=== PATIENT | male | born 1940 | race Caucasian/White ===

== ENCOUNTER → 2016-09-24 10:38 | Outpatient (CLI) | payer MEDICARE, OTHER ==
[2015-12-10 08:00] VITALS: BMI 27.3
[~2016-09-24 10:38] MED LIST: ASPIRIN325 MG PO; BAYER CHEWABLE81 MG PO; BENICAR20 MG PO; DIOVAN160 MG PO; FLOMAX0.4 MG; FLOMAX0.4 MG PO; HYDROCHLOROTHIA25 MG PO; MEDROL DOSE PACK4 MG PO; NORVASC5 MG PO; PLAVIX75 MG PO; PREVACID30 MG PO
[2016-09-24 11:30] LABS: INR 1.14 (0.85-1.17); PROTIME 14.5 SECONDS (11.6-15.0)
[2016-09-24 12:01] LABS: ALBUMIN 3.3 g/dL (3.4-5.0); ANION GAP 15.3 mmol/L (8-16); BILIRUBIN - TOTAL 1.21 mg/dL (0.2-1.3); CARBON DIOXIDE 22.8 mmol/L (21.0-32.0); CREATININE - SERUM 1.6 mg/dL (0.6-1.3); POTASSIUM - SERUM 4.1 mmol/L (3.5-5.1); PROTEIN - SERUM 7.5 g/dL (6.4-8.2)
[2016-09-25 10:19] LABS: HEPATITIS C ANTIBODY <0.1 (0.0-0.9)
== END | disposition home or self-care (01) ==
LOC: D.LAB 10:38 → D.CT 11:30
PROVIDERS: Internal Medicine Gastroenterology
DX: R10.9 Unspecified abdominal pain (principal); R06.02 Shortness of breath; R63.5 Abnormal weight gain

== ENCOUNTER 2016-09-30 15:11 | Inpatient (IN) | payer MEDICARE, OTHER ==
[~2016-09-30] VITALS: Ht 170.2 cm; Wt 83.8 kg
[2016-09-30 15:44] LABS: BASOPHILS 0.4 % (0-2); EOSINOPHILS 1.7 % (0-7); HEMATOCRIT 33.1 % (42.0-54.0); HEMOGLOBIN 9.1 g/dL (13.5-17.5); IMMATURE GRANULOCYTES 0.4 % (0-5); LYMPHOCYTES 16.1 % (15-50); MCH 21.5 pg (26.0-34.0); MCHC 27.5 g/dL (31.0-37.0); MCV 78.1 fL (80.0-100.0); MEAN PLATELET VOLUME 8.9 fL (7.4-10.4); MONOCYTES 12.4 % (2-11); RBC 4.24 10x6/uL (4.20-6.10); RDW 19.8 % (11.5-14.5); WBC 4.6 10x3/uL (4.8-10.8)
[2016-09-30 16:05] LABS: ALBUMIN 3.5 g/dL (3.4-5.0); ANION GAP 16.9 mmol/L (8-16); BILIRUBIN - TOTAL 1.06 mg/dL (0.2-1.3); CARBON DIOXIDE 21.3 mmol/L (21.0-32.0); CREATININE - SERUM 1.6 mg/dL (0.6-1.3); POTASSIUM - SERUM 4.2 mmol/L (3.5-5.1); PROTEIN - SERUM 7.5 g/dL (6.4-8.2)
[2016-09-30 16:13] LABS: TROPONIN-I 0.051 ng/mL (0.000-0.060)
[2016-09-30 16:28] LABS: PLATELET COUNT 212 10x3/uL (130-400)
[2016-09-30 20:17] LABS: APPEARANCE CLEAR (CLEAR); BILIRUBIN NEGATIVE (NEGATIVE); COLOR YELLOW (YELLOW); GLUCOSE NEGATIVE (NEGATIVE); KETONE NEGATIVE (NEGATIVE); LEUKOCYTE ESTERASE NEGATIVE (NEGATIVE); NITRITE NEGATIVE (NEGATIVE); PROTEIN NEGATIVE (NEGATIVE); UROBILINOGEN NORMAL (NORMAL)
--- NOTE | 2016-09-30 20:54 | NUR ---
RECEIVED FROM ER, [id number], O2-4L, PLACED ON TELEMTRY, SCD ARE ON, BED IS LOW, SR X2, CALL LIGHT IN REACH, WILL CONTINUE TO MONITOR
[2016-09-30] MEDS ORDERED: FUROSEMIDE20 MG PO (20:57)
[2016-09-30] MEDS ORDERED: BREO ELLIPTA 21 EACH (20:57)
[2016-09-30 21:17] VITALS: BP 142/78
--- NOTE | 2016-09-30 23:19 | NUR ---
PT REST IN BED, EYE OPEN, DENIES NEEDS.
[2016-10-01] VITALS (7 sets, daily range): BP systolic 111–142; BP diastolic 56–79; Ht 170.2 cm; Wt 83.8 kg
--- NOTE | 2016-10-01 03:02 | NUR ---
PT LYING IN BED, AWAKE, ALERT, ORIENTED, IN NO ACUTE DISTRESS. PT DENIES ANY NEEDS AT THIS TIME. WILL CONTINUE TO MONITOR CLOSELY. BED LOW, CALL LIGHT IN REACH, SIDE RAILS X 2, HOB 30 DEGREES. PT TO CALL WHEN NEEDING ANY ASSISTANCE.
--- NOTE | 2016-10-01 04:31 | NUR ---
PT IS SLEEPING. BED IS LOW, SRX2, CALL LIGHT IN REACH, WILL CONTINUE TO MONITOR
[2016-10-01 14:13] LABS: % SATURATION 5 % (15-55); IRON 24 ug/dl (35-150); TOTAL IRON BIND CAPACITY 435 ug/dl (260-445); UNSAT IRON BIND CAPACITY 411 ug/dl (150-375)
--- NOTE | 2016-10-01 20:50 | NUR ---
PT RECEIVED SITTING UP IN BED AAOX3 WATCHING TV AT THIS TIME. REQUESTS ICE CREAM AND A NEW GOWN. ASSESSMENT COMPLETED PER FLOW SHEET AT THIS TIME. PT DENIES OTHER NEEDS. BED LOW. PHONE AND CALL LIGHT IN REACH. SRX2.
--- NOTE | 2016-10-01 23:56 | NUR ---
PT RESTING QUIETLY AT THIS TIME WITH EYES CLOSED. RESPIRATIONS EVEN, NON-LABORED. NO ACUTE DISTRESS NOTED AT THIS TIME. BED LOW. PHONE AND CALL LIGHT IN REACH. SRX2.
--- NOTE | 2016-10-02 01:00 | NUR ---
PT REQUESTS COKE AT THIS TIME. DENIES OTHER NEEDS. BED LOW. PHONE AND CALL LIGHT IN REACH. SRX2.
[2016-10-02 04:00] VITALS: BP 98/48
--- NOTE | 2016-10-02 05:20 | NUR ---
LASIX IVP GIVEN AT THIS TIME. PT REQUESTS NEW GOWN AND TOWEL AT THIS TIME. DENIES OTHER NEEDS. BED LOW. PHONE AND CALL LIGHT IN REACH. SRX2.
[2016-10-02 05:45] LABS: BASOPHILS 0.6 % (0-2); EOSINOPHILS 3.7 % (0-7); HEMATOCRIT 32.2 % (42.0-54.0); HEMOGLOBIN 9.1 g/dL (13.5-17.5); IMMATURE GRANULOCYTES 0.2 % (0-5); LYMPHOCYTES 15.3 % (15-50); MCH 21.5 pg (26.0-34.0); MCHC 28.3 g/dL (31.0-37.0); MEAN PLATELET VOLUME 9.2 fL (7.4-10.4); MONOCYTES 13.7 % (2-11); NEUTROPHILS 66.5 % (40-80); PLATELET COUNT 236 10x3/uL (130-400); RBC 4.24 10x6/uL (4.20-6.10); RDW 19.6 % (11.5-14.5); WBC 5.2 10x3/uL (4.8-10.8)
[2016-10-02 06:03] LABS: ANION GAP 14.6 mmol/L (8-16); CALCIUM 9.1 mg/dL (8.5-10.1); CARBON DIOXIDE 24.4 mmol/L (21.0-32.0); CREATININE - SERUM 1.6 mg/dL (0.6-1.3)
[2016-10-02 06:16] LABS: MCV 75.9 fL (80.0-100.0)
[2016-10-02 08:17] VITALS: BP 111/61
[2016-10-02 08:21] LABS: FOLATE (FOLIC ACID) - SERUM 13.7 ng/mL (>3.0)
--- NOTE | 2016-10-02 08:54 | NUR ---
PT UP TO BR. AMBULATING WITH EVEN GAIT. BREAKFAST TRAY AT BEDSIDE WITH 75% EATEN. STATES " I'M TOO FULL TO EAT MORE". MEDICATIONS GIVEN ORDERED. S/R UP X 2, CALL LIGHT WITHIN REACH, BED IN LOWEST POSITION. REPOSITIONED IN BED. STATES NO FURTHER NEEDS AT THIS TIME. WILL CONTINUE TO MONITOR.
[2016-10-02] MEDS ORDERED: FERREX 150 PLUS1 CAP PO (11:46)
[2016-10-02 12:00] VITALS: BP 108/56
--- NOTE | 2016-10-02 13:55 | NUR ---
IV DC'D WITH TIP INTACT. COVERED WITH 2X2 GAUZE AND TAPE. TOLERATED WELL. HUIZAR DC'D WITH TIP INTACT. REMOVED 10CC CLEAR FLUID FROM BALLOON BEFORE REMOVAL. TOLERATED WELL. DISCHARGE INSTRUCTIONS REVIEWED WITH PT AND SPOUSE. VERBAL AND WRITTEN ACKNOWLEDGEMENT RETURNED
--- NOTE | 2016-10-02 14:02 | NUR ---
Patient Name: CONTRERAS SHARMA Admission Status: ER Accout number: [id number] Admission Date: 10-01-2016 : 1940 Admission Diagnosis: Attending: GERARDO Current LOS: 1 Anticipated DC Date: 10-02-2016 Planned Disposition: Home Primary Insurance: MEDICARE A & B Discharge Planning Comments: * Is the patient Alert and Oriented? Yes 0 * How many steps to enter\exit or inside your home? 4 0 * PCP DR. DUSTIN MCALLISTER 0 * Pharmacy [facility] [address] 0 * Preadmission Environment Home with Family 0 * ADLs Independent 0 * Equipment None 0 * Other Equipment NO MEDICAL EQUIPMENT PROVIDER PREFERENCE 0 * List name and contact numbers for known caregivers / representatives who currently or will assist patient after discharge: LALO SHARMA, SPOUSE, 0 * Community resources currently utilized None 0 * Please name any agencies selected above. NONE 0 * Additional services required to return to the preadmission environment? No 0 * Can the patient safely return to the preadmission environment? Yes 0 * Has this patient been hospitalized within the prior 30 days at any hospital? No 0 CM MET WITH PT AND SPOUSE IN ROOM TO DISCUSS DISCHARGE PLANNING AND NEEDS. PT REPORTS LIVING AT HOME INDEPENDENTLY WITH HIS SPOUSE. PT HAS NO MEDICAL EQUIPMENT AND NO OUTSIDE SERVICES ASSISTING IN THE HOME. CM DISCUSSED AVAILABILITY OF HOME HEALTH, REHAB SERVICES AND MEDICAL EQUIPMENT. PT DENIES DISCHARGE NEEDS, REPORTS HIS SPOUSE IS HERE TO PICK HIM UP FOR DISCHARGE HOME TODAY. IMPORTANT MESSAGE FROM MEDICARE PROVIDED AND EXPLAINED Wheel And Pinion Inspector: Jules Acosta
--- NOTE | 2016-10-02 14:14 | NUR ---
PT LEFT VIA WHEELCHAIR WITH SPOUSE TO TRANSPORT BY PRIVATE VEHICLE.
--- NOTE | 2016-10-03 13:26 | EC ---
PATIENT:CONTRERAS SHARMA DATE OF SERVICE: 10/01/16 SEX: M MEDICAL RECORD: [id number] DATE OF : [birth year] LOCATION:D.M2 D.213 AGE OF PATIENT: 76 ADMISSION DATE: 10/01/16 REFERRING PHYSICIAN: INTERPRETING PHYSICIAN: EDWARD PETTY M.D. ECHOCARDIOGRAM REPORT ECHO CHARGES 4 ECHO COMPLETE CLINICAL DIAGNOSIS: CHF ECHOCARDIOGRAPHIC MEASUREMENTS (adult normal given) AC root (d.<3.7cm) 3.6 LV Septum d (<1.2 cm> 2.1 Valve Excursion 1.2 LV Septum (systole) 2.9 Left Atria (s.<4.0cm> 4.0 LVPW d(<1.2cm) 1.7 RV (d.<2.3cm) 3.9 LVPW (sytole) 2.4 LV diastole(<5.6CM) 6.5 MV E-F(>70mm/sec) LV systole 4.6 LVOT Diameter 1.8 MV exc.(>10mm) Est.ejection fraction (50-75%) Pericardial Effusion N DOPPLER: LVIT A 69.0 E 94.0 LA RVSP 51.4 LVOT 106 AOP1/2T Asc. Ao 246 RVOT 88.0 RA PA 120 AV Gradient Peak 24.3 AV Mean 9.9 AV Area 1.2 MV Gradient Peak 5.4 MV Mean 2.1 MV Area COMMENTS: Pneumatic Tool Operator: Nehemiah QUIROSOE Security Inspector:Chau Petty TAPE# PACS DATE OF SERVICE: 10/01/2016 INDICATION: Congestive heart failure. REFERRING PHYSICIAN: Quan Danielson MD DESCRIPTION: Left ventricle is mildly dilated. However, systolic function is preserved. Estimated ejection fraction is in the order 55%. Mitral valve is structurally normal. There is trivial regurgitation seen. Left atrium is mildly dilated. The aortic valve is trileaflet. Leaflets are slightly ECHOCARDIOGRAM REPORT [id number] CONTRERAS SHARMA thickened. There is mild stenosis appreciated. There is no evidence of insufficiency. Right ventricle is mildly dilated. Tricuspid valve is structurally normal. There is mild regurgitation seen. Right ventricular systolic pressure is elevated at 51 mmHg. There is no pericardial effusion noted. IMPRESSION: 1. Mildly dilated left ventricle with preserved ejection fraction of 55%. 2. Mild aortic stenosis. 3. Mild tricuspid regurgitation with elevated pulmonary pressures. TRANSINT:[id number] Voice Confirmation ID: [id number] DOCUMENT ID: [id number] EDWARD PETTY M.D. at 1326 CC: [id number] DICTATION DATE: 10/01/16 1526 BOAT CREW DECK HAND: 10/02/16 0117 DIS IN 10/02/16 [place] [id number] [place] [id number]
== END 2016-10-02 14:15 | disposition home or self-care (01) | DRG 291 ==
LOC: D.ER 15:11 → D.M2 19:53 → OBSVTIME 19:54 → D.M2 10-01 17:03
PROVIDERS: Emergency Medicine; ADMIT Family Medicine
DX: I13.0 Hypertensive heart and chronic kidney disease with heart failure and stage 1 through stage 4 chronic kidney disease, or unspecified chronic kidney disease (principal); I50.21 Acute systolic (congestive) heart failure; N18.3 Chronic kidney disease, stage 3 (moderate); I25.10 Atherosclerotic heart disease of native coronary artery without angina pectoris; Z95.5 Presence of coronary angioplasty implant and graft; Z95.1 Presence of aortocoronary bypass graft; D64.9 Anemia, unspecified; Z87.891 Personal history of nicotine dependence

== ENCOUNTER 2016-10-14 10:58 | Outpatient (CLI) | payer MEDICARE, OTHER ==
[~2016-10-14] VITALS: Ht 170.2 cm; Wt 79.5 kg
--- NOTE | ~2016-10-14 | HEMODYNAMI ---
PATIENT:DANYEL SHARMA MEDICAL RECORD: [id number] : [birth year] LOCATION:DAZAEL ADMISSION DATE: 10/14/16 Generatedon:10/14/201613:35 Patient name: DANYEL SHARMA Patient #: [id number] SSN: : 1940 Date of study: 10/14/2016 Page: Of Hemodynamic Procedure Report Patient Data Patient Demographics Procedure consent was obtained First Name: DANYEL Gender: Male Last Name: ZACHARY : 1940 Middle Initial: E Age: 76 year(s) Patient #: [id number] Race: Additional ID: [id number] Contact details [address]: [address] [place] [address] [address] State: [place] City: [place] Zip code: [address] Past Medical History Allergies Allergen Reaction Date Comments Reported Other allergy 12/10/2015 Sulfa, SUNDAR Inhibitors, Amlodipine Other allergy 10/14/2016 Sulfa Admission Admission Data Admission Date: 10/14/2016 Admission Time: 10:58 Lab Results Lab Result Date: 10/14/2016 Lab Result Time: 0:00 Biochemistry Name Units Result Min Max BUN mg/dl 25 --(----)-* 7 18 Creatinine mg/dl 1.5 --(----)-* 0.6 1.3 CBC Name Units Result Min Max Hemoglobin g/dl 10.6 *-(----)-- 13.5 17.5 Procedure Procedure Types Cath Procedure Diagnostic Procedure LHC LHC w/Coronaries w/Grafts Miscellaneous Procedures Moderate Sedation up to 30 minutes Procedure Description Procedure Date Procedure Date: 10/14/2016 Procedure Start Time: 13:16 Procedure End Time: 13:34 Procedure Staff Name Function Jai Petty MD Performing Physician Aleksandra Sullivan RT Scrub Wilfredo Mace RN Nurse Danyel Vargas RT Monitor Procedure Data Cath Procedure Fluoroscopy Diagnostic fluoroscopy Total fluoroscopy Time: 6.4 time: 6.4 min min Diagnostic fluoroscopy Total fluoroscopy dose: 624 dose: 624 mGy mGy Contrast Material Contrast Material Type Amount (ml) Isovue 300 49 Entry Location Entry Primary Successful Side Size Upsize Upsize Entry Closure Cisse ccessful Closure Location (Fr) 1 (Fr) 2 (Fr) Remarks Device Remarks Radial Right 6 Fr Mechanical artery Short Compression Diagnostic catheters Device Type Used For End Catheter Placement Terumo Optitorque 5Fr Left Coronary Shirley catheter Angiography Procedure Complications No complications Procedure Medications Medication Administration Route Dosage Oxygen NC 2 l/min Lidocaine 2% added to field 20 Heparin Flush Bag added to field 2 bags (1000units/500ml NS) 0.9% NaCl I.V. 100 ml/hr Versed I.V. 1 mg Fentanyl I.V. 50 mcg Radial Cocktail I.A. 1 syringe (Verapomil 2mg/Nitro 400mcg/Heparin 1500units) Versed I.V. 1 mg Fentanyl I.V. 50 mcg Versed I.V. 1 mg Fentanyl I.V. 50 mcg Hemodynamics Rest Heart Rate: 88 (bpm) Snapshots Pre Cath Intra NCS Post Cath Vital Signs Time Heart Resp SPO2 etCO2 [id number] NIBP (mmHg) Rhythm Pain Sedation Rate (ipm) (%) (mmHg) (mmHg) Status Level (bpm) 13:06:21 83 18 98 0 0 152/89(127) NSR 0 (11) 10(A) , No pain 13:10:35 81 17 96 0 0 142/82(120) NSR 0 (11) 10(A) , No pain 13:14:55 74 17 94 0 0 127/72(110) NSR 0 (11) 10(A) , No pain 13:19:11 78 18 95 0 0 138/64(93) NSR 0 (11) 10(A) , No pain 13:23:19 88 18 94 0 0 112/75(86) NSR 0 (11) 9(A) , No pain 13:27:28 79 14 91 0 0 123/64(86) NSR 0 (11) 9(A) , No pain 13:31:40 80 17 95 0 0 119/69(95) NSR 0 (11) 10(A) , No pain Medications Time Medication Route Dose Verified Delivered Reason Notes Effectiveness by by 13:04:16 Oxygen NC 2 l/min Jai Villalobos used for Jovanny Mace cloth washer operator 13:04:22 Lidocaine 2% added 20ml Jai Jai for local to vial Jovanny Petty MD anesthetic field 13:04:29 Heparin Flush added 2 bags Jai Jai used for Bag to Jovanny Petty MD procedure (1000units/500ml field NS) 13:04:38 0.9% NaCl I.V. 100 Jai Buffie Per ml/hr Jovanny Mace RN physician 13:12:42 Versed I.V. 1 mg Jia Buffie for sedation Jovanny Mace RN 13:12:48 Fentanyl I.V. 50 mcg Jai Buffie for sedation Jovanny Mace RN 13:18:25 Radial Cocktail I.A. 1 Jai Jai for (Verapomil syringe Jovanny Petty MD vasodilation 2mg/Nitro 400mcg/Heparin 1500units) 13:18:30 Versed I.V. 1 mg Jai Buffie for sedation Jovanny Mace RN 13:18:34 Fentanyl I.V. 50 mcg Jai Buffie for sedation Jovanny Mace RN 13:23:46 Versed I.V. 1 mg Jai Buffie for sedation Jovanny Mace RN 13:23:49 Fentanyl I.V. 50 mcg Jai Buffie for sedation Jovanny Mace RN Procedure Log Time Note 12:40:43 ACC Patient presents with Stable Angina CCS Anginal Class 2--Slight limitation of ordinary activity. 12:40:45 Diagnostic Cath status Elective 12:40:47 Wilfredo Mace RN sent for patient. Start room use. 12:40:56 Time tracking: Regular hours 12:41:02 Plan of Care:Hemodynamics will remain stable., Cardiac rhythm will remain stable., Comfort level will be maintained., Respiratory function will remain adequate., Patient/ family verbilizes understanding of procedure., Procedure tolerated without complication., Recovers from procedure without complications.. 12:52:42 Patient received from Pre/Post Procedure Room to CCL 1 Alert and oriented. Tansferred to table in Supine position. 12:52:45 Warm blankets applied, and nette hugger turned on for patient comfort. 12:52:48 Correct patient and procedure confirmed by team. 12:52:52 Signed procedure consent form obtained from patient. 12:53:24 Patient NPO since Midnight. 12:53:26 ECG and BP/O2 sat monitors applied to patient. 12:53:31 Snore? Yes 12:53:32 Sleep apnea? No 12:53:40 Airway obstruction? Yes COPD 12:53:58 Dentures? Yes tight 12:54:09 Previous problem with sedation/anesthesia? No ? 12:54:23 Pre-procedure instructions explained to patient. 12:54:27 Pre-op teaching completed and patient verbalized understanding. 12:54:30 Family in waiting room. 12:55:03 Patient allergic to Other allergySulfa 12:55:07 Is the patient allergic to Iodine/contrast media? No. 12:55:10 Is patient on blood thinner?Yes 12:55:24 Patient diabetic? No. 12:55:33 Patient pain scale 0/10 ?. 12:55:44 IV patent on arrival in left hand with 0.9% NaCl at [facility]. 12:56:17 Right Radial & Right Groin area was prepped with chlora-prep and draped in sterile fashion 12:56:18 Alarms reviewed by R. N. 12:56:24 Sharps counted by scrub and verified by R.N. 12:56:26 Physician paged 13:04:16 Oxygen 2 l/min NC was administered by Wilfredo Mace RN; used for procedure; 13:04:22 Lidocaine 2% 20ml vial added to field was administered by Jai Petty MD; for local anesthetic; 13:04:29 Heparin Flush Bag (1000units/500ml NS) 2 bags added to field was administered by Jai Petty MD; used for procedure; 13:04:38 0.9% NaCl 100 ml/hr I.V. was administered by Wilfredo Mace RN; Per physician; 13:05:14 Vital chart was started 13:06:08 Lab Result : Creatinine 1.5 mg/dl 13:06:08 Lab Result : BUN 25 mg/dl 13:06:08 Lab Result : Hemoglobin 10.6 g/dl 13:08:33 --------ALL STOP TIME OUT------ 13:08:33 Final Timeout: patient, procedure, and site verified with staff and physician. All members of the team are in agreement. 13:08:35 Right Radial & Right Groin site verified by team. 13:08:38 Physical assessment completed. ASA score P 2 - A patient with mild systemic disease as per Jai Petty MD. 13:08:42 Sedation plan: IV Moderate Sedation Versed, Fentanyl 13:08:52 Use device set Radial Dx 13:08:53 Acist Syringe opened to sterile field. 13:08:53 Medline Cath Pack opened to sterile field. 13:08:54 Bag Decanter opened to sterile field. 13:08:54 Terumo 6Fr Slender Glidesheath opened to sterile field. 13:08:54 St Armin 260cm J .035 wire opened to sterile field. 13:08:55 Acist Hand Control opened to sterile field. 13:08:55 Acist Manifold opened to sterile field. 13:08:55 Tegaderm 4 x 4 opened to sterile field. 13:08:56 MBrace Wrist Support opened to sterile field. 13:12:42 Versed 1 mg I.V. was administered by Wilfredo Mace RN; for sedation; 13:12:48 Fentanyl 50 mcg I.V. was administered by Wilfredo Mace RN; for sedation; 13:16:16 Procedure started. 13:16:16 Full Disclosure recording started 13:16:28 Local anesthetic to right radial artery with Lidocaine 2% by Jai Petty MD.INITIAL ACCESS ONLY 13:16:36 A 6 Fr Short sheath was inserted into the Right Radial artery 13:18:25 Radial Cocktail (Verapomil 2mg/Nitro 400mcg/Heparin 1500units) 1 syringe I.A. was administered by Jai Petty MD; for vasodilation; 13:18:30 Versed 1 mg I.V. was administered by Wilfredo Mace RN; for sedation; 13:18:34 Fentanyl 50 mcg I.V. was administered by Wilfredo Mace RN; for sedation; 13:20:30 A Terumo Optitorque 5Fr Shirley catheter was advanced over the wire and used for Left Coronary Angiography. 13:21:58 Catheter exchanged over wire. 13:22:05 Zero performed for pressure channel P1 13:22:24 Medtronic Launcher 6Fr EBU 4.0 guide catheter opened to sterile field. 13:22:54 LCA angiography performed. 13:23:23 Rhythm: sinus rhythm 13:23:25 Baseline sample Acquired. 13:23:46 Versed 1 mg I.V. was administered by Buffie Mace RN; for sedation; 13:23:49 Fentanyl 50 mcg I.V. was administered by Wilfredo Mace RN; for sedation; 13:26:29 Catheter removed. 13:26:53 Medtronic Launcher 6Fr AR 2.0 guide catheter opened to sterile field. 13:26:54 RCA angiography performed. 13:29:49 Catheter removed. 13:30:17 Medtronic Launcher 5Fr AL 2.0 guide catheter opened to sterile field. 13:30:23 SVG to RCA angiography performed. 13:30:54 Catheter removed. 13:31:31 Contrast amount:Isovue 300 49ml. 13:32:22 Sheath removed intact; hemostasis achieved with Mechanical Compression to the Right Radial artery. 13:32:25 Procedure ended.(Physican Out) 13:32:37 Fluoroscopy time 06.40 minutes. 13:32:42 Flurop Dose total: 624 13:32:42 Fluoroscopy dose: 624 mGy 13:32:43 Sharps counted by scrub and verified by R.N. 13:32:45 TR band inflated with 10cc of air. 13:32:47 Insertion/operative site no bleeding no hematoma. 13:32:55 Post right radial artery:stable 13:32:57 Post Procedure Pulses reassessed and unchanged 13:33:06 Post procedure rhythm: sinus rhythm 13:33:07 Post procedure instruction explained to patient.Patient verbalizes understanding. 13:33:29 Procedure type changed to Cath procedure, Diagnostic procedure, LHC, LHC w/Coronaries w/Grafts, Miscellaneous Procedures, Moderate Sedation up to 30 minutes 13:33:33 Procedure and supply charges have been captured, reviewed, submitted and are correct. 13:33:37 Procedure Complication : No complications 13:33:39 Vital chart was stopped 13:33:39 See physician's report for complete and final results. 13:33:43 Report given to Pre/Post Procedure Room. 13:33:46 Patient transfered to Pre/Post Procedure Room with Stretcher. 13:34:06 Terumo TR Band Standard opened to sterile field. 13:34:30 Procedure ended. 13:34:30 Full Disclosure recording stopped 13:34:41 End room use (Document Last) Device Usage Item Name Manufacture Quantity Catalog Hospital Part Current Minimal Lot# / Number Charge Number Stock Stock Serial# Code [facility] 1 [id number] 362258 654666 929004 20 Syringe Medical Systems Inc Medline Cardinal 1 [id number] 915941 45706 497681 5 Cath Pack Health Bag Microtek 1 2002S 918964 04983 650532 5 Decanter Medical Inc. Terumo 6Fr Terumo 1 [id number] 023345 047751 336620 [address] [facility] [address] Armin 1 158612 421091 289126 449982 30 260cm J .035 wire Acist Hand Acist 1 77935 953228 435424 242943 5 Control Medical Systems Inc Acist Acist 1 23793 935602 902713 718277 5 Manifold Medical Systems Inc Tegaderm 4 3M 1 1626W 804405 061664 331858 5 x 4 MBrace Advanced 1 140-0250-00 296362 58803 092365 5 Wrist Vascular Support Dynamics Terumo Terumo 1 95-6003 206141 842405 965253 5 Optitorque 5Fr Shirley catheter Medtronic Medtronic 1 [id number] 205624 49159 811872 1 Launcher 6Fr EBU 4.0 guide catheter Medtronic Medtronic 1 [id number] 064766 45443 232012 1 Launcher 6Fr AR 2.0 guide catheter Medtronic Medtronic 1 [id number] 327155 918778 039559 1 Launcher 5Fr AL 2.0 guide catheter Terumo TR Terumo 1 [id number] 877161 560303 131974 40 Band Standard Signature Audit [place] Stage Time Signature Unsigned Intra-Procedure 10/14/2016 Danyel Vargas 1:35:30 PM RT(R) Signatures Monitor : Danyel Vargas RT Signature : Date : Time : [facility] [address] [place] [address]
--- NOTE | ~2016-10-14 | OP ---
PATIENT NAME: CONTRERAS SHARMA MEDICAL RECORD: [id number] :38 LOCATION:D.CAT ADMISSION DATE: SURGEON: EDWARD CHAIDEZ M.D. DATE OF OPERATION: 10/14/2016 PROCEDURES PERFORMED: 1. Selective coronary angiography. 2. Bypass angiography. INDICATION: A 76-year-old gentleman presents with symptoms of worsening angina. EQUIPMENT USED: Diagnostic 6-S[place] Arabian EBU 4.0 guide, 5-S[place] AL2 catheter. TECHNIQUE: A 6-[place] sheath was inserted in retrograde fashion in the right radial artery. Next, selective coronary angiography was performed in standard views 6-[place] EBU 4.0 guide and 5-[place] AL2. Bypass angiography was performed using an AL2 catheter as well. CORONARY ANATOMY: 1. Left main: Left main trunk has been stented. The stent is widely patent. There is no evidence of restenosis. 2. LAD: This is a moderate caliber vessel extending to the apex. The proximal vessel has been stented. The stent is widely patent. There are mild irregularities seen throughout the LAD, but nothing worse than 30% and unchanged from previous catheterization. 3. Circumflex: This vessel is small in caliber. It has a 90% stenosis in the proximal segment before the first lateral branch. This is unchanged from previous study. The continuation of the circumflex is occluded. 4. Right coronary artery: Right coronary is occluded at the origin. 5. Saphenous vein graft to the PDA. This graft is widely patent throughout its course. The distal vessel has been stented. The stents are widely patent. There is no evidence of restenosis. IMPRESSION: Patent stents in the left anterior descending and right coronary artery graft without evidence of restenosis. PLAN: We will continue the medical management. TRANSINT:[id number] Voice Confirmation ID: [id number] DOCUMENT ID: [id number] EDWARD CHAIDEZ M.D. CC: [id number] DICTATION DATE: 10/14/16 1336 FRONT SIGHT ATTACHER: 10/14/16 2353 DEP CLI 10/14/16 [place] [id number] [place] [id number]
[~2016-10-14 10:58] MED LIST changes: +BREO ELLIPTA 21 EACH; +FERREX 150 PLUS1 CAP PO; +FUROSEMIDE20 MG PO
[2016-10-14 11:19] VITALS: BP 140/73; Ht 170.2 cm; Wt 79.5 kg
[2016-10-14 11:44] LABS: BASOPHILS 0.4 % (0-2); EOSINOPHILS 3.2 % (0-7); HEMATOCRIT 37.6 % (42.0-54.0); HEMOGLOBIN 10.6 g/dL (13.5-17.5); IMMATURE GRANULOCYTES 0.4 % (0-5); LYMPHOCYTES 15.2 % (15-50); MCH 22.5 pg (26.0-34.0); MCHC 28.2 g/dL (31.0-37.0); MCV 79.7 fL (80.0-100.0); MEAN PLATELET VOLUME 8.9 fL (7.4-10.4); MONOCYTES 13.6 % (2-11); NEUTROPHILS 67.2 % (40-80); PLATELET COUNT 279 10x3/uL (130-400); RBC 4.72 10x6/uL (4.20-6.10); RDW 22.6 % (11.5-14.5)
[2016-10-14 11:49] LABS: ANION GAP 14.9 mmol/L (8-16); CALCIUM 9.2 mg/dL (8.5-10.1); CARBON DIOXIDE 24.1 mmol/L (21.0-32.0); CREATININE - SERUM 1.5 mg/dL (0.6-1.3)
--- NOTE | 2016-10-14 13:51 | NUR ---
1345 RECEIVED PT FROM MASTIC WORKER. PT IS ALERT, DENIES ANY C/O CHEST PAIN OR NAUSEA. RR EVEN AND UNLABORED. TR BAND CDI TO RIGHT WRIST, NO BLEEDING OR HEMATOMA NOTED. WRIST IMMOBILIZER IN PLACE. SANDWICH AND PO FLUIDS SERVED. FAMILY AT BEDSIDE. CALL LIGHT IN REACH, PT INSTRUCTED TO CALL FOR NEEDS.
--- NOTE | 2016-10-14 14:00 | NUR ---
1400 PT DENIES ANY C/O. TR ABND TO RIGHT WRIST IS CDI, NO BLEEDING OR HEMATOMA NOTED. FINGERS WARM TO TOUCH. CAP REFILL IS BRISK. AT BEDSIDE.
--- NOTE | 2016-10-14 14:55 | NUR ---
1430 PT STEPHEN SANDWICH AND PO FLUIDS WITH NO C/O. TR BAND CDI, NO BLEEDING OR HEMATOMA NOTED. AT BEDSIDE, CALL LIGHT IN REACH.
--- NOTE | 2016-10-14 15:03 | NUR ---
1500 PT DENIES ANY C/O. TR BAND CDI TO RIGHT WRIST. AT BEDSIDE.
--- NOTE | 2016-10-14 15:23 | NUR ---
1505 2 CC OF AIR REMOVED FROM TR BAND WITH OOZING FROM CATH SITE NOTED, 2 CC OF AIR RE-INSTILLED AND NO FURTHER BLEEDING NOTED.
--- NOTE | 2016-10-14 15:45 | NUR ---
1545 2 CC OF AIR REMOVED FROM TR BAND WITH NO BLEEDING OR HEMATOMA NOTED. PT DENIES ANY C/O. 1630 ALL AIR IS OUT OF TR BAND WITH NO BLEEDING OR HEMATOMA NOTED. 2X2 AND TEGADERM APPLIED. IV DC'D WITH CATH INTACT. 1640 REVIEWED DC INSTRUCTIONS WITH PT AND WHO VERBALIZE UNDERSTANDING. PT DRESSING FOR DC TO HOME. 1650 PT CALLED NURSE INTO ROOM, OOZING AND SMALL HEMATOMA AT CATH ENTRY SITE. DRESSING IS SATURATED. PRESSURE HELD AT SITE X 5 MINUTES AND NO FURTHER BLEEDING. DR CHAIDEZ NOTIFIED AND ORDER FOR TR BAND TO BE PLACED FOR ADDITIONAL 30 MINUTES AND THEN REMOVE. IF NO FURTHER BLEEDING PT MAY BE DC'D TO HOME.
--- NOTE | 2016-10-14 17:51 | NUR ---
1652 TR BAND APPLIED TO CATH ENTRY SITE. NO BLEEDING AT SITE AT THIS TIME. BAND INFLATED WITH 10 CC OF AIR. WILL CONTINUE TO MONITOR. HEMATOMA REDUCED WITH APPROX SILVER DOLLAR SIZED BRUISE TO CATH SITE. 1725 TR BAND DEFLATION BEGUN 1740 TR BAND IS OFF WITH NO BLEEDING NOTED. 2X2 AND TEGADERM APPLIED. REVIEWED DC INSTRUCTIONS AGAIN WITH PT AND WHO VERBALIZE UNDERSTANDING. 1750 DRESSING REMAINS CDI TO RIGHT WRIST, WITH NO BLEEDING OR HEMATOMA NOTED. PT ESCORTED TO PRIVATE AUTO VIA WC WITH DRIVING HIM HOME. PT DENIES ANY C/O AT THIS TIME.
== END 2016-10-14 17:50 | disposition home or self-care (01) ==
LOC: D.CATH 10:58
PROVIDERS: Internal Medicine Cardiovascular Disease
DX: I25.119 Atherosclerotic heart disease of native coronary artery with unspecified angina pectoris (principal); Z95.1 Presence of aortocoronary bypass graft

== ENCOUNTER → 2016-10-22 14:51 | Outpatient (CLI) | payer MEDICARE, OTHER ==
[2016-10-14 11:19] VITALS: BMI 27.4
== END | disposition home or self-care (01) ==
LOC: D.LAB 14:51
DX: N40.0 Benign prostatic hyperplasia without lower urinary tract symptoms (principal)

== ENCOUNTER → 2016-10-28 09:28 | Outpatient (CLI) | payer MEDICARE, OTHER ==
[2016-10-14 11:19] VITALS: BMI 27.4
[2016-10-28 10:32] LABS: % SATURATION 9 % (15-55); IRON 38 ug/dl (35-150); TOTAL IRON BIND CAPACITY 407 ug/dl (260-445); UNSAT IRON BIND CAPACITY 369 ug/dl (150-375)
== END | disposition home or self-care (01) ==
LOC: D.LAB 09:28
PROVIDERS: Internal Medicine Gastroenterology
DX: D64.9 Anemia, unspecified (principal); R19.5 Other fecal abnormalities

== ENCOUNTER 2016-12-21 02:03 | Inpatient (IN) | payer MEDICARE, OTHER ==
[~2016-12-21] VITALS: Ht 170.2 cm; Wt 76.8 kg
--- NOTE | ~2016-12-21 | HEMODYNAMI ---
PATIENT:CONTRERAS SAHRMA MEDICAL RECORD: [id number] : 38 LOCATION:[address] ADMISSION DATE: 12/21/16 Generatedon:12/23/20168:32 Patient name: CONTRERAS SHARMA Patient #: [id number] SSN: : 1940 Date of study: 12/23/2016 Page: Of Hemodynamic Procedure Report Patient Data Patient Demographics Procedure consent was obtained First Name: CONTRERAS Gender: Male Last Name: ZACHARY : 1940 Middle Initial: E Age: 76 year(s) Patient #: [id number] Race: Additional ID: [id number] Contact details [address]: [address] [place] [address] [address] State: [place] City: [place] Zip code: [address] Past Medical History Allergies Allergen Reaction Date Comments Reported Other allergy 12/10/2015 Sulfa, SUNDAR Inhibitors, Amlodipine Other allergy 10/14/2016 Sulfa Sulfa drugs 12/23/2016 Admission Admission Data Admission Date: 12/21/2016 Admission Time: 3:43 Room #: D.2123 Lab Results Lab Result Date: 12/23/2016 Lab Result Time: 0:00 Biochemistry Name Units Result Min Max Creatinine mg/dl 1.9 --(----)-* 0.6 1.3 CBC Name Units Result Min Max Hemoglobin g/dl 10 *-(----)-- 13.5 17.5 Procedure Procedure Types Cath Procedure Diagnostic Procedure LHC Coronaries w/Grafts Peripheral Cath Diagnostic Procedure Cath Peripheral Oclpq-Ssmqgxv-Jtu-Off Peripheral vascular Intervention Stent Stent Iliac w/plasty Initial Procedure Description Procedure Date Procedure Date: 12/23/2016 Procedure Start Time: 8:04 Procedure End Time: 8:31 Procedure Staff Name Function Nitin Franklin MD Performing Physician Candace Davenport RT Scrub Wilfredo Mace RN Nurse Juan Burton RT Monitor Procedure Data Cath Procedure Fluoroscopy Diagnostic fluoroscopy Total fluoroscopy Time: 7.1 time: 7.1 min min Diagnostic fluoroscopy Total fluoroscopy dose: 842 dose: 842 mGy mGy Contrast Material Contrast Material Type Amount (ml) Isovue 300 125 Entry Location Entry Primary Successful Side Size Upsize 1 Upsize Entry Closure Cisse ccessful Closure Location (Fr) (Fr) 2 (Fr) Remarks Device Remarks Femoral Right 5 Fr 6 Fr 6 Fr Exoseal artery Mid-Length Short Estimated blood loss: 10 ml Diagnostic catheters Device Type Used For End Catheter Placement Cordis 5Fr Pigtail LV Angiography Catheter (MP) Cordis 5Fr JL 4.0 Left Coronary Catheter (MP) Angiography Diagnostic Infinity 5Fr Left Coronary JL 6 catheter Angiography Diagnostic Infinity 5Fr SVG Angiography AR 2 MOD catheter Procedure Complications No complications Procedure Medications Medication Administration Route Dosage Oxygen NC 4 l/min Lidocaine 2% added to field 20 Heparin Flush Bag added to field 2 bags (1000units/500ml NS) 0.9% NaCl I.V. 100 ml/hr Versed I.V. 1 mg Fentanyl I.V. 50 mcg Versed I.V. 1 mg Fentanyl I.V. 50 mcg Heparin Bolus I.V. 4000 units 0.9% NaCl I.V. bolus 250 ml Plavix P.O. 75 mg Hemodynamics Rest HGB: 10 (g/dl) Heart Rate: 84 (bpm) Snapshots Pre Cath Intra NCS Post Cath Vital Signs Time Heart Resp SPO2 etCO2 AC2dmsi NIBP (mmHg) Rhythm Pain Sedation Rate (ipm) (%) (mmHg) (mmHg) Status Level (bpm) 7:49:17 86 20 96 0 0 135/80(101) NSR 0 (11) 10(A) , No pain 7:53:27 88 13 95 0 0 124/74(98) NSR 0 (11) 10(A) , No pain 7:57:33 89 25 94 0 0 115/76(96) NSR 0 (11) 10(A) , No pain 8:01:43 87 20 93 0 0 96/55(72) NSR 0 (11) 10(A) , No pain 8:05:47 89 21 98 0 0 91/55(69) NSR 0 (11) 10(A) , No pain 8:09:48 93 19 97 0 0 98/55(81) NSR 0 (11) 9(A) , No pain 8:13:54 91 17 95 0 0 84/48(59) NSR 0 (11) 9(A) , No pain 8:17:54 88 17 95 0 0 87/53(74) NSR 0 (11) 9(A) , No pain 8:21:51 93 25 97 0 0 97/65(80) NSR 0 (11) 9(A) , No pain 8:25:51 99 25 96 0 0 103/68(83) NSR 0 (11) 10(A) , No pain 8:29:55 101 24 93 0 0 94/63(76) NSR 0 (11) 10(A) , No pain Medications Time Medication Route Dose Verified Delivered Reason Notes Effectiveness by by 7:50:10 Oxygen NC 4 Nitin Buffie Per physician l/min Rigoberto Mace RN 7:50:16 Plavix P.O. 75 mg Nitin Buffie for Rigoberto Mace RN antiplatelet therapy 7:53:17 Lidocaine 2% added 20ml Nitin Nitin for local to vial Rigoberto Franklin MD anesthetic field 7:53:24 Heparin Flush added 2 Nitin Nitin used for Bag to bags Rigoberto Franklin MD procedure (1000units/500ml field NS) 7:53:34 0.9% NaCl I.V. 100 Nitin Buffie Per physician ml/hr Rigoberto Mace RN 8:03:20 Versed I.V. 1 mg Nitin Buffie for sedation Rigoberto Mace RN 8:03:26 Fentanyl I.V. 50 Nitin Buffie for sedation mcg Rigoberto Mace RN 8:10:08 Versed I.V. 1 mg Nitin Buffie for sedation Rigoberto Mace RN 8:10:11 Fentanyl I.V. 50 Nitin Buffie for sedation mcg Rigoberto Mace RN 8:14:24 0.9% NaCl I.V. 250 Nitintessy Yeie Per physician bolus ml Rigoberto Mace RN 8:14:30 Heparin Bolus I.V. 4000 Nitin Yeie for verifie d units Rigoberto Mace RN anticoagulation with dr franklin Procedure Log Time Note 7:30:08 Juan Burton RT(R) sent for patient. Start room use. 7:30:09 Time tracking: Regular hours 7:30:13 Plan of Care:Hemodynamics will remain stable., Cardiac rhythm will remain stable., Comfort level will be maintained., Respiratory function will remain adequate., Patient/ family verbilizes understanding of procedure., Procedure tolerated without complication., Recovers from procedure without complications.. 7:48:08 Patient received from PCU to CCL 1 Alert and oriented. Tansferred to table in Supine position. 7:48:08 Warm blankets applied, and nette hugger turned on for patient comfort. 7:48:09 Correct patient and procedure confirmed by team. 7:48:10 Signed procedure consent form obtained from patient. 7:48:11 ECG and BP/O2 sat monitors applied to patient. 7:48:12 Vital chart was started 7:48:13 Full Disclosure recording started 7:50:10 Oxygen 4 l/min NC was administered by Wilfredo Mace RN; Per physician; 7:50:16 Plavix 75 mg P.O. was administered by Wilfredo Mace RN; for antiplatelet therapy; 7:52:57 Rhythm: sinus rhythm 7:52:59 Baseline sample Acquired. 7:53:17 Lidocaine 2% 20ml vial added to field was administered by Nitin Franklin MD; for local anesthetic; 7:53:24 Heparin Flush Bag (1000units/500ml NS) 2 bags added to field was administered by Nitin Franklin MD; used for procedure; 7:53:34 0.9% NaCl 100 ml/hr I.V. was administered by Wilfredo Mace RN; Per physician; 7:53:39 H&P Date Dictated: 12/21/2016 Within 30 days and on chart.. 7:53:41 Pre-procedure instructions explained to patient. 7:53:42 Pre-op teaching completed and patient verbalized understanding. 7:53:43 Family in waiting room. 7:53:45 Patient NPO since Midnight. 7:53:53 Patient allergic to Sulfa drugs 7:53:55 Is the patient allergic to Iodine/contrast media? No. 7:54:03 Is patient on blood thinner?Yes 7:54:06 ACC The patient was administered the following blood thiners within the last 24 hours: ACCPlavix 7:54:45 Patient diabetic? No. 7:54:49 Previous problem with sedation/anesthesia? No ? 7:54:50 Snore? Yes 7:54:52 Sleep apnea? No 7:54:53 Deviated septum? No 7:54:54 Opens mouth fully? Yes 7:54:54 Sticks out tongue? Yes 7:54:56 Airway obstruction? No ? 7:54:58 Dentures? No ? 7:55:02 Pre procedure: right dorsailis pedis pulse 2+ Normal; easily identifiable; not easily obliterated 7:55:05 Patient pain scale 0/10 ?. 7:55:14 IV patent on arrival in left forearm with 0.9% NaCl at [facility]. 7:55:55 Lab Result : Creatinine 1.9 mg/dl 7:55:55 Lab Result : Hemoglobin 10 g/dl 7:56:04 Lab results completed and on chart. 7:56:07 Right groin area was prepped with chlora-prep and draped in sterile fashion 7:56:09 Alarms reviewed by R. N. 7:56:09 Sharps counted by scrub and verified by R.N. 7:56:17 Use device set Femoral Dx 7:56:18 Acist Syringe opened to sterile field. 7:56:19 Bag Decanter opened to sterile field. 7:56:19 Medline Cath Pack opened to sterile field. 7:56:19 Terumo 5Fr Chevak Sheath opened to sterile field. 7:56:20 St Armin 260cm J .035 wire opened to sterile field. 7:56:23 Acist Hand Control opened to sterile field. 7:56:23 Acist Manifold opened to sterile field. 7:56:24 Diagnostic Infinity 5Fr Multipack catheter opened to sterile field. 7:56:24 Tegaderm 4 x 4 opened to sterile field. 8:01:09 Final Timeout: patient, procedure, and site verified with staff and physician. All members of the team are in agreement. 8:01:11 Right groin site verified by team. 8:01:14 Physical assessment completed. ASA score P 2 - A patient with mild systemic disease as per Nitin Franklin MD. 8:01:17 Sedation plan: IV Moderate Sedation Versed, Fentanyl 8:03:20 Versed 1 mg I.V. was administered by Wilfredo Mace RN; for sedation; 8:03:26 Fentanyl 50 mcg I.V. was administered by Wilfredo Mace RN; for sedation; 8:03:35 Zero performed for pressure channel P1 8:04:10 Procedure started. 8:04:13 Local anesthetic to right femoral artery with Lidocaine 2% by Nitin Franklin MD.INITIAL ACCESS ONLY 8:04:47 A 5 Fr sheath was inserted into the Right Femoral artery 8:06:53 260 [place]row wire advanced. 8:07:16 Terumo Super Stiff Angled 260cm glide wire opened to sterile field. 8:07:53 Cordis 6Fr Brite Tip 35cm Sheath opened to sterile field. 8:08:40 Sheath upsized to a 6 Fr Mid-Length. 8:09:41 A Cordis 5Fr Pigtail Catheter (MP) was advanced over the wire and used for LV Angiography. unable to cross valve 8:10:08 Versed 1 mg I.V. was administered by Wilfredo Mcae RN; for sedation; 8:10:11 Fentanyl 50 mcg I.V. was administered by Wilfredo Mace RN; for sedation; 8:13:36 Catheter removed. 8:13:52 A Cordis 5Fr JL 4.0 Catheter (MP) was advanced over the wire and used for Left Coronary Angiography. unable to cannulate 8:13:54 Catheter removed. 8:14:00 A Diagnostic Infinity 5Fr JL 6 catheter was advanced over the wire and used for Left Coronary Angiography. 8:14:20 Catheter removed. 8:14:24 0.9% NaCl 250 ml I.V. bolus was administered by Wilfredo Mace RN; Per physician; 8:14:30 Heparin Bolus 4000 units I.V. was administered by Wilfredo Mace RN; for anticoagulation; verified with dr franklin 8:15:06 A Diagnostic Infinity 5Fr AR 2 MOD catheter was advanced over the wire and used for SVG Angiography.to RCA 8:16:10 Catheter removed. 8:17:18 Merit BasixCompak Inflation Kit opened to sterile field. 8:17:20 Terumo 6Fr Chevak Sheath opened to sterile field. 8:18:02 Procedure type changed to Cath procedure, Diagnostic procedure, LHC, Coronaries w/Grafts, Peripheral Cath Diagnostic Procedure, Cath Peripheral, Ewzsi-Axoaqrs-Nmy-Off, Peripheral vascular Intervention, Stent, Stent Iliac w/plasty Initial 8:18:55 Inflation number: 1 A Cordis Powerflex Pro 7.0 x 20 x 135 cm balloon was prepped and advanced across the Proximal Common Iliac, Right, then inflated to 13 CHERIE for 0:13 (min:sec). 8:19:31 Balloon removed over the wire. 8::38 Inflation Number: 2 A Cordis Isabella 7 x 18 x 135 stent was prepped and advanced across the Proximal Common Iliac, Right. The stent was deployed at 11 CHERIE for 0:08 (min:sec). 8:21:52 Stent catheter was removed intact over wire. 8:22:43 Cordis 6Fr Exoseal opened to sterile field. 8::57 Sheath upsized to a 6 Fr Short. 8:23:10 Sheath removed intact; hemostasis achieved with Exoseal to the Right Femoral artery. 8:23:12 Procedure ended.(Physican Out) 8:23:31 Fluoroscopy time 07.10 minutes. 8:23:35 Flurop Dose total: 842 8:23:35 Fluoroscopy dose: 842 mGy 8:23:39 Contrast amount:Isovue 300 125ml. 8:23:41 Sharps counted by scrub and verified by R.N. 8:23:41 Insertion/operative site no bleeding no hematoma. 8:25:28 Post-op/insertion site Right Femoral artery dressed using a 4 x 4 and Tegaderm. 8:25:33 Post right femoral artery:stable, clean and dry 8:25:35 Post Procedure Pulses reassessed and unchanged 8::38 Post-procedure physical assessment completed. ASA score P 2 - A patient with mild systemic disease as per Nitin Franklin MD. 8:25:41 Post procedure rhythm: unchanged. 8:25:43 Estimated blood loss: 10 ml 8:25:45 Post procedure instruction explained to patient.Patient verbalizes understanding. 8:25:45 Patient needs reinforcement of post procedure teaching. 8:25:51 Procedure Complication : No complications 8:25:54 See physician's report for complete and final results. 8:28:56 Procedure and supply charges have been captured, reviewed, submitted and are correct. 8::38 Vital chart was stopped 8::41 Report given to PCU. 8::44 Patient transfered to PCU with Bed. 8:31:47 Procedure ended. 8:31:47 Full Disclosure recording stopped 8:32:22 End room use (Document Last) Intervention Summary Intervention Notes Time ActionType Lesion and Equipment Action# Pressure Duration Attributes Used 8:18:55 Inflate Proximal Cordis 1 13 00:14 balloon Common Powerflex Iliac, Pro 7.0 x Right 20 x 135 cm balloon 8:21:38 Place stent Proximal Cordis 2 11 00:08 Common Isabella 7 Iliac, x 18 x Right 135 stent Device Usage Item Name Manufacture Quantity Catalog Hospital Part Current Minimal L ot# / Number Charge Number Stock Stock Serial# Code Acist Acist 1 [id number] 332668 212354 078153 20 Syringe Medical Systems Inc Bag Microtek 1 2002S [id number] 22178 651095 5 DecQPID Health Inc. Medline Cardinal 1 [id number] 406301 27775 523056 5 Cath Pack Health Terumo 5Fr Terumo 1 [id number] 237781 155625 783452 [address] St Armin 1 121505 149789 081715 819955 30 260cm J .035 wire Acist Hand Acist 1 48666 692857 074872 297302 5 10Six Medical Systems Inc Acist Acist 1 11053 569860 682403 801836 5 SOAMAI Medical Systems Inc Diagnostic Cardinal 1 DA4199 057464 86882 216019 30 Infinity Health 5Fr Multipack catheter Tegaderm 4 3M 1 1626W 396611 827752 607172 5 x 4 Terumo Terumo 1 CE9506 208180 758189 090109 5 Super Stiff Angled 260cm glide wire Cordis 6Fr Cardinal 1 [id number] 700441 298039 166838 1 Brite Tip Health 35cm Sheath Cordis 5Fr Cardinal 1 619958 5 Pigtail Health Catheter (MP) Cordis 5Fr Cardinal 1 845193 5 JL 4.0 Health Catheter (MP) Diagnostic Cardinal 1 [id number] 140962 654365 495729 5 Infinity Health 5Fr JL 6 catheter Diagnostic Cardinal 1 [id number] 621757 426327 081329 20 Infinity Health 5Fr AR 2 MOD catheter Merit Merit 1 FJ2100 589955 756732 564644 15 [employer] Medical Inflation Kit Terumo 6Fr Terumo 1 OZV174 650607 761420 019332 40 Chevak Sheath Cordis Cardinal 1 [id number] 700286 143176 089445 5 Powerflex Health Pro 7.0 x 20 x 135 cm balloon Cordis Cardinal 1 [id number] 165495 042267 5 1 [id number] Isabella 7 x Health 18 x 135 stent Cordis 6Fr Cardinal 1 EX600 408965 378405 206846 10 [facility] Signature Audit [place] Stage Time Signature Unsigned Intra-Procedure 12/23/2016 Candace 8:32:45 AM Counts RT(R) Signatures Monitor : Juan Burton RT Signature : Date : Time : [place] [id number] [place] [id number]
[2016-12-21 02:33] LABS: BASOPHILS 0.6 % (0-2); HEMATOCRIT 33.8 % (42.0-54.0); HEMOGLOBIN 9.6 g/dL (13.5-17.5); IMMATURE GRANULOCYTES 0.6 % (0-5); MCHC 28.4 g/dL (31.0-37.0); MCV 80.9 fL (80.0-100.0); MEAN PLATELET VOLUME 8.6 fL (7.4-10.4); NEUTROPHILS 53.8 % (40-80); PLATELET COUNT 178 10x3/uL (130-400); RBC 4.18 10x6/uL (4.20-6.10); RDW 20.9 % (11.5-14.5); WBC 3.4 10x3/uL (4.8-10.8)
[2016-12-21 02:45] LABS: ALBUMIN 2.8 g/dL (3.4-5.0); ALKALINE PHOSPHATASE 85 U/L (46-116); ALT (SGPT) 17 U/L (10-68); BILIRUBIN - TOTAL 0.34 mg/dL (0.2-1.3); CALC OSMOLALITY 276 mosm/kg (275-300); CALCIUM 8.3 mg/dL (8.5-10.1); CARBON DIOXIDE 26.3 mmol/L (21.0-32.0); CHLORIDE - SERUM 105 mmol/L (98-107); CREATININE - SERUM 1.3 mg/dL (0.6-1.3); GLUCOSE 129 mg/dL (74-106); POTASSIUM - SERUM 3.6 mmol/L (3.5-5.1); SODIUM 137 mmol/L (136-145); UREA NITROGEN 15 mg/dL (7-18); eGFR NON AFRICAN AMERICAN 57 mL/min (90-120)
[2016-12-21 03:03] LABS: CHOL - HDL RATIO 6.9 ratio (2.3-4.9); CHOLESTEROL, TOTAL 138 mg/dL (0-200); CKMB 2.5 U/L (0.0-3.6); CREATINE KINASE 62 UL (21-232); HDL CHOLESTEROL 20 mg/dL (32-96); LDL CHOLESTEROL 92 mg/dL (0-100); LDL-HDL RATIO 4.6 ratio (1.5-3.5); PRO BNP 2979 pg/mL (0-450); TRIGLYCERIDE 130 mg/dL (30-200)
[2016-12-21 03:04] LABS: TROPONIN-I 0.237 ng/mL (0.000-0.060)
[2016-12-21 04:00] VITALS: BP 144/63
--- NOTE | 2016-12-21 04:18 | NUR ---
REPORT CALLED FROM [facility] IN ER, PT BEING ADMITTED TO [facility] [place],IV-LAC-SL, TELEMTRY-SR, VITALS- BP144/63, T-97.7, P-89, R-20, , BED IS LOW, SRX2, CALL LIGHT IN REACH, WILL CONTINUE PLAN OF CARE
[2016-12-21 04:51] VITALS: BP 144/63; BMI 29.1
[2016-12-21 07:25] LABS: CKMB 19.5 U/L (0.0-3.6); CREATINE KINASE 167 UL (21-232)
--- NOTE | 2016-12-21 07:26 | NUR ---
RESTING QUIETLY NAD NOTED
[2016-12-21 07:28] LABS: TROPONIN-I 5.957 ng/mL (0.000-0.060)
--- NOTE | 2016-12-21 07:58 | NUR ---
ASSESSMENT COMPLETED. TELEMERTY SHOWS SR 96. 02 AT 4 L/M PER NC. LEFT AC SL. DENIES ANY DISCOMFORT. CALL LIGHT IN REACH WITH SR UP. TROPIN 5.687 WILL MONITOR
[2016-12-21 08:11] VITALS: BP 166/100
[2016-12-21 12:19] VITALS: BP 131/75
[2016-12-21 12:32] LABS: CKMB 23.7 U/L (0.0-3.6); CREATINE KINASE 163 UL (21-232)
[2016-12-21 12:34] LABS: TROPONIN-I 6.728 ng/mL (0.000-0.060)
[2016-12-21 13:57] LABS: % SATURATION 6 % (15-55); IRON 24 ug/dl (35-150); TOTAL IRON BIND CAPACITY 354 ug/dl (260-445); UNSAT IRON BIND CAPACITY 330 ug/dl (150-375)
--- NOTE | 2016-12-21 13:59 | NUR ---
16 MACEDONIAN HUIZAR CATH PLACED PER [facility]. 700 CC URINE RETURN. DENIES ANY NEEDS. CALL LIGHT IN REACH WITH SR UP
[2016-12-21 16:27] VITALS: BP 126/67
--- NOTE | 2016-12-21 20:00 | NUR ---
PT ALERT/ORIENTED AND RESTING IN BED. HUIZAR PATENT TO BEDSIDE DRAIN BAG. PIV TO LEFT A/C. PT WILL BE NPO AFTER MIDNIGHT FOR HEART CATH IN AM. O2 @ 4L/NC AND WILL DESAT QUICKLY IF HE REMOVES O2. SEE ASSESSMENT. CPOC.
[2016-12-21 20:56] VITALS: BP 100/57
[2016-12-21] MEDS ORDERED: PROSCAR5 MG PO (21:32)
[2016-12-22 00:20] VITALS: BP 93/50
[2016-12-22 05:41] LABS: BASOPHILS 0.5 % (0-2); EOSINOPHILS 3.4 % (0-7); HEMATOCRIT 35.6 % (42.0-54.0); IMMATURE GRANULOCYTES 0.5 % (0-5); LYMPHOCYTES 18.1 % (15-50); MCH 22.8 pg (26.0-34.0); MCHC 28.1 g/dL (31.0-37.0); MCV 81.1 fL (80.0-100.0); MONOCYTES 14.2 % (2-11); NEUTROPHILS 63.3 % (40-80); PLATELET COUNT 200 10x3/uL (130-400); RBC 4.39 10x6/uL (4.20-6.10); RDW 21.1 % (11.5-14.5)
[2016-12-22 06:00] LABS: WBC 4.4 10x3/uL (4.8-10.8)
[2016-12-22 06:03] LABS: ANION GAP 11.6 mmol/L (8-16); CARBON DIOXIDE 30.6 mmol/L (21.0-32.0); CREATININE - SERUM 1.4 mg/dL (0.6-1.3)
[2016-12-22 06:09] LABS: POTASSIUM - SERUM 4.2 mmol/L (3.5-5.1)
[2016-12-22 06:13] VITALS: BP 103/62
--- NOTE | 2016-12-22 08:10 | NUR ---
ASSESSMENT DONE. DENIES NEEDS.
[2016-12-22 09:15] VITALS: BP 110/60
--- NOTE | 2016-12-22 09:56 | NUR ---
AMBULATES HALLWAY WITH PT ASSIST.
[2016-12-22 12:00] VITALS: BP 97/55
[2016-12-22 13:50] VITALS: Ht 170.2 cm; Wt 76.8 kg
[2016-12-22 16:00] VITALS: BP 99/55
--- NOTE | 2016-12-22 17:45 | NUR ---
WITHOUT CHANGES OR DISTRESS NOTED AT THIS TIME. DENIES NEEDS
[2016-12-22 19:00] VITALS: BP 111/46
--- NOTE | 2016-12-22 19:20 | NUR ---
RECEIVED REPORT, WILL ASSUME CARE OF PT, PT SITTING UP ON SIDE OF BED, DENIES ANY NEEDS, BED IS LOW, SRX2, CALL LIGHT IN REACH, WILL CONTINUE PLAN OF CARE
[2016-12-23] VITALS: BP 97/45
--- NOTE | 2016-12-23 03:12 | NUR ---
RESTING IN BED WITH NO DISTRESS. RESPS EVEN/NONLABORED. CPOC.
[2016-12-23 04:00] VITALS: BP 86/44
--- NOTE | 2016-12-23 04:19 | NUR ---
ASSESSMENT COMPLETE, SEE FLOWSHEET, SLEEPING ON R.SIDE, BED IS LOW, SRX2,CALL LIGHT IN REACH, WILL CONTINUE TO MONITOR
[2016-12-23 06:06] LABS: BASOPHILS 0.3 % (0-2); EOSINOPHILS 3.4 % (0-7); IMMATURE GRANULOCYTES 0.3 % (0-5); MCHC 28.6 g/dL (31.0-37.0); MCV 80.6 fL (80.0-100.0); MEAN PLATELET VOLUME 9.6 fL (7.4-10.4); MONOCYTES 13.8 % (2-11); NEUTROPHILS 76.2 % (40-80); PLATELET COUNT 226 10x3/uL (130-400); RBC 4.34 10x6/uL (4.20-6.10); RDW 21.4 % (11.5-14.5)
[2016-12-23 06:11] LABS: WBC 5.9 10x3/uL (4.8-10.8)
[2016-12-23 06:26] LABS: ANION GAP 11.1 mmol/L (8-16); CALCIUM 8.5 mg/dL (8.5-10.1); POTASSIUM - SERUM 4.1 mmol/L (3.5-5.1)
[2016-12-23 06:30] LABS: CREATININE - SERUM 1.9 mg/dL (0.6-1.3)
--- NOTE | 2016-12-23 07:30 | NUR ---
ASSESSMENT DONE. DENIES NEEDS.
--- NOTE | 2016-12-23 07:42 | NUR ---
TO CLERICAL GRADER PER BED
[2016-12-23 08:19] LABS: FOLATE (FOLIC ACID) - SERUM 11.4 ng/mL (>3.0)
--- NOTE | 2016-12-23 08:45 | NUR ---
RETURN FROM CATH PER BED RT GROIN DRSG C/D, PULSE PALP
--- NOTE | 2016-12-23 10:08 | NUR ---
RESTS IN BED POST HEART CATH. VS STABLE.
[2016-12-23 12:04] VITALS: BP 102/54
--- NOTE | 2016-12-23 13:11 | NUR ---
RT GROIN DRSG C/D, PULSE PALP. UP TO SIDE OF BED
[2016-12-23] MEDS ORDERED: PLAVIX75 MG PO (14:30)
--- NOTE | 2016-12-23 15:17 | NUR ---
O2 SAT RESTING ON ROOM AIR 86 %. O2 REPLACED ON 3L PER NC O2 SAT 92 %. ALLISON QUIROZ NOTIFYED.
--- NOTE | 2016-12-23 15:52 | NUR ---
Patient Name: CONTRERAS SHARMA Admission Status: ER Accout number: [id number] Admission Date: 12-21-2016 : 1940 Admission Diagnosis:CHEST PAIN, UNSPECIFIED Attending: WAGNER Current LOS: 2 Anticipated DC Date:12-23-2016 Planned Disposition: Home Primary Insurance: MEDICARE A & B Discharge Planning Comments: * Is the patient Alert and Oriented? Yes 0 * How many steps to enter\exit or inside your home? 4 0 * PCP DR. DUSTIN MCALLISTER 0 * Pharmacy [facility] [address] 0 * Preadmission Environment Home with Family 0 * ADLs Independent 0 * Equipment None 0 * Other Equipment NO MEDICAL EQUIPMENT PROVIDER PREFERENCE 0 * List name and contact numbers for known caregivers / representatives who currently or will assist patient after discharge: LALO SHARMA, SPOUSE, 0 * Community resources currently utilized None 0 * Please name any agencies selected above. NONE 0 * Additional services required to return to the preadmission environment? Yes * Can the patient safely return to the preadmission environment? Yes 0 * Has this patient been hospitalized within the prior 30 days at any hospital? No 0 CM MET WITH PT IN ROOM TO DISCUSS DISCHARGE PLANNING AND NEEDS. PT REPORTS LIVING AT HOME INDEPENDENTLY WITH SPOUSE. PT HAS NO MEDICAL EQUIPMENT AND NO OUTSIDE SERVICES ASSISTING IN THE HOME. CM DISCUSSED AVAILABILITY OF HOME HEALTH, REHAB SERVICES AND MEDICAL EQUIPMENT. PT QUALIFIES FOR HOME/PORTABLE OXYGEN, PT HAS NO PREFERENCE ON PROVIDER. PT REPORTS HIS SPOUSE WILL PICK HIM UP FOR DISCHARGE HOME. IMPORTANT MESSAGE FROM MEDICARE PROVIDED AND EXPLAINED. CM CALLED [place], , SPOKE TO GALINA, PROVIDED REFERRAL INFORMATION AND FAXED REFERRAL TO [place] AT [phone]. AERANUELE TO DELIVER OXYGEN TO PT'S ROOM FOR DISCHARGE HOME AND WILL ARRANGE HOME CONCENTRATOR AFTER PT ARRIVES AT HOME THIS AFTERNOON. PT NOTIFIED AND IN AGREEMENT WITH DISCHARGE PLAN. Highway Engineering Teacher: Jules Acosta
[2016-12-23 15:59] VITALS: BP 100/51
--- NOTE | 2016-12-23 17:43 | NUR ---
DC GIVEN TO PT
--- NOTE | 2016-12-23 17:53 | NUR ---
DC HOME PER PERSONAL CAR
--- NOTE | 2016-12-24 10:28 | DS ---
PATIENT:CONTRERAS SHARMA :[birth year] MEDICAL RECORD: [id number] DISCHARGE SUMMARY ADMISSION DATE: 12/21/16 DISCHARGE DATE: 12/23/16 ADMISSION DATE: 12/21/2016 DISCHARGE DATE: 12/23/2016 ADMITTING DIAGNOSES: Chest pain, elevated troponin, elevated BNP, congestive heart failure, anemia, unknown etiology, abdominal pain, coronary artery disease, chronic kidney disease stage III. This is a patient of Dr. Mcallister, admitted with diagnoses as outlined above. Details are well-outlined in the history of the present illness, H&P. All events, lab procedures, diagnostic testing are well documented in the records. The patient was admitted. Cardiac enzymes cycled. He did bump troponin significantly, placed on PPI and scuds. Cardiology consulted, their recommendations were followed. Dr. Franklin did take him to the [facility] conservation laborer today, he did get a stent to the iliac. He had wide patency of the left main and LAD as well as vein graft to the RCA. Dr. Franklin recommends medical management of coronary artery disease and cardiac risk factors. In regards to the iliac stenting, he wants him on Plavix 75 mg a day for 30 days with 1 refill and then in this patient, beta-sonya is contraindicated due to COPD and THE PATIENT HAS AN INTOLERANCE TO STATINS, so he is not going home on a statin. FINAL DIAGNOSES: Chest pain, elevated troponin, elevated BNP, congestive heart failure, anemia, unknown etiology, abdominal pain, coronary artery disease, chronic kidney disease stage III, non-Q-wave myocardial infarction, peripheral vascular disease, coronary artery disease, chronic obstructive pulmonary disease, INTOLERANCE TO STATINS. We will have him follow up with house calls and Dr. Mcallister. Follow up with Dr. Franklin. Greater than 30 minutes was spent on this discharge. TRANSINT:[id number] Voice Confirmation ID: [id number] DOCUMENT ID: [id number] Dictated By: YESENIA ZHU RN I have interviewed/examined the above patient and agree with these documented findings. DUSTIN MCALLISTER MD at 1028 at 1613 CC: [id number] DICTATION DATE: 12/23/16 1450 REPAIR MANAGER: 12/24/16 0007 DIS IN 12/23/16 [facility] [address] [place] [address]
--- NOTE | 2016-12-26 09:41 | OP ---
PATIENT NAME: CONTRERAS SHARMA MEDICAL RECORD: [id number] :[birth year] LOCATION:D.M2 D.2123 ADMISSION DATE:12/21/16 SURGEON: STEVE CORBETT MD DATE OF OPERATION: 12/23/2016 PROCEDURES: 1. Left heart catheterization. 2. Selective coronary angiography. 3. Vein graft angiography. 4. Stent placement, right iliac. 5. EXPLOSIVE OPERATOR FUSE, right iliac. 6. Iliac angiography. INDICATION: Peripheral vascular disease, coronary artery disease, non-Q-wave myocardial infarction. PROCEDURE IN DETAIL: After informed consent was obtained and after detailed explanation of risks, benefits as well as alternative therapies, the patient elected to proceed with angiogram and angioplasty. The right femoral area was prepped and draped in normal sterile fashion. The right femoral artery was cannulated via modified Seldinger technique with placement of 6-Chadian sheath. All catheters exchanged through this sheath. FINDINGS: The right iliac had a 90% stenosis. This precluded access from catheters. This was ballooned with a 7-mm balloon. This yielded suboptimal result with severe intimal dissection. Stenting was undertaken with an 18 Cordis Isabella stent. Result was 0% residual stenosis with temple of brisk distal flow. Left ventriculogram cannot be performed secondary to inability to cross the aortic valve due to extreme tortuosity of the aorta. SELECTIVE CORONARY ANGIOGRAPHY: 1. Left main has a previously placed stent. 2. Left anterior descending is patent. There is no new disease. 3. Left circumflex is closed. This is unchanged from previous angiography. 4. Right coronary is closed. This is unchanged from previous angiography. 5. Vein graft to the right coronary is widely patent, previously placed stent in the distal right coronary after the vein graft is widely patent. The right coronary is diffusely diseased after this, but overall patent. 6. Vein graft to the circumflex is closed on previous cardiac catheterization. OVERALL IMPRESSION: Wide patency of the left main and LAD as well as vein graft to the RCA. Continue medical management of the coronary artery disease and cardiac risk factors. TRANSINT:[id number] Voice Confirmation ID: [id number] DOCUMENT ID: [id number] OPERATIVE REPORT [id number] CONTRERAS SHARMA STEVE CORBETT MD at 0941 CC: [id number] DICTATION DATE: 12/23/16 0832 NETWORK OPERATIONS MANAGER: 12/23/16 1034 DIS IN 12/23/16 [facility] [address] [facility] [place] [address]
== END 2016-12-23 17:53 | disposition home or self-care (01) | DRG 253 ==
LOC: D.ER 02:03 → D.M2 03:43
PROVIDERS: Emergency Medicine; Internal Medicine Interventional Cardiology; ADMIT Family Medicine
PROC: 4A023N7 Measurement of Cardiac Sampling and Pressure, Left Heart, Percutaneous Approach (ICD-10-PCS; 2016-12-23)
PROC: B2121ZZ Fluoroscopy of Single Coronary Artery Bypass Graft using Low Osmolar Contrast (ICD-10-PCS; 2016-12-23)
PROC: B2111ZZ Fluoroscopy of Multiple Coronary Arteries using Low Osmolar Contrast (ICD-10-PCS; principal; 2016-12-23 09:30)
PROC: 047C3DZ Dilation of Right Common Iliac Artery with Intraluminal Device, Percutaneous Approach (ICD-10-PCS; 2016-12-23 09:30)
DX: I21.4 Non-ST elevation (NSTEMI) myocardial infarction (principal); I13.0 Hypertensive heart and chronic kidney disease with heart failure and stage 1 through stage 4 chronic kidney disease, or unspecified chronic kidney disease; I50.22 Chronic systolic (congestive) heart failure; I25.10 Atherosclerotic heart disease of native coronary artery without angina pectoris; R10.9 Unspecified abdominal pain; Z95.1 Presence of aortocoronary bypass graft; N18.3 Chronic kidney disease, stage 3 (moderate); D64.9 Anemia, unspecified; Z87.891 Personal history of nicotine dependence; I70.201 Unspecified atherosclerosis of native arteries of extremities, right leg; J44.9 Chronic obstructive pulmonary disease, unspecified

== ENCOUNTER 2016-12-25 05:11 | Emergency (ER) | payer MEDICARE, OTHER ==
[2016-12-22 13:50] VITALS: BMI 28.3
[~2016-12-25 05:11] MED LIST changes: +PROSCAR5 MG PO
[2016-12-25 06:47] LABS: APPEARANCE CLEAR (CLEAR); BACTERIA FEW /hpf (NONE SEEN); BILIRUBIN NEGATIVE (NEGATIVE); COLOR YELLOW (YELLOW); EPITHELIAL CELLS RARE /hpf (0-5); GLUCOSE NEGATIVE (NEGATIVE); KETONE NEGATIVE (NEGATIVE); LEUKOCYTE ESTERASE TRACE (NEGATIVE); NITRITE NEGATIVE (NEGATIVE); PROTEIN TRACE mg/dL (NEGATIVE); RED CELLS - URINE RARE /hpf (0-5); SPECIFIC GRAVITY 1.015 (1.005-1.020); UROBILINOGEN NORMAL (NORMAL); WHITE CELLS - URINE OCC /hpf (0-5)
== END 2016-12-25 06:35 | disposition home or self-care (01) ==
LOC: D.ER 05:11
PROVIDERS: Emergency Medicine
DX: R33.9 Retention of urine, unspecified (principal); R10.9 Unspecified abdominal pain

== ENCOUNTER 2016-12-29 12:24 | Emergency (ER) | payer MEDICARE ==
[2016-12-22 13:50] VITALS: BMI 28.3
[2016-12-29 18:21] LABS: APPEARANCE HAZY (CLEAR); COLOR RED (YELLOW)
[2016-12-29 18:23] LABS: BILIRUBIN NEGATIVE (NEGATIVE); GLUCOSE NEGATIVE (NEGATIVE); KETONE NEGATIVE (NEGATIVE); LEUKOCYTE ESTERASE TRACE (NEGATIVE); NITRITE NEGATIVE (NEGATIVE); PROTEIN 1+ mg/dL (NEGATIVE); UROBILINOGEN NORMAL (NORMAL)
[2016-12-29 18:24] LABS: BACTERIA FEW /hpf (NONE SEEN); RED CELLS - URINE >50 /hpf (0-5); WHITE CELLS - URINE 0-5 /hpf (0-5)
[2016-12-29 18:38] LABS: BASOPHILS 0.4 % (0-2); EOSINOPHILS 3.8 % (0-7); HEMOGLOBIN 11.1 g/dL (13.5-17.5); IMMATURE GRANULOCYTES 0.4 % (0-5); LYMPHOCYTES 16.8 % (15-50); MCH 23.4 pg (26.0-34.0); MCHC 28.5 g/dL (31.0-37.0); MCV 82.3 fL (80.0-100.0); MEAN PLATELET VOLUME 9.1 fL (7.4-10.4); MONOCYTES 12.8 % (2-11); NEUTROPHILS 65.8 % (40-80); RBC 4.74 10x6/uL (4.20-6.10); RDW 21.5 % (11.5-14.5); WBC 4.5 10x3/uL (4.8-10.8)
[2016-12-29 18:44] LABS: PLATELET COUNT 306 10x3/uL (130-400)
== END 2016-12-29 19:06 | disposition home or self-care (01) ==
LOC: D.ER 12:24
PROVIDERS: Emergency Medicine; Physician Assistant
DX: R33.9 Retention of urine, unspecified (principal); R31.9 Hematuria, unspecified

== ENCOUNTER 2017-09-23 08:36 | Outpatient (CLI) | payer MEDICARE, OTHER ==
[~2017-09-23] VITALS: Ht 170.2 cm; Wt 79.5 kg
--- NOTE | ~2017-09-23 | OP ---
PATIENT NAME: CONTRERAS SHARMA MEDICAL RECORD: [id number] :38 LOCATION:D.CAT ADMISSION DATE: SURGEON: STEVE CORBETT MD DATE OF OPERATION: 09/23/2017 PROCEDURES: 1. Abdominal aortography. 2. Aortofemoral runoff. INDICATION: Claudication and peripheral vascular disease. PROCEDURE IN DETAIL: After informed consent was obtained and after detailed explanation of risks and benefits as well as alternative therapies, the patient elected to proceed with angiogram and angioplasty. The left femoral area is prepped and draped in normal sterile fashion. Left femoral artery was cannulated via modified Seldinger technique with placement of 5-Nepali sheath. All catheters exchanged through this sheath. FINDINGS: Abdominal aortography was performed. The catheter was pulled down for aortofemoral runoff. Abdominal aortography reveals a very tortuous abdominal aorta, but no significant disease or stenosis. No dissection or aneurysmal formation. RIGHT LEG: A. Iliac: The common iliac has previously placed stent. This is widely patent with no significant restenosis. The internal and external iliacs are very tortuous, calcified, but no significant stenosis. B. Femoral system: The common superficial and deep femoral have moderate irregularities, but no flow-limiting stenosis. C. Popliteal and infrapopliteal vessels are patent with 3-vessel runoff to the foot, although diffusely diseased. LEFT LEG: A. Iliac: The common internal and external iliacs are very tortuous, calcified, but no flow-limiting stenosis. B. Femoral system: The common superficial and deep femoral have moderate irregularities, but no flow-limiting stenosis. C. Popliteal and infrapopliteal vessels are patent giving 3-vessel runoff to the foot, although diffusely diseased. OVERALL IMPRESSION: Wide patency of the previously placed stent in the right iliac, no significant disease elsewise. Continue medical management of the peripheral vascular disease and peripheral risk factors. TRANSINT:[id number] Voice Confirmation ID: [id number] DOCUMENT ID: [id number] STEVE CORBETT MD at 1444 CC: [id number] DICTATION DATE: 09/23/17 1045 DEBURRING MACHINE OPERATOR: 09/23/17 1345 DEP CLI 09/23/17 [place] [address]
--- NOTE | ~2017-09-23 | HEMODYNAMI ---
PATIENT:CONTRERAS SHARMA MEDICAL RECORD: [id number] : 38 LOCATION:[facility]CAT ADMISSION DATE: 09/23/17 Generatedon:09/23/201710:48 Patient name: CONTRERAS SHARMA Patient #: [id number] SSN: : 1940 Date of study: 09/23/2017 Page: Of Hemodynamic Procedure Report Patient Data Patient Demographics Procedure consent was obtained First Name: CONTRERAS Gender: Male Last Name: ZACHARY : 1940 [facility] Initial: E Age: 77 year(s) Patient #: [id number] Race: Additional ID: [id number] Contact details [address]: [address] [place] [address] [address] State: [place] City: [place] Zip code: [address] Past Medical History Allergies Allergen Reaction Date Comments Reported Other allergy 12/10/2015 Sulfa, SUNDAR Inhibitors, Amlodipine Other allergy 10/14/2016 Sulfa Sulfa drugs 12/23/2016 Other allergy 09/23/2017 sulfa Admission Admission Data Admission Date: 09/23/2017 Admission Time: 8:36 Lab Results Lab Result Date: 09/23/2017 Lab Result Time: 9:10 Biochemistry Name Units Result Min Max BUN mg/dl 13 --(--*-)-- 7 18 Creatinine mg/dl 1.5 --(----)-* 0.6 1.3 CBC Name Units Result Min Max Hematocrit % 43 --(*---)-- 42 54 Hemoglobin g/dl 12.9 -*(----)-- 13.5 17.5 Procedure Procedure Types Cath Procedure Peripheral Cath Diagnostic Procedure Cath Peripheral Tcjqk-Juorowz-Qch-Off Procedure Description Procedure Date Procedure Date: 09/23/2017 Procedure Start Time: 10:37 Procedure End Time: 10:44 Procedure Staff Name Function Nitin Franklin MD Performing Physician Luca Nuñez RT Monitor Wilfredo Mace RN Nurse Candace Davenport RT Scrub Procedure Data Cath Procedure Fluoroscopy Diagnostic fluoroscopy Total fluoroscopy Time: 0.8 time: 0.8 min min Diagnostic fluoroscopy Total fluoroscopy dose: 128 dose: 128 mGy mGy Contrast Material Contrast Material Type Amount (ml) Isovue 370 51 Entry Location Entry Primary Successful Side Size Upsize Upsize Entry Closure Succes sful Closure Location (Fr) 1 (Fr) 2 (Fr) Remarks Device Remarks Femoral Left 5 Fr Exoseal artery Estimated blood loss: 5 ml Diagnostic catheters Device Type Used For End Catheter Placement DIAGNOSTIC UF 5Fr Procedure catheter ([id number]) Procedure Complications No complications Procedure Medications Medication Administration Route Dosage Oxygen NC 2 l/min Lidocaine 2% added to field 20 Heparin Flush Bag added to field 2 bags (1000units/500ml NS) 0.9% NaCl I.V. 100 ml/hr Versed I.V. 1 mg Fentanyl I.V. 50 mcg Versed I.V. 1 mg Fentanyl I.V. 50 mcg Versed I.V. 1 mg Fentanyl I.V. 25 mcg Versed I.V. 1 mg Hemodynamics Rest HGB: 12.9 (g/dl) Heart Rate: 82 (bpm) Snapshots Pre Cath Intra NCS Post Cath Vital Signs Time Heart Resp SPO2 etCO2 NIBP (mmHg) Rhythm Pain Sedation Rate (ipm) (%) (mmHg) Status Level (bpm) 10:24:06 80 29 96 0 182/112(159) NSR 0 (11) 10(A) , No pain 10:29:03 82 21 93 0 183/98(148) NSR 0 (11) 10(A) , No pain 10:33:54 86 22 92 0 164/95(125) NSR 0 (11) 10(A) , No pain 10:38:47 84 24 92 0 159/96(117) NSR 0 (11) 10(A) , No pain 10:43:34 86 20 93 0 146/84(114) NSR 0 (11) 9(A) , No pain 10:48:04 84 24 92 0 148/89(123) NSR 0 (11) 10(A) , No pain Medications Time Medication Route Dose Verified Delivered Reason Notes Effe ctiveness by by 10:22:23 Heparin Flush added 2 Nitin Taveras used for Bag to bags Rigoberto Franklin MD procedure (1000units/500ml field NS) 10:22:27 Oxygen NC 2 Nitin Villalobos used for l/min Rigoberto Mace RN procedure 10:22:32 0.9% NaCl I.V. 100 Nitin Villalobos Per ml/hr Rigoberto Mace RN physician 10:22:36 Lidocaine 2% added 20ml Nitin Taveras for local to vial Rigoberto Franklin MD anesthetic field 10:33:18 Versed I.V. 1 mg Nitin Villalobos for Rigoberto Mace RN sedation 10:33:24 Fentanyl I.V. 50 Nitin Yeie for mcg Rigoberto Mace RN sedation 10:36:07 Versed I.V. 1 mg Nitin Yeie for Rigoberto Mace RN sedation 10:36:10 Fentanyl I.V. 50 Nitin Yeie for mcg Rigoberto Mace RN sedation 10:39:19 Versed I.V. 1 mg Nitin Yeie for Rigoberto Mace RN sedation 10:39:24 Fentanyl I.V. 25 Nitin Yeie for mcg Rigoberto Mace RN sedation 10:42:30 Versed I.V. 1 mg Nitin Yeie for Rigoberto Mace RN sedation Procedure Log Time Note 9:49:04 Time tracking: Regular hours (M-F 7:00 - 5:00) 9:49:08 Plan of Care:Hemodynamics will remain stable., Cardiac rhythm will remain stable., Comfort level will be maintained., Respiratory function will remain adequate., Patient/ family verbilizes understanding of procedure., Procedure tolerated without complication., Recovers from procedure without complications.. 9:58:03 Procedure type changed to Cath procedure, Peripheral Cath Diagnostic Procedure, Cath Peripheral, Gtqdm-Hpteamk-Atv-Off 10:08:04 Wilfredo Mace RN sent for patient. Start room use. 10:14:30 Lab Result : BUN 13 mg/dl 10:14:30 Lab Result : Creatinine 1.5 mg/dl 10:14:30 Lab Result : Hematocrit 43 % 10:14:30 Lab Result : Hemoglobin 12.9 g/dl 10:14:33 Lab results completed and on chart. 10:14:46 H&P Date Dictated: 09/21/2017 Within 30 days and on chart., H&P Addendum completed by physician on day of procedure. (MUST COMPLETE FOR ALL OUTPATIENTS). 10:17:07 Patient received from Pre/Post Procedure Room to CCL 1 Alert and oriented. Tansferred to table in Supine position. 10:17:08 Warm blankets applied, and nette hugger turned on for patient comfort. 10:17:08 Correct patient and procedure confirmed by team. 10:17: Signed procedure consent form obtained from patient. 10:17:11 ECG and BP/O2 sat monitors applied to patient. 10:17:12 Pre-procedure instructions explained to patient. 10:17:13 Pre-op teaching completed and patient verbalized understanding. 10:17:14 Family in waiting room. 10:17:15 Patient NPO since Midnight. 10:17:34 Patient allergic to Other allergysulfa 10:22:23 Heparin Flush Bag (1000units/500ml NS) 2 bags added to field was administered by Nitin Franklin MD; used for procedure; 10::27 Oxygen 2 l/min NC was administered by Wilfredo Mace RN; used for procedure; 10:22:32 0.9% NaCl 100 ml/hr I.V. was administered by Wilfredo Mace RN; Per physician; 10::36 Lidocaine 2% 20ml vial added to field was administered by Nitin Franklin MD; for local anesthetic; 10:23:03 Vital chart was started 10:29:35 Baseline sample Acquired. 10:29:40 Rhythm: sinus rhythm 10:29:41 Full Disclosure recording started 10:29:44 Is the patient allergic to Iodine/contrast media? No. 10:29:46 Is patient on blood thinner?No 10:29:48 Patient diabetic? No. 10:29:51 Previous problem with sedation/anesthesia? No ? 10:29:54 Snore? No 10:29:55 Sleep apnea? No 10:29:56 Deviated septum? No 10:29:56 Opens mouth fully? Yes 10:29:57 Sticks out tongue? Yes 10:30:00 Airway obstruction? Yes copd 10:30:04 Dentures? Yes in tight 10:30:09 Pre procedure: right dorsailis pedis pulse Doppler 10:30:11 Pre procedure: left dorsailis pedis pulse Doppler 10:30:13 Patient pain scale 0/10 ?. 10:30:19 IV patent on arrival in right antecubital with 0.9% NaCl at [facility]. 10:30:23 Bilateral groins area was prepped with chlora-prep and draped in sterile fashion 10:30:24 Alarms reviewed by R. N. 10:30:24 Sharps counted by scrub and verified by R.N. 10:30:46 ACIST Syringe (38632) opened to sterile field. 10:30:46 Bag Decanter (2001S) opened to sterile field. 10:30:48 Tegaderm 4 x 4 (1626W) opened to sterile field. 10:30:50 ACIST Hand Control (65535) opened to sterile field. 10:30:50 ACIST Manifold (27600) opened to sterile field. 10:31:07 Medline Cath Pack ([id number]) opened to sterile field. 10:31:11 DIAGNOSTIC WIRE .035 260cm J wire (606312) opened to sterile field. 10:31:17 SHEATH Prelude 5Fr 0.035 ([id number]-21-035) opened to sterile field. 10:31:43 Physician arrived 10::44 --------ALL STOP TIME OUT------ 10::44 Final Timeout: patient, procedure, and site verified with staff and physician. All members of the team are in agreement. 10:31:46 Bilateral groins site verified by team. 10:31:49 Physical assessment completed. ASA score P 2 - A patient with mild systemic disease as per Nitin Franklin MD. 10:31:52 Sedation plan: IV Moderate Sedation Medication:Versed, Fentanyl 10:33:18 Versed 1 mg I.V. was administered by Wilfredo Mace RN; for sedation; 10:33:24 Fentanyl 50 mcg I.V. was administered by Wilfredo Mace RN; for sedation; 10:36:03 Zero performed for pressure channel P1 10:36:07 Versed 1 mg I.V. was administered by Wilfredo Mace RN; for sedation; 10:36:10 Fentanyl 50 mcg I.V. was administered by Wilfredo Mace RN; for sedation; 10:37:27 Procedure started. 10:37:30 Local anesthetic to left femerol artery with Lidocaine 2% by Nitin Franklin MD.INITIAL ACCESS ONLY 10:38:05 A 5 Fr sheath was inserted into the Left Femoral artery 10:38:27 A DIAGNOSTIC UF 5Fr catheter ([id number]) was advanced over the wire and used for Procedure. 10:39:19 Versed 1 mg I.V. was administered by Wilfredo Mace RN; for sedation; 10:39:24 Fentanyl 25 mcg I.V. was administered by Wilfredo Mace RN; for sedation; 10:39:37 Abdominal angiogram w/ runoff was performed. 10:39:55 Left leg runoff performed. 10:40:04 Right leg runoff performed. 10:41:52 Catheter removed. 10:42:24 EXOSEAL 5Fr (EX500) opened to sterile field. 10:42:30 Versed 1 mg I.V. was administered by Wilfredo Mace RN; for sedation; 10:42:34 Sheath removed intact; hemostasis achieved with Exoseal to the Left Femoral artery. 10:43:11 Procedure ended.(Physican Out) 10:43:22 Fluoroscopy time 00.80 minutes. 10:43:26 Fluoroscopy dose: 128 mGy 10:43:26 Flurop Dose total: 128 10:43:30 Contrast amount:Isovue 370 51ml. 10:43:35 Sharps counted by scrub and verified by R.N. 10:43:36 Insertion/operative site no bleeding no hematoma. 10:43:39 Post-op/insertion site Left Femoral artery dressed using a 4 x 4 and Tegaderm. 10:43:43 Post left femerol artery:stable, soft, clean and dry 10:43:44 Post Procedure Pulses reassessed and unchanged 10:43:47 Post-procedure physical assessment completed. ASA score P 2 - A patient with mild systemic disease as per Nitin Franklin MD. 10:43:49 Post procedure rhythm: unchanged. 10:43:51 Estimated blood loss: 5 ml 10:43:53 Post procedure instruction explained to patient.Patient verbalizes understanding. 10:43:53 Patient needs reinforcement of post procedure teaching. 10:44:14 Procedure and supply charges have been captured, reviewed, submitted and are correct. 10:44:16 Procedure Complication : No complications 10:44:18 Vital chart was stopped 10:44:18 See physician's report for complete and final results. 10:44:20 Report given to Pre/Post Procedure Room. 10:44:22 Patient transfered to Pre/Post Procedure Room with Stretcher. 10:44:29 Procedure ended. 10:44:29 Full Disclosure recording stopped 10:44:35 End room use (Document Last) Device Usage Item Name Manufacture Quantity Catalog Number Hospital Part Current M inimal Lot# / Charge Number Stock Stock Serial# Code ACIST Syringe Acist 1 05342 235989 302338 600289 2 0 (96394) [employer] Bag Decanter Microtek 1 2001S [id number] 02024 466001 5 (2001S) Medical Inc. Tegaderm 4 x 4 3M 1 1626W 877497 479465 494196 5 (1626W) ACIST Hand Acist 1 96201 048256 951300 577945 5 Control (37432) [employer] ACIST Manifold Acist 1 86876 442752 718434 344451 5 (41354) [employer] Medline Cath Cardinal 1 [id number] 873479 67341 399121 5 Pack Health ([id number]) DIAGNOSTIC WIRE [facility] [place] 1 606750 657659 297075 382278 3 0 .035 260cm J wire (403908) SHEATH Prelude Merit 1 [id number] 055244 791649 930202 5 5Fr 0.035 Medical ([id number]-[id number]) DIAGNOSTIC UF Cardinal 1 [id number] 884536 641872 951570 1 0 5Fr catheter Health ([id number]) EXOSEAL 5Fr Cardinal 1 EX500 263425 113630 956954 1 0 (EX500) Health Signature Audit Thompson Stage Time Signature Unsigned Intra-Procedure 09/23/2017 Luca Nuñez 10:48:42 AM RT(R) Signatures Monitor : Luca Nuñez RT Signature : Date : Time : [facility] [address] [place] [address]
[2017-09-23] MEDS ORDERED: OMEPRAZOLE40 MG PO (08:53)
[2017-09-23 09:01] VITALS: BP 171/107; Ht 170.2 cm; Wt 79.5 kg
[2017-09-23 09:29] LABS: BASOPHILS 0.4 % (0-2); EOSINOPHILS 1.9 % (0-7); HEMOGLOBIN 12.9 g/dL (13.5-17.5); IMMATURE GRANULOCYTES 0.4 % (0-5); LYMPHOCYTES 14.3 % (15-50); MCH 25.6 pg (26.0-34.0); MCV 85.3 fL (80.0-100.0); MEAN PLATELET VOLUME 9.3 fL (7.4-10.4); MONOCYTES 11.5 % (2-11); NEUTROPHILS 71.5 % (40-80); RBC 5.04 10x6/uL (4.20-6.10); RDW 18.8 % (11.5-14.5); WBC 4.6 10x3/uL (4.8-10.8)
[2017-09-23 09:34] LABS: PLATELET COUNT 216 10x3/uL (130-400)
[2017-09-23 09:46] LABS: CALCIUM 9.3 mg/dL (8.5-10.1); CARBON DIOXIDE 24.8 mmol/L (21.0-32.0); CREATININE - SERUM 1.5 mg/dL (0.6-1.3); POTASSIUM - SERUM 3.8 mmol/L (3.5-5.1)
== END 2017-09-23 13:00 | disposition home or self-care (01) ==
LOC: D.CATH 08:36
PROVIDERS: Internal Medicine Interventional Cardiology
DX: I25.10 Atherosclerotic heart disease of native coronary artery without angina pectoris (principal); I10 Essential (primary) hypertension; I70.219 Atherosclerosis of native arteries of extremities with intermittent claudication, unspecified extremity; Z01.812 Encounter for preprocedural laboratory examination

== ENCOUNTER 2017-10-21 09:43 | Outpatient (CLI) | payer MEDICARE, OTHER ==
[~2017-10-21] VITALS: Ht 170.2 cm; Wt 81.6 kg
[2017-10-21] VITALS (8 sets, daily range): BP systolic 148–179; BP diastolic 70–114; Ht 170.2 cm; Wt 81.6 kg
--- NOTE | ~2017-10-21 | HEMODYNAMI ---
PATIENT:CONTRERAS SHARMA MEDICAL RECORD: [id number] : 38 LOCATION:[facility] ADMISSION DATE: 10/21/17 Generatedon:10/21/201716:10 Patient name: CONTRERAS SHARMA Patient #: [id number] SSN: : 1940 Date of study: 10/21/2017 Page: Of Hemodynamic Procedure Report Patient Data Patient Demographics Procedure consent was obtained First Name: CONTRERAS Gender: Male Last Name: ZACHARY : 1940 Middle Initial: E Age: 77 year(s) Patient #: [id number] Race: Additional ID: [id number] Contact details [address]: [address] [place] [address] [address] State: [place] City: [place] Zip code: [address] Past Medical History Allergies Allergen Reaction Date Comments Reported Other allergy 12/10/2015 Sulfa, SUNDAR Inhibitors, Amlodipine Other allergy 10/14/2016 Sulfa Sulfa drugs 12/23/2016 Other allergy 09/23/2017 sulfa Sulfa drugs 10/21/2017 Admission Admission Data Admission Date: 10/21/2017 Admission Time: 9:43 Admit Source: Emergency department Room #: D.E14 Lab Results Lab Result Date: 10/21/2017 Lab Result Time: 0:00 Biochemistry Name Units Result Min Max BUN mg/dl 13 --(--*-)-- 7 18 Creatinine mg/dl 1.5 --(----)-* 0.6 1.3 CBC Name Units Result Min Max Hemoglobin g/dl 12.3 *-(----)-- 13.5 17.5 Procedure Procedure Types Cath Procedure Diagnostic Procedure LHC LHC w/Coronaries w/Grafts Procedure Description Procedure Date Procedure Date: 10/21/2017 Procedure Start Time: 15:53 Procedure End Time: 16:08 Procedure Staff Name Function Nitin Franklin MD Performing Physician Aleksandra Sullivan RT Scrub Wilfredo Mace RN Monitor Leah Fischer RT Monitor Procedure Data Cath Procedure Fluoroscopy Diagnostic fluoroscopy Total fluoroscopy Time: 4.6 time: 4.6 min min Diagnostic fluoroscopy Total fluoroscopy dose: dose: 1116 mGy 1116 mGy Contrast Material Contrast Material Type Amount (ml) Isovue 300 89 Entry Location Entry Primary Successful Side Size Upsize Upsize Entry Closure Cisse ccessful Closure Location (Fr) 1 (Fr) 2 (Fr) Remarks Device Remarks Radial Right 6 Fr Mechanical artery Short Compression Estimated blood loss: 5 ml Diagnostic catheters Device Type Used For End Catheter Placement DIAGNOSTIC Pigtail 5Fr LV Angiography catheter ([id number]) DIAGNOSTIC AL 2 5Fr SVG Angiography catheter ([id number]) Procedure Complications No complications Procedure Medications Medication Administration Route Dosage Oxygen NC 2 l/min Heparin Flush Bag added to field 2 bags (1000units/500ml NS) 0.9% NaCl I.V. 100 ml/hr Radial Cocktail added to field 1 syringe (Verapomil 2mg/Nitro 400mcg/Heparin 1500units) Versed I.V. 1 mg Fentanyl I.V. 50 mcg Versed I.V. 1 mg Fentanyl I.V. 50 mcg Hemodynamics Rest HGB: 12.3 (g/dl) Heart Rate: 76 (bpm) Pressure Samples Time Site Value (mmHg) Purpose Heart Use Rate(bpm) 15:58 LV 87/15,20 Snapshot 85 Snapshots Pre Cath Intra NCS Post Cath Vital Signs Time Heart Resp SPO2 etCO2 NIBP (mmHg) Rhythm Pain Sedation Rate (ipm) (%) (mmHg) Status Level (bpm) 15:33:37 75 10 96 0 Measuring NSR 0 (11) 10(A) , No pain 15:34:22 78 20 96 0 177/108(139) NSR 0 (11) 10(A) , No pain 15:39:19 68 20 97 0 180/88(145) NSR 0 (11) 10(A) , No pain 15:44:12 75 16 95 0 176/87(143) NSR 0 (11) 10(A) , No pain 15:49:07 74 25 94 0 172/92(136) NSR 0 (11) 10(A) , No pain 15:53:49 85 26 93 0 144/100(123) NSR 0 (11) 10(A) , No pain 15:58:34 80 17 93 0 121/70(94) NSR 0 (11) 9(A) , No pain 16:03:58 80 20 94 0 151/87(126) NSR 0 (11) 10(A) , No pain 16:09:42 90 26 94 0 145/79(119) NSR 0 (11) 10(A) , No pain Medications Time Medication Route Dose Verified Delivered Reason Notes Eff ectiveness by by 15:35:48 Oxygen NC 2 l/min Nitin Isaac Per Rigoberto Yadav RN physician 15:35:56 Heparin Flush added 2 bags Nitin Isaac used for Bag to Rigoberto Yadav RN procedure (1000units/500ml field NS) 15:36:06 0.9% NaCl I.V. 100 Nitin Isaac Per ml/hr Rigoberto Yadav RN physician 15:36:15 Radial Cocktail added 1 Nitin Isaac used for (Verapomil to syringe Rigoberto Yadav RN procedure 2mg/Nitro field 400mcg/Heparin 1500units) 15:50:38 Fentanyl I.V. 50 mcg Nitin Villalobos for Rigoberto Mace RN sedation 15:51:39 Versed I.V. 1 mg Nitin Villalobos for Rigoberto Mace RN sedation 15:55:39 Versed I.V. 1 mg Nitin Villalobos for Rigoberto Mace RN sedation 15:55:43 Fentanyl I.V. 50 mcg Nitin Villalobos for Rigoberto Mace RN sedation Procedure Log Time Note 15:15:54 Informed consent obtained and on chart 15:15:57 Admit Source: Emergency department 15:16:18 Diagnostic Cath status Elective 15:16:19 Time tracking: Regular hours (M-F 7:00 - 5:00) 15:16:24 Plan of Care:Hemodynamics will remain stable., Cardiac rhythm will remain stable., Comfort level will be maintained., Respiratory function will remain adequate., Patient/ family verbilizes understanding of procedure., Procedure tolerated without complication., Recovers from procedure without complications.. 15:16:42 H&P Date Dictated: 10/21/2017 New H&P dictated by physician.. 15:16:45 Chinmay Rubi RN sent for patient. Start room use. 15:25:32 Patient received from ED to CCL 1 Alert and oriented. Tansferred to table in Supine position. 15:25:34 Warm blankets applied, and nette hugger turned on for patient comfort. 15:25:35 Correct patient and procedure confirmed by team. 15:25:35 ECG and BP/O2 sat monitors applied to patient. 15:25:36 Pre-procedure instructions explained to patient. 15:25:37 Pre-op teaching completed and patient verbalized understanding. 15:25:39 Family in waiting room. 15:25:43 Patient NPO since Breakfast. 15:32:27 Vital chart was started 15:32:33 Baseline sample Acquired. 15::38 Rhythm: sinus rhythm 15::39 Full Disclosure recording started 15:32:46 Patient allergic to Sulfa drugs 15:32:48 Is the patient allergic to Iodine/contrast media? No. 15:32:49 Is patient on blood thinner?Yes 15:32:57 PRE LOADED ON PLAVIX 15:33:00 Patient diabetic? No. 15:33:27 Previous problem with sedation/anesthesia? No ? 15:33:28 Snore? Yes 15:33:29 Sleep apnea? No 15:33:31 Deviated septum? No 15:33:31 Opens mouth fully? Yes 15:33:32 Sticks out tongue? Yes 15:33:38 Airway obstruction? Yes COPD 15:33:46 Dentures? Yes IN 15:33:49 Modified Chidi's test Ulnar < 7 seconds 15:33:51 Patient pain scale 0/10 ?. 15:33:55 IV patent on arrival in left antecubital with 0.9% NaCl at [facility]. 15:34:59 Lab Result : BUN 13 mg/dl 15:34:59 Lab Result : Hemoglobin 12.3 g/dl 15:34:59 Lab Result : Creatinine 1.5 mg/dl 15:35:03 Lab results completed and on chart. 15:35:06 Right Radial & Right Groin area was prepped with chlora-prep and draped in sterile fashion 15:35:07 Alarms reviewed by R. N. 15:35:07 Sharps counted by scrub and verified by R.N. 15:35:48 Oxygen 2 l/min NC was administered by Poncho Yadav RN; Per physician; 15:35:56 Heparin Flush Bag (1000units/500ml NS) 2 bags added to field was administered by Poncho Yadav RN; used for procedure; 15:36:06 0.9% NaCl 100 ml/hr I.V. was administered by Poncho Yadav RN; Per physician; 15:36:15 Radial Cocktail (Verapomil 2mg/Nitro 400mcg/Heparin 1500units) 1 syringe added to field was administered by Poncho Yadav RN; used for procedure; 15:39:15 Use device set Radial Dx or PCI 15:39:16 ACIST Syringe (20586) opened to sterile field. 15:39:17 Tegaderm 4 x 4 (1626W) opened to sterile field. 15:39:18 ACIST Manifold (60633) opened to sterile field. 15:39:18 ACIST Hand Control (82938) opened to sterile field. 15:39:21 Medline Cath Pack ([id number]) opened to sterile field. 15:39:23 Bag Decanter (2002) opened to sterile field. 15:39:24 DIAGNOSTIC WIRE .035 260cm J wire (574655) opened to sterile field. 15:39:24 MBrace Wrist Support ([id number]) opened to sterile field. 15:39:26 SHEATH 6Fr Prelude Radial ([id number]) opened to sterile field. 15:41:33 Zero performed for pressure channel P1 15:46:10 Zero performed for pressure channel P1 15:50:38 Fentanyl 50 mcg I.V. was administered by Wilfredo Mace RN; for sedation; 15:51:35 Physician arrived 15:51:35 --------ALL STOP TIME OUT------ 15:51:36 Final Timeout: patient, procedure, and site verified with staff and physician. All members of the team are in agreement. 15:51:39 Versed 1 mg I.V. was administered by Wilfredo Mace RN; for sedation; 15:51:39 Right Radial & Right Groin site verified by team. 15:51:44 Physical assessment completed. ASA score P 2 - A patient with mild systemic disease as per Nitin Franklin MD. 15:51:46 Sedation plan: IV Moderate Sedation Medication:Versed, Fentanyl 15:51:53 Procedure started. 15:53:21 Local anesthetic to right radial artery with Lidocaine 2% by Nitin Franklin MD.INITIAL ACCESS ONLY 15:53:32 A 6 Fr Short sheath was inserted into the Right Radial artery 15:54:37 A DIAGNOSTIC Pigtail 5Fr catheter ([id number]) was advanced over the wire and used for LV Angiography. 15:55:39 Versed 1 mg I.V. was administered by Wilfredo Mace RN; for sedation; 15:55:43 Fentanyl 50 mcg I.V. was administered by Wilfredo Mace RN; for sedation; 15:56:46 GLIDE WIRE Super Stiff Angled 260cm (AE6671) opened to sterile field. 15:58:59 LV hemodynamics recorded. 15:59:00 LV gram done using BOOGIE 15:59:03 Injector settings: Ml/sec: 5, Volume: 15, 15:59:11 EF : 60 % 15:59:17 Catheter removed. 15:59:31 GUIDE 6FR EBU 4.0 guide catheter ([id number]) opened to sterile field. 16:00:40 LCA angiography performed. 16:00:42 Injector settings: Ml/sec: 3, Volume: 6, 16:02:26 Catheter removed. 16:02:44 A DIAGNOSTIC AL 2 5Fr catheter ([id number]) was advanced over the wire and used for SVG Angiography. 16:05:05 SVG to RCA angiography performed. 16:05:23 Catheter removed. 16:06:06 TR BAND Standard ([id number]) opened to sterile field. 16:06:17 Sheath removed intact; hemostasis achieved with Mechanical Compression to the Right Radial artery. 16:06:23 Procedure ended.(Physican Out) 16:06:29 Fluoroscopy time 04.60 minutes. 16:06:35 Flurop Dose total: 1116 16:06:35 Fluoroscopy dose: 1116 mGy 16:06:38 Contrast amount:Isovue 300 89ml. 16:06:40 Sharps counted by scrub and verified by R.N. 16:06:44 TR band inflated with 10cc of air. 16:06:48 Insertion/operative site no bleeding no hematoma. 16:06:54 Post right radial artery:stable 16:07:00 Post Procedure Pulses reassessed and unchanged 16:07:03 Post procedure rhythm: unchanged. 16:07:06 Estimated blood loss: 5 ml 16:07:23 Post procedure instruction explained to patient.Patient verbalizes understanding. 16:07:23 Patient needs reinforcement of post procedure teaching. 16:07:47 Procedure and supply charges have been captured, reviewed, submitted and are correct. 16:07:51 Procedure Complication : No complications 16:07:53 Vital chart was stopped 16:07:54 See physician's report for complete and final results. 16:08:24 Report given to Pre/Post Procedure Room. 16:08:26 Patient transfered to Pre/Post Procedure Room with Stretcher. 16:08:29 Procedure ended. 16:08:29 Full Disclosure recording stopped 16:08:34 End room use (Document Last) Device Usage Item Name Manufacture Quantity Catalog Number Hospital Part Current M inimal Lot# / Charge Number Stock Stock Serial# Code ACIST Syringe Acist 1 27811 656674 770535 736662 2 0 (64921) Medical Systems DermaMedics Tegaderm 4 x 4 3M 1 1626W 964499 598872 865612 5 (1626W) ACIST Manifold Acist 1 68166 972739 422055 299934 5 (08013) Medical Systems Inc ACIST Hand Acist 1 19869 373348 680102 403688 5 Control (16850) Medical Systems Inc Medline Cath Cardinal 1 [id number] 552017 54895 150664 5 Pack Health ([id number]) Bag Decanter Microtek 1 2001S 986207 68937 714039 5 (2001S) Medical Inc. DIAGNOSTIC WIRE St Armin 1 470807 453746 133370 238095 3 0 .035 260cm J wire (130815) MBrace Wrist Advanced 1 140-0250-00 494111 23872 979092 5 Support Vascular (102741777) Dynamics SHEATH 6Fr Merit 1 [id number] 698266 796023 329607 5 Prelude Radial Medical ([id number]) DIAGNOSTIC Cardinal 1 [id number] 068001 412961 571298 5 Pigtail 5Fr Health catheter (739192I) GLIDE WIRE Terumo 1 XL1900 155818 866522 530673 5 Super Stiff Angled 260cm (ZS2704) GUIDE 6FR EBU Medtronic 1 AS4MPZ90 385994 87102 354839 1 4.0 guide catheter ([id number]) DIAGNOSTIC AL 2 Cardinal 1 [id number] 309156 688825 143500 1 5 5Fr catheter Filao (845787G) TR BAND Terumo 1 MEY24-LOC 650203 990255 511850 4 0 Standard ([id number]) Signature Audit Beltrami Stage Time Signature Unsigned Intra-Procedure 10/21/2017 Leah Fischer 4:10:28 PM RT(R) Signatures Monitor : Wilfredo Mace RN Signature : Date : Time : Monitor : Leah Fischer RT Signature : Date : Time : [facility] [address] [place] [address]
--- NOTE | ~2017-10-21 | OP ---
PATIENT NAME: CONTRERAS SHARMA MEDICAL RECORD: [id number] :38 LOCATION:D.CAT ADMISSION DATE: SURGEON: STEVE CORBETT MD DATE OF OPERATION: 10/21/2017 PROCEDURES: 1. Left heart catheterization. 2. Selective coronary angiography. 3. Left ventriculogram. 4. Vein graft angiography. INDICATION: Angina. PROCEDURE: After informed consent was obtained and after detailed description of risks and benefits as well as alternative therapies, the patient elected to proceed with angiogram and heart catheterization. The right radial area was prepped and draped in normal sterile fashion. Right radial artery was cannulated via modified Seldinger technique with placement of 6-Macedonian sheath. All catheters were exchanged through this sheath. FINDINGS: Left ventriculogram was performed in standard 30-degree BOOGIE view, reveals preserved cardiac wall motion. Ejection fraction 50%. SELECTIVE CORONARY ANGIOGRAPHY: 1. Left main is with previously placed stent that is widely patent. 2. Left anterior descending has bson-wa-qioyrglp irregularities, but no flow-limiting stenosis. 3. Left circumflex is totally occluded. It is chronic and unchanged from previous angiography. 4. Right coronary is totally occluded. 5. Vein graft to the right coronary is widely patent. Distal right coronary has previously placed stents that are widely patent. There is otherwise only moderate diffuse disease throughout. Moderate diffuse disease but wide patency of his bypass graft to the RCA and his left main stent. Continue medical management of coronary disease and cardiac risk factors. TRANSINT:[id number] Voice Confirmation ID: [id number] DOCUMENT ID: [id number] STEVE CORBETT MD at 1810 CC: [id number] DICTATION DATE: 10/21/17 1613 ZONING ASSISTANT: 10/21/17 1904 DEP CLI 10/21/17 [facility] [address] [place] [id number]
--- NOTE | ~2017-10-21 | CN ---
PATIENT NAME:CONTRERAS SHARMA MEDICAL RECORD: [id number] : 38 LOCATION:D.CAT ADMIT DATE: ACCOUNT: [id number] CONSULTING PHYSICIAN: STEVE CORBETT MD REFERRING PHYSICIAN: MOHAMUD BACA MD DATE OF CONSULTATION: 10/21/2017 CARDIOLOGY CONSULTATION ADMITTING DIAGNOSES: 1. Angina. 2. Coronary artery disease. 3. Previous percutaneous transluminal coronary angioplasty stent. 4. Peripheral vascular disease. 5. Chronic obstructive pulmonary disease. 6. Smoking history. 7. Hypertension. HISTORY OF PRESENT ILLNESS: Mr. Sharma presents with chest pain and abdominal pain. His systolic blood pressure was high and he had T-wave and ST depression on his EKG. With clonidine, his blood pressure lowered. His symptoms resolved. His last cardiac stent was approximately 1 year ago. PHYSICAL EXAMINATION: GENERAL APPEARANCE: Well-nourished, well-developed, appears stated age. Level of distress, comfortable. PSYCHIATRIC: Mental status, alert, normal affect. Orientation, oriented to time, place and person. EYES: Lids and conjunctiva, noninjected. No discharge, no pallor. ENT: Lips, teeth, gums, normal dentition. Oropharynx, no cyanosis, no pallor. NECK: Carotid arteries, bilateral normal upstroke, no bruits, no thrills. JUGULAR VEINS: No jugular venous pressure or distention. CERVICAL LYMPH NODES: Nontender, nonenlarged. THYROID: Not enlarged. Nontender. No nodules. LUNGS: Respiratory effort, unlabored. CHEST: Normal curvature. No thoracic deformity. No chest wall tenderness. Percussion, resonant. Auscultation, clear. No wheezes, no rales, no rhonchi. CARDIOVASCULAR: Precordial exam, nondisplaced. No heaves or pericardial thrills. Rate and rhythm, regular. Heart sounds, normal S1, normal S2. No S3, no gallop, no rub. Systolic murmur, not heard. Diastolic murmur, not heard. EXTREMITIES: No cyanosis, no edema. Peripheral pulses, full and equal in all extremities, except as noted. No bruits appreciated. ABDOMEN: Soft, nondistended. Normal aorta. No bruit. Nontender. No masses. Liver, nontender, no hepatomegaly. Spleen, nontender, no splenomegaly. MUSCULOSKELETAL: No joint tenderness. No joint swelling. No erythema. NEUROLOGICAL: Normal gait, normal strength, normal tone. SKIN: Warm and dry. OVERALL IMPRESSION: This is anginal equivalent. Most likely, he has recurrent hemodynamically significant coronary artery disease. We will proceed with coronary angiography. Further care depends upon the findings of the angiography. TRANSINT:[id number] Voice Confirmation ID: [id number] DOCUMENT ID: [id number] CONSULT REPORT [id number] CONTRERAS SHARMA JEFFREY MD at 1611 CC: [id number] DICTATION DATE: 10/21/17 1131 ASSISTANT PROFESSOR OF CHEMISTRY: 10/21/17 1252 [facility] [address] [place] [address]
[~2017-10-21 09:43] MED LIST changes: +OMEPRAZOLE40 MG PO
[2017-10-21] MEDS ORDERED: BREO ELLIPTA 21 EACH (09:51)
[2017-10-21 10:20] LABS: BASOPHILS 0.8 % (0-2); EOSINOPHILS 1.8 % (0-7); HEMATOCRIT 40.5 % (42.0-54.0); HEMOGLOBIN 12.3 g/dL (13.5-17.5); IMMATURE GRANULOCYTES 0.3 % (0-5); LYMPHOCYTES 21.4 % (15-50); MCH 25.2 pg (26.0-34.0); MCHC 30.4 g/dL (31.0-37.0); MCV 82.8 fL (80.0-100.0); MEAN PLATELET VOLUME 9.5 fL (7.4-10.4); MONOCYTES 12.9 % (2-11); NEUTROPHILS 62.8 % (40-80); PLATELET COUNT 193 10x3/uL (130-400); RBC 4.89 10x6/uL (4.20-6.10); RDW 18.7 % (11.5-14.5); WBC 3.8 10x3/uL (4.8-10.8)
[2017-10-21 10:39] LABS: ALBUMIN 3.4 g/dL (3.4-5.0); ALKALINE PHOSPHATASE 87 U/L (46-116); ALT (SGPT) 36 U/L (10-68); CALC OSMOLALITY 269 mosm/kg (275-300); CALCIUM 9.4 mg/dL (8.5-10.1); CARBON DIOXIDE 25.4 mmol/L (21.0-32.0); CHLORIDE - SERUM 100 mmol/L (98-107); CREATININE - SERUM 1.5 mg/dL (0.6-1.3); GLUCOSE 126 mg/dL (74-106); PROTEIN - SERUM 8.3 g/dL (6.4-8.2); SODIUM 134 mmol/L (136-145); UREA NITROGEN 13 mg/dL (7-18); eGFR NON AFRICAN AMERICAN 48 mL/min (90-120)
[2017-10-21 10:50] LABS: CKMB 2.3 U/L (0.0-3.6); CREATINE KINASE 71 UL (21-232)
[2017-10-21] MEDS ORDERED: BYSTOLIC10 MG PO (17:14)
[2017-10-21] MEDS ORDERED: BYSTOLIC5 MG PO (18:53)
== END 2017-10-21 19:03 | disposition home or self-care (01) ==
LOC: OBSVTIME → D.CATH 09:43 → D.ER 09:43 → D.EDHOLD 11:38 → OBSVTIME 11:39 → EDSTATUS 11:44 → D.CATH 19:03
PROVIDERS: Family Medicine
DX: I25.119 Atherosclerotic heart disease of native coronary artery with unspecified angina pectoris (principal); Z95.1 Presence of aortocoronary bypass graft; Z95.5 Presence of coronary angioplasty implant and graft; I10 Essential (primary) hypertension; J44.9 Chronic obstructive pulmonary disease, unspecified; Z87.891 Personal history of nicotine dependence; I73.9 Peripheral vascular disease, unspecified; Z01.812 Encounter for preprocedural laboratory examination

== ENCOUNTER → 2017-11-13 09:16 | Outpatient (CLI) | payer MEDICARE, OTHER ==
[2017-10-21 09:48] VITALS: BMI 27.4
[~2017-11-13 09:16] MED LIST changes: +BYSTOLIC10 MG PO; +BYSTOLIC2.5 MG PO; +BYSTOLIC5 MG PO
== END | disposition home or self-care (01) ==
LOC: D.MRI 09:00
DX: M54.5 Low back pain (principal)

== ENCOUNTER 2017-12-28 11:22 | Inpatient (IN) | payer MEDICARE, OTHER ==
[~2017-12-28] VITALS: Ht 170.2 cm; Wt 78.2 kg
--- NOTE | ~2017-12-28 | EC ---
PATIENT:CONTRERAS SHARMA DATE OF SERVICE: 12/28/17 SEX: M MEDICAL RECORD: [id number] DATE OF : 38 LOCATION:D.MS [facility] AGE OF PATIENT: 77 ADMISSION DATE: 12/28/17 REFERRING PHYSICIAN: INTERPRETING PHYSICIAN: STEVE CORBETT MD ECHOCARDIOGRAM REPORT ECHO CHARGES 4 ECHO COMPLETE Date: 12/29 CLINICAL DIAGNOSIS: CHF ECHOCARDIOGRAPHIC MEASUREMENTS (adult normal given) AC root (d.<3.7cm) 3.9 cm LV Septum d (<1.2 cm> 1.2 cm Valve Excursion 1.1 cm LV Septum (systole) 1.4 cm Left Atria (s.<4.0cm> 3.8 cm LVPW d(<1.2cm) 1.0 cm RV (d.<2.3cm) 3.8 cm LVPW (sytole) 1.1 cm LV diastole(<5.6CM) 5.3 cm MV E-F(>70mm/sec) cm LV systole 4.5 cm LVOT Diameter 1.7 cm MV exc.(>10mm) cm Est.ejection fraction (50-75%) % DOPPLER: LVIT cm/sec A 90 cm/sec E 51 cm/sec LA cm/sec RVSP 25.7 mmHg LVOT 87 cm/sec AOP1/2T m/s Asc. Ao 179 cm/sec RVOT 76 cm/sec RA cm/sec PA 96 cm/sec AV Gradient Peak 12.9 mmHg AV Mean 6.3 mmHg AV Area 1.5 cm MV Gradient Peak 3.3 mmHg MV Mean 1.1 mmHg MV Area cm COMMENTS: Admittance Attendant: Michael CELESTIN Specialty Development Consultant: Chau Petty TAPE# PACS Pericardial Effusion N DATE OF SERVICE: 12/29/2017 PROCEDURE: Echocardiogram. FINDINGS: 1. Left ventricular chamber size is within normal limits. Left ventricular systolic function is normal. Overall ejection fraction estimated 50% to 55%. 2. Left atrium, right atrium, right ventricle chamber size is within normal limits. 3. Valvular structures have normal structure and motion. ECHOCARDIOGRAM REPORT [id number] CONTRERAS SHARMA 4. Doppler interrogation only reveals trace tricuspid regurgitation, no other valvular insufficiency or stenosis. 5. No evidence of pericardial effusion or left ventricular thrombus. TRANSINT:[id number] Voice Confirmation ID: [id number] DOCUMENT ID: [id number] STEVE CORBETT MD at 1642 CC: [id number] DICTATION DATE: 12/29/17 1221 MANAGER IMMUNOLOGY: 12/29/17 1228 DIS IN 12/29/17 [facility] [address] [id number]
[~2017-12-28 11:22] MED LIST changes: -BYSTOLIC2.5 MG PO
[2017-12-28 13:00] VITALS: BP 164/86
[2017-12-28 14:00] VITALS: BP 161/80
[2017-12-28 14:54] LABS: APPEARANCE CLEAR (CLEAR); BILIRUBIN NEGATIVE (NEGATIVE); COLOR YELLOW (YELLOW); GLUCOSE NEGATIVE (NEGATIVE); KETONE NEGATIVE (NEGATIVE); NITRITE NEGATIVE (NEGATIVE); PROTEIN NEGATIVE (NEGATIVE); UROBILINOGEN NORMAL (NORMAL)
[2017-12-28 14:56] LABS: BACTERIA FEW /hpf (NONE SEEN); WHITE CELLS - URINE 0-5 /hpf (0-5)
[2017-12-28 15:00] VITALS: BP 172/85
[2017-12-28 15:19] LABS: BASOPHILS 0.5 % (0-2); EOSINOPHILS 0.9 % (0-7); HEMATOCRIT 39.2 % (42.0-54.0); HEMOGLOBIN 12.1 g/dL (13.5-17.5); IMMATURE GRANULOCYTES 0.4 % (0-5); LYMPHOCYTES 16.2 % (15-50); MCH 26.6 pg (26.0-34.0); MCHC 30.9 g/dL (31.0-37.0); MCV 86.2 fL (80.0-100.0); MEAN PLATELET VOLUME 8.9 fL (7.4-10.4); MONOCYTES 10.8 % (2-11); NEUTROPHILS 71.2 % (40-80); PLATELET COUNT 203 10x3/uL (130-400); RBC 4.55 10x6/uL (4.20-6.10); RDW 17.9 % (11.5-14.5); WBC 5.6 10x3/uL (4.8-10.8)
[2017-12-28 15:55] LABS: ALBUMIN 3.4 g/dL (3.4-5.0); ALKALINE PHOSPHATASE 80 U/L (46-116); ALT (SGPT) 23 U/L (10-68); BILIRUBIN - TOTAL 0.81 mg/dL (0.2-1.3); C-REACTIVE PROTEIN 1.4 mg/dL (0.0-0.9); CALC OSMOLALITY 247 mosm/kg (275-300); CALCIUM 8.8 mg/dL (8.5-10.1); CARBON DIOXIDE 26.6 mmol/L (21.0-32.0); CHLORIDE - SERUM 95 mmol/L (98-107); CKMB 1.5 U/L (0.0-3.6); CREATINE KINASE 54 UL (21-232); CREATININE - SERUM 1.2 mg/dL (0.6-1.3); D-DIMER-QUANTITATIVE 0.93 ug/mLFEU (0.20-0.54); GLUCOSE 101 mg/dL (74-106); INR 1.01 (0.85-1.17); PRO BNP 1459 pg/mL (0-450); PROTEIN - SERUM 7.9 g/dL (6.4-8.2); PROTIME 12.7 SECONDS (11.6-15.0); SODIUM 122 mmol/L (136-145); TROPONIN-I < 0.017 ng/mL (0.000-0.060); UREA NITROGEN 17 mg/dL (7-18); eGFR NON AFRICAN AMERICAN 62 mL/min (90-120)
[2017-12-28 16:00] VITALS: BP 181/84
[2017-12-28 17:00] VITALS: BP 168/79
[2017-12-28 22:22] VITALS: BP 146/73; BMI 27.0
[2017-12-29 05:15] VITALS: BP 123/59
[2017-12-29 08:27] VITALS: BP 109/66
[2017-12-29 09:03] VITALS: Ht 170.2 cm; Wt 78.2 kg
[2017-12-29 09:53] LABS: BASOPHILS 0.4 % (0-2); EOSINOPHILS 0.9 % (0-7); HEMATOCRIT 38.8 % (42.0-54.0); HEMOGLOBIN 12.2 g/dL (13.5-17.5); IMMATURE GRANULOCYTES 0.4 % (0-5); LYMPHOCYTES 15.8 % (15-50); MCH 26.9 pg (26.0-34.0); MCHC 31.4 g/dL (31.0-37.0); MCV 85.5 fL (80.0-100.0); MEAN PLATELET VOLUME 9.1 fL (7.4-10.4); MONOCYTES 14.4 % (2-11); NEUTROPHILS 68.1 % (40-80); PLATELET COUNT 210 10x3/uL (130-400); RBC 4.54 10x6/uL (4.20-6.10); WBC 4.6 10x3/uL (4.8-10.8)
[2017-12-29 10:15] LABS: ALBUMIN 3.3 g/dL (3.4-5.0); ANION GAP 13.7 mmol/L (8-16); BILIRUBIN - TOTAL 0.76 mg/dL (0.2-1.3); CALCIUM 8.8 mg/dL (8.5-10.1); CARBON DIOXIDE 25.9 mmol/L (21.0-32.0); CREATININE - SERUM 1.5 mg/dL (0.6-1.3); POTASSIUM - SERUM 3.6 mmol/L (3.5-5.1); PROTEIN - SERUM 7.9 g/dL (6.4-8.2)
[2017-12-29] MEDS ORDERED: BYSTOLIC2.5 MG PO (10:44)
== END 2017-12-29 11:44 | disposition home or self-care (01) | DRG 309 ==
LOC: D.ER 11:22 → D.EDHOLD 18:05 → D.MS 18:05
PROVIDERS: Emergency Medicine; Family Medicine
DX: R00.1 Bradycardia, unspecified (principal); J44.1 Chronic obstructive pulmonary disease with (acute) exacerbation; I13.0 Hypertensive heart and chronic kidney disease with heart failure and stage 1 through stage 4 chronic kidney disease, or unspecified chronic kidney disease; E87.1 Hypo-osmolality and hyponatremia; I50.9 Heart failure, unspecified; N18.3 Chronic kidney disease, stage 3 (moderate); Z87.891 Personal history of nicotine dependence; Z95.1 Presence of aortocoronary bypass graft; Z95.5 Presence of coronary angioplasty implant and graft; Z99.81 Dependence on supplemental oxygen; N40.0 Benign prostatic hyperplasia without lower urinary tract symptoms; K21.9 Gastro-esophageal reflux disease without esophagitis; R79.89 Other specified abnormal findings of blood chemistry

== ENCOUNTER 2018-02-22 16:01 | Emergency (ER) | payer MEDICARE, OTHER ==
[~2018-02-22] VITALS: Ht 170.2 cm; Wt 81.4 kg
[~2018-02-22 16:01] MED LIST changes: +BYSTOLIC2.5 MG PO
[2018-02-22 16:04] VITALS: Ht 170.2 cm; Wt 81.4 kg
[2018-02-22] MEDS ORDERED: COZAAR100 MG PO (16:06)
[2018-02-22 16:33] LABS: BASOPHILS 0.2 % (0-2); EOSINOPHILS 1.3 % (0-7); HEMATOCRIT 40.5 % (42.0-54.0); HEMOGLOBIN 12.6 g/dL (13.5-17.5); IMMATURE GRANULOCYTES 0.2 % (0-5); LYMPHOCYTES 15.2 % (15-50); MCHC 31.1 g/dL (31.0-37.0); MEAN PLATELET VOLUME 8.9 fL (7.4-10.4); NEUTROPHILS 70.1 % (40-80); PLATELET COUNT 179 10x3/uL (130-400); RDW 18.3 % (11.5-14.5); WBC 5.5 10x3/uL (4.8-10.8)
[2018-02-22 17:07] LABS: ALBUMIN 3.2 g/dL (3.4-5.0); ANION GAP 14.5 mmol/L (8-16); BILIRUBIN - TOTAL 0.64 mg/dL (0.2-1.3); CALCIUM 9.2 mg/dL (8.5-10.1); CARBON DIOXIDE 23.5 mmol/L (21.0-32.0); CREATININE - SERUM 1.2 mg/dL (0.6-1.3); PROTEIN - SERUM 7.7 g/dL (6.4-8.2)
[2018-02-22] MEDS ORDERED: NORVASC5 MG PO (17:31)
[2018-02-22 18:01] VITALS: BP 182/80
== END 2018-02-22 17:53 | disposition home or self-care (01) ==
LOC: D.ER 16:01
PROVIDERS: Emergency Medicine
DX: I10 Essential (primary) hypertension (principal); R00.0 Tachycardia, unspecified; J44.9 Chronic obstructive pulmonary disease, unspecified; K21.9 Gastro-esophageal reflux disease without esophagitis

== ENCOUNTER → 2018-08-20 13:59 | Outpatient (CLI) | payer MEDICARE, OTHER ==
[~2018-08-20 13:59] MED LIST changes: +COZAAR100 MG PO
== END | disposition home or self-care (01) ==
LOC: D.RT 13:59
DX: J43.9 Emphysema, unspecified (principal)

== ENCOUNTER → 2018-12-29 11:06 | Outpatient (CLI) | payer MEDICARE, OTHER ==
[2018-02-22 16:04] VITALS: BMI 28.1
[~2018-12-29 11:06] MED LIST changes: +ATROVENT 0.02%2.5 ML UPD; +BETAPACE 80 MG80 MG PO; +DALIRESP500 MCG PO; +K-DUR20 MEQ PO; +LASIX40 MG PO; +LEVOFLOXACIN500 MG PO; +PROTONIX40 MG PO; +PULMICORT0.5 MG/21 UPD
== END | disposition home or self-care (01) ==
LOC: D.CT 11:06
PROVIDERS: ATTEND Internal Medicine Pulmonary Disease
DX: J44.9 Chronic obstructive pulmonary disease, unspecified (principal)

== ENCOUNTER 2019-01-25 13:32 | Inpatient (IN) | payer MEDICARE, OTHER ==
[~2019-01-25] VITALS: Ht 170.2 cm; Wt 73.6 kg
[~2019-01-25 13:32] MED LIST changes: -ATROVENT 0.02%2.5 ML UPD; -BETAPACE 80 MG80 MG PO; -DALIRESP500 MCG PO; -K-DUR20 MEQ PO; -LASIX40 MG PO; -LEVOFLOXACIN500 MG PO; -PROTONIX40 MG PO; -PULMICORT0.5 MG/21 UPD
[2019-01-25 14:23] LABS: ALBUMIN 3.3 g/dL (3.4-5.0); ALKALINE PHOSPHATASE 137 U/L (46-116); ALT (SGPT) 22 U/L (10-68); BILIRUBIN - TOTAL 1.18 mg/dL (0.2-1.3); CALC OSMOLALITY 263 mosm/kg (275-300); CALCIUM 9.5 mg/dL (8.5-10.1); CHLORIDE - SERUM 97 mmol/L (98-107); CREATININE - SERUM 1.4 mg/dL (0.6-1.3); GLUCOSE 127 mg/dL (74-106); POTASSIUM - SERUM 4.4 mmol/L (3.5-5.1); PROTEIN - SERUM 8.3 g/dL (6.4-8.2); SODIUM 130 mmol/L (136-145); UREA NITROGEN 15 mg/dL (7-18); eGFR NON AFRICAN AMERICAN 52 mL/min (90-120)
--- NOTE | 2019-01-25 14:25 | NUR ---
PATIENT PLACED ON BI PAP VIA R/T, TOLERATES WELL.
[2019-01-25 14:26] LABS: BASOPHILS 0.4 % (0-2); EOSINOPHILS 0.8 % (0-7); HEMATOCRIT 33.5 % (42.0-54.0); HEMOGLOBIN 9.9 g/dL (13.5-17.5); IMMATURE GRANULOCYTES 0.2 % (0-5); LYMPHOCYTES 14.3 % (15-50); MCH 22.9 pg (26.0-34.0); MCHC 29.6 g/dL (31.0-37.0); MCV 77.5 fL (80.0-100.0); MEAN PLATELET VOLUME 8.7 fL (7.4-10.4); MONOCYTES 11.8 % (2-11); NEUTROPHILS 72.5 % (40-80); RBC 4.32 10x6/uL (4.20-6.10); RDW 19.6 % (11.5-14.5); WBC 5.1 10x3/uL (4.8-10.8)
[2019-01-25 14:34] LABS: PLATELET COUNT 230 10x3/uL (130-400)
[2019-01-25 14:48] LABS: CKMB 2.9 U/L (0.0-3.6); CREATINE KINASE 172 UL (21-232); PRO BNP 4989 pg/mL (0-450); TROPONIN-I < 0.017 ng/mL (0.000-0.060)
[2019-01-25 14:51] LABS: APTT 31.7 SECONDS (22.8-39.4); INR 1.17 (0.85-1.17); PROTIME 14.4 SECONDS (11.6-15.0)
[2019-01-25 16:00] VITALS: BP 143/78
[2019-01-25 17:00] VITALS: BP 148/71
--- NOTE | 2019-01-25 18:59 | NUR ---
PATIENT HAS VOIDED TOTAL OF 1400CC OF CLEAR YELLOW URINE.
--- NOTE | 2019-01-25 21:50 | NUR ---
PT HAS VOIDED 600 CC THIS SINCE LAST NOTE
--- NOTE | 2019-01-25 22:23 | NUR ---
RESPIRATORY CALLED FOR TRANSPORT TO ADMITTED ROOM
--- NOTE | 2019-01-25 22:34 | NUR ---
PT VOIDED 400 CC
--- NOTE | 2019-01-25 23:30 | NUR ---
PT CURRENTLY ON BILEVEL F102 80 % SPO2 97 HFNC ON SB 8L PT APPEARS COMFORTABLE WITH ZERO CYANOSIS EQUALATERAL EXCURSION NO IMMEDIATE S/S RESP DISTRESS NOTED WILL CONTINUE TO MONITOR
[2019-01-26] VITALS: BP 153/84
--- NOTE | 2019-01-26 00:43 | NUR ---
DECREASED FIO2 70% SPO2 CURRENTLY 96 % AND HOLDING
[2019-01-26 01:21] VITALS: BP 153/84; BMI 28.2
--- NOTE | 2019-01-26 01:36 | NUR ---
PATIENT STATES HE TAKES A FEW UNKNOWN MEDICATIONS.
[2019-01-26 04:00] VITALS: BP 105/56
--- NOTE | 2019-01-26 04:38 | NUR ---
DECREASED FI02 TO 60% SPO2 96 AND HOLDING
[2019-01-26 05:58] LABS: BASOPHILS 0 % (0-2); EOSINOPHILS 0 % (0-7); HEMATOCRIT 31.9 % (42.0-54.0); HEMOGLOBIN 9.5 g/dL (13.5-17.5); IMMATURE GRANULOCYTES 0.3 % (0-5); LYMPHOCYTES 7.5 % (15-50); MCH 22.9 pg (26.0-34.0); MCHC 29.8 g/dL (31.0-37.0); MCV 77.1 fL (80.0-100.0); MEAN PLATELET VOLUME 9.1 fL (7.4-10.4); MONOCYTES 1.4 % (2-11); NEUTROPHILS 90.8 % (40-80); PLATELET COUNT 203 10x3/uL (130-400); RBC 4.14 10x6/uL (4.20-6.10); RDW 19.5 % (11.5-14.5)
[2019-01-26 06:30] LABS: % SATURATION 7 % (15-55); IRON 31 ug/dl (35-150); TOTAL IRON BIND CAPACITY 419 ug/dl (260-445); UNSAT IRON BIND CAPACITY 388 ug/dl (150-375)
[2019-01-26 06:33] LABS: WBC 3.5 10x3/uL (4.8-10.8)
[2019-01-26 07:03] LABS: ANION GAP 14.7 mmol/L (8-16); CALCIUM 9.1 mg/dL (8.5-10.1); CARBON DIOXIDE 25.9 mmol/L (21.0-32.0); CREATININE - SERUM 1.5 mg/dL (0.6-1.3); MAGNESIUM - SERUM 1.7 mg/dL (1.8-2.4); PHOSPHOROUS 3.8 mg/dL (2.5-4.9); POTASSIUM - SERUM 4.6 mmol/L (3.5-5.1)
[2019-01-26 11:25] LABS: APPEARANCE CLEAR (CLEAR); BILIRUBIN NEGATIVE (NEGATIVE); COLOR YELLOW (YELLOW); GLUCOSE NEGATIVE (NEGATIVE); KETONE NEGATIVE (NEGATIVE); PROTEIN NEGATIVE (NEGATIVE); SPECIFIC GRAVITY 1.005 (1.005-1.020); UROBILINOGEN NORMAL (NORMAL)
[2019-01-26 12:00] VITALS: BP 98/48
[2019-01-26 13:11] VITALS: BMI 28.2
[2019-01-26 16:00] VITALS: BP 90/54
--- NOTE | 2019-01-26 19:05 | NUR ---
EVENING ROUNDS COMPLETE, PT SITTING UP IN BED, AAOX4, NO SIGNS OF DISTRESS. PT DENIES ANY PAIN AT THIS TIME. CL IN REACH, BED IN LOWEST POSITION. CONT WITH POC.
[2019-01-26 19:46] VITALS: BP 93/42
[2019-01-27] VITALS: BP 113/48
[2019-01-27 04:00] VITALS: BP 117/57
[2019-01-27 04:31] LABS: BASOPHILS 0 % (0-2); EOSINOPHILS 0 % (0-7); HEMOGLOBIN 8.6 g/dL (13.5-17.5); IMMATURE GRANULOCYTES 0.2 % (0-5); MCH 22.6 pg (26.0-34.0); MCHC 29.7 g/dL (31.0-37.0); MCV 76.3 fL (80.0-100.0); MEAN PLATELET VOLUME 8.8 fL (7.4-10.4); MONOCYTES 3.4 % (2-11); NEUTROPHILS 91.4 % (40-80); PLATELET COUNT 182 10x3/uL (130-400); RDW 19.5 % (11.5-14.5)
[2019-01-27 04:44] LABS: WBC 6.6 10x3/uL (4.8-10.8)
[2019-01-27 04:55] LABS: ANION GAP 10.9 mmol/L (8-16); CALCIUM 8.5 mg/dL (8.5-10.1); CARBON DIOXIDE 29.5 mmol/L (21.0-32.0); CREATININE - SERUM 1.6 mg/dL (0.6-1.3); PHOSPHOROUS 3.7 mg/dL (2.5-4.9)
[2019-01-27 05:02] LABS: POTASSIUM - SERUM 5.4 mmol/L (3.5-5.1)
--- NOTE | 2019-01-27 07:10 | NUR ---
REPORT RECEIVED. WILL CONTINUE WITH POC. PT CURRENTLY LYING SEMI FOWLERS. CALL LIGHT W/I REACH. PT IS RESTING AT THIS TIME. RR EVEN AND UNLABORED ON BIPAP. L.AC PIV IS SALINE LOCKED. NO S/S OF DISTRESS NOTED. WILL CTM.
[2019-01-27 08:00] VITALS: BP 91/55
[2019-01-27 12:00] VITALS: BP 128/76
--- NOTE | 2019-01-27 14:01 | NUR ---
I have reviewed this patient and I concur with the Shift Assessment completed by the Licensed Practical Nurse today this shift.
[2019-01-27 16:18] VITALS: BP 109/47
--- NOTE | 2019-01-27 19:29 | NUR ---
EVENING ROUNDS COMPLETED. AAOX3, VSS, PT ON CONTNUOUS O2 @ 11L HF PT ON CONTINUOUS O2 MONITRING, SPO2 91 @ THIS TIME. NO S/S OF RESPIRATORY DISTRESS. BIPAP @ BEDSIDE. WILL CPOC. CL WITHIN REACH.
[2019-01-27 20:00] VITALS: BP 110/56
[2019-01-28] VITALS (7 sets, daily range): BP systolic 101–131; BP diastolic 48–64
[2019-01-28 06:37] LABS: BASOPHILS 0 % (0-2); EOSINOPHILS 0 % (0-7); HEMATOCRIT 31.1 % (42.0-54.0); HEMOGLOBIN 9.1 g/dL (13.5-17.5); IMMATURE GRANULOCYTES 0.2 % (0-5); MCH 22.6 pg (26.0-34.0); MCHC 29.3 g/dL (31.0-37.0); MCV 77.2 fL (80.0-100.0); MEAN PLATELET VOLUME 8.7 fL (7.4-10.4); MONOCYTES 2.3 % (2-11); NEUTROPHILS 93.5 % (40-80); PLATELET COUNT 212 10x3/uL (130-400); RBC 4.03 10x6/uL (4.20-6.10); RDW 19.8 % (11.5-14.5)
[2019-01-28 06:44] LABS: WBC 8.3 10x3/uL (4.8-10.8)
[2019-01-28 06:54] LABS: ANION GAP 13.7 mmol/L (8-16); CALCIUM 8.6 mg/dL (8.5-10.1); CARBON DIOXIDE 26.9 mmol/L (21.0-32.0); CREATININE - SERUM 1.6 mg/dL (0.6-1.3); MAGNESIUM - SERUM 2.1 mg/dL (1.8-2.4); POTASSIUM - SERUM 4.6 mmol/L (3.5-5.1)
[2019-01-28 07:01] LABS: PHOSPHOROUS 4.8 mg/dL (2.5-4.9)
--- NOTE | 2019-01-28 07:20 | NUR ---
PT RESTING IN BED, SHIFT ASSESSMENT PERFORMED. CALL LIGHT WITHIN REACH. DENIES ANY NEEDS AT THIS TIME, WILL CONT TO FOLLOW POC
--- NOTE | 2019-01-28 11:56 | NUR ---
PT RESTING IN BED EATING LUNCH, DENIES ANY NEEDS AT THIS TIME, CALL LIGHT WITHIN REACH, WILL CONT TO FOLLOW POC
--- NOTE | 2019-01-28 12:18 | NUR ---
Nutrition Follow-up: Pt reports good appetite/PO intake "if I like the food". Diet: Cardiac PO intake: 60% avg x 6 meals Wt: 180# Last BM: 01/28 Labs reviewed Meds reviewed Continue current diet as tolerated. [place] food preferences within diet restrictions. RD following.
--- NOTE | 2019-01-28 14:26 | MORECARE ---
CASE MANAGEMENT DISCHARGE SUMMARY PATIENT: CONTRERAS SHARMA UNIT: [id number] ADM DATE: 01/25/19 AGE: 78 : 38 SEX: M ROOM/BED: D.2133 AUTHOR: MELANIE ROMEO PHYSICIAN: REFERRING PHYSICIAN: LUTHER BUI MD DATE OF SERVICE: 01/28/19 Discharge Plan Patient Name: CONTRERAS SHARMA Facility: [facility]:[place] : 1940 Planned Disposition: Home Anticipated Discharge Date: 01/28/19 Discharge Date: Expected LOS: 3 Initial Reviewer: [email or web address] Initial Review Date: 01/28/2019 Generated: 01/28/19 3:26 pm External Providers External Provider: [id number] Next Contact Date: 01/28/2019 Service Request Date: Service Type: Resolution: Reviewer: Comments: Patient Name: CONTRERAS SHARMA Page [phone] at 1426 All edits/amendments must be made on the electronic document DICTATION DATE: 01/28/19 1426 SR SOLUTIONS CONSULTANT: THIERRY 01/28/19 1426 RPT#: [id number] [place] DATE: STATUS: ADM IN [facility] [address] [place] [address] END OF REPORT
--- NOTE | 2019-01-28 14:59 | MORECARE ---
CASE MANAGEMENT DISCHARGE SUMMARY PATIENT: CONTRERAS SHARMA UNIT: [id number] ADM DATE: 01/25/19 AGE: 78 : 39 SEX: M ROOM/BED: D.2133 AUTHOR: OUSMANEDOC PHYSICIAN: REFERRING PHYSICIAN: LUTHER BUI MD DATE OF SERVICE: 01/28/19 Discharge Plan Patient Name: CONTRERAS SHARMA Facility: [facility]:[place] : 1940 Planned Disposition: Home Anticipated Discharge Date: 01/28/19 Discharge Date: Expected LOS: 3 Initial Reviewer: [id number] Initial Review Date: 01/28/2019 Generated: 01/28/19 3:59 pm DCPIA - Discharge Planning Initial Assessment Updated by [email or web address]: Jules Acosta on 01/28/19 2:56 pm * Is the patient Alert and Oriented? Yes * How many steps to enter\exit or inside your home? * PCP DR. DUSTIN MCALLISTER * Pharmacy [facility] * Preadmission Environment Home with Family * ADLs Independent * Equipment Oxygen * Other Equipment HOME AND PORTABLE OXYGEN - [facility] * List name and contact numbers for known caregivers / representatives who currently or will assist patient after discharge: LALO SHARMA, SPOUSE, * Verbal permission to speak to the caregivers and representatives has been obtained from the patient. Yes * Community resources currently utilized None * Please name any agencies selected above. NONE * Additional services required to return to the preadmission environment? No * Can the patient safely return to the preadmission environment? Yes * Has this patient been hospitalized within the prior 30 days at any hospital? No Coverage Notice Reviewer: [id number] Torri Acosta Notice Issued Date-Time: 01/28/2019 14:15 Notice Type: IM Discharge Notice Notice Delivered To: Patient Relationship to Patient: Client Analyst Name: Delivery Method: HAND - Hand Delivered Calista Days: Prior Verbal Notification: Recipient Understood Notice: Yes Recipient Signature: Yes Med Rec Note Co-signed by Attending: Coverage Notice Comment: Reviewer: [id number] Torri Acosta Notice Issued Date-Time: 01/28/2019 14:15 Notice Type: Patient Choice Letter Notice Delivered To: Patient Relationship to Patient: Client Analyst Name: Delivery Method: HAND - Hand Delivered Calista Days: Prior Verbal Notification: Recipient Understood Notice: Yes Recipient Signature: Yes Med Rec Note Co-signed by Attending: Coverage Notice Comment: AZ Ruiz DP export: 01/28/19 1:26 p Patient Name: CONTRERAS SHARMA Page 99738 at 1459 All edits/amendments must be made on the electronic document DICTATION DATE: 01/28/191458 VENDOR MANAGEMENT ASSOCIATE: THIERRY 01/28/191458 RPT#: [id number] DC DATE: STATUS: ADM IN [facility] [address] [place] [address] END OF REPORT
--- NOTE | 2019-01-28 15:16 | MORECARE ---
CASE MANAGEMENT DISCHARGE SUMMARY PATIENT: CONTRERAS SHARMA UNIT: [id number] ADM DATE: 01/25/19 AGE: 78 : 39 SEX: M ROOM/BED: D.2133 AUTHOR: OUSMANE,DOC PHYSICIAN: REFERRING PHYSICIAN: LUTHER BUI MD DATE OF SERVICE: 01/28/19 Discharge Plan Patient Name: CONTRERAS SHARMA Facility: [facility]:[place] : 1940 Planned Disposition: Home Anticipated Discharge Date: 01/28/19 Discharge Date: Expected LOS: 3 Initial Reviewer: [id number] Initial Review Date: 01/28/2019 Generated: 01/28/19 4:15 pm Comments DCP- Discharge Planning Updated by [email or web address]: Jules Acosta on 01/28/19 2:[address] Patient Name: CONTRERAS SHARMA Admission Status: ER Accout number: [id number] Admission Date: 01-25-2019 : 1940 Admission Diagnosis:SHORTNESS OF BREATH Attending: LUTHER BRADEN Current LOS: 3 Anticipated DC Date: 01-28-2019 Planned Disposition: Home Primary Insurance: MEDICARE A & B Discharge Planning Comments: CM MET WITH PT IAND SPOUSE N ROOM TO DISCUSS DISCHARGE PLANNING AND NEEDS. CONTRERAS SHARMA provided verbal consent to discuss current and ongoing needs with/in the presence of: SPOUSE, LALO. PT REPORTS LIVING AT HOME INDEPENDENTLY WITH HIS . PT HAS HOME AND PORTABLE OXYGEN FROM [facility]. PT HAS NO OUTSIDE SERVICES ASSISTING IN THE HOME. CM DISCUSSED AVAILABILITY OF HOME HEALTH, REHAB SERVICES AND MEDICAL EQUIPMENT. PT WANTS TRILOGY FROM [facility], CHOICE SIGNED. REPORTS HIS WILL PICK HIM UP FOR DISCHARGE HOME. IMPORTANT MESSAGE FROM [employer] PROVIDED AND EXPLAINED. CM CALLED [facility], , LEFT MESSAGE FOR MERRY AND PROVIDED REFERRAL INFORMATION. CM FAXED REFERRAL TO [facility], . MERRY WILL PROCESS REFERRAL FOR TRILOGY AND DELIVER TO HOSPITAL ROOM WHEN COMPLETED AND APPROVED. Discharge Coordinator: Jules Acosta DCPIA - Discharge Planning Initial Assessment Updated by [id number]: Jules Acosta on 01/28/19 2:56 pm * Is the patient Alert and Oriented? Yes * How many steps to enter\exit or inside your home? * PCP DR. DUSTIN MCALLISTER * Pharmacy [facility] * Preadmission Environment Home with Family * ADLs Independent * Equipment Oxygen * Other Equipment HOME AND PORTABLE OXYGEN - [facility] * List name and contact numbers for known caregivers / representatives who currently or will assist patient after discharge: LALO SHARMA, SPOUSE, * Verbal permission to speak to the caregivers and representatives has been obtained from the patient. Yes * Community resources currently utilized None * Please name any agencies selected above. NONE * Additional services required to return to the preadmission environment? No * Can the patient safely return to the preadmission environment? Yes * Has this patient been hospitalized within the prior 30 days at any hospital? No Coverage Notice Reviewer: [id number] María Acosta Notice Issued Date-Time: 01/28/2019 14:15 Notice Type: IM Discharge Notice Notice Delivered To: Patient Relationship to Patient: Information Technology Project Manager Name: Delivery Method: HAND - Hand Delivered Calista Days: Prior Verbal Notification: Recipient Understood Notice: Yes Recipient Signature: Yes Med Rec Note Co-signed by Attending: Coverage Notice Comment: Reviewer: FRANKLYN Acosta Notice Issued Date-Time: 01/28/2019 14:15 Notice Type: Patient Choice Letter Notice Delivered To: Patient Relationship to Patient: Information Technology Project Manager Name: Delivery Method: HAND - Hand Delivered Calista Days: Prior Verbal Notification: Recipient Understood Notice: Yes Recipient Signature: Yes Med Rec Note Co-signed by Attending: Coverage Notice Comment: AZ Ruiz DP export: 01/28/19 1:59 p Patient Name: CONTRERAS SHARMA Page [id number] at 1516 All edits/amendments must be made on the electronic document DICTATION DATE: 01/28/19 1515 DRILLER OPERATOR: THIERRY 01/28/19 1515 RPT#: [id number] DC DATE: STATUS: ADM IN [address] [place] [address] END OF REPORT
--- NOTE | 2019-01-28 15:45 | MORECARE ---
CASE MANAGEMENT DISCHARGE SUMMARY PATIENT: CONTRERAS SHARMA UNIT: [id number] ADM DATE: 01/25/19 AGE: 78 : 39 SEX: M ROOM/BED: D.2133 AUTHOR: OUSMANEDOC PHYSICIAN: REFERRING PHYSICIAN: LUTHER BUI MD DATE OF SERVICE: 01/28/19 Discharge Plan Patient Name: CONTRERAS SHARMA Facility: [facility]:[place] : 1940 Planned Disposition: Home Anticipated Discharge Date: 01/28/19 Discharge Date: Expected LOS: 3 Initial Reviewer: [id number] Initial Review Date: 01/28/2019 Generated: 01/28/19 4:44 pm Comments DCP- Discharge Planning Updated by [id number]: Jules Hui on 01/28/19 2:[address] Patient Name: CONTRERAS SHARMA Admission Status: ER Accout number: [id number] Admission Date: 01-25-2019 : 1940 Admission Diagnosis:SHORTNESS OF BREATH Attending: LUTHER BRADEN Current LOS: 3 Anticipated DC Date: 01-28-2019 Planned Disposition: Home Primary Insurance: MEDICARE A & B Discharge Planning Comments: CM MET WITH PT IAND SPOUSE N ROOM TO DISCUSS DISCHARGE PLANNING AND NEEDS. CONTRERAS SHARMA provided verbal consent to discuss current and ongoing needs with/in the presence of: SPOUSE, LALO. PT REPORTS LIVING AT HOME INDEPENDENTLY WITH HIS . PT HAS HOME AND PORTABLE OXYGEN FROM [facility]. PT HAS NO OUTSIDE SERVICES ASSISTING IN THE HOME. CM DISCUSSED AVAILABILITY OF HOME HEALTH, REHAB SERVICES AND MEDICAL EQUIPMENT. PT WANTS TRILOGY FROM [facility], CHOICE SIGNED. REPORTS HIS WILL PICK HIM UP FOR DISCHARGE HOME. IMPORTANT MESSAGE FROM [employer] PROVIDED AND EXPLAINED. CM CALLED [facility], , LEFT MESSAGE FOR MERRY AND PROVIDED REFERRAL INFORMATION. CM FAXED REFERRAL TO [facility], . MERRY WILL PROCESS REFERRAL FOR TRILOGY AND DELIVER TO HOSPITAL ROOM WHEN COMPLETED AND APPROVED. Hebrew Cantor: Jules Hui Appended by Jules Hui on 01/28/2019 15:36 CDT: CM RECEIVED CALL FROM [facility]ERR[facility] OF [facility], PT DOES NOT HAVE A QUALIFYING PCO2 OF 45 OR GREATER ON ABG TESTING FOR TRILOGY MACHINE. MERRY ALSO REVIEWED PREVIOUS PFT RESULTS THAT DID NOT HAVE QUALIFYING RESULT FOR TRILOGY. MERRY ASKED FOR NEW AGB TESTING WHILE PT IS ON NASAL CANNULA. DR. GUPTA NOTIFIED. ORDER FOR NEW ABG TESTING OBTAINED. CM TO FAX NEW ABG TESTING TO [facility] AT [phone], WHEN DOCUMENTED. JULES HUI, CASE MANAGEMENT DCPIA - Discharge Planning Initial Assessment Updated by [email or web address]: Jules Hui on 01/28/19 2:56 pm * Is the patient Alert and Oriented? Yes * How many steps to enter\exit or inside your home? * PCP DR. DUSTIN MCALLISTER * Pharmacy [facility] * Preadmission Environment Home with Family * ADLs Independent * Equipment Oxygen * Other Equipment HOME AND PORTABLE OXYGEN - [facility] * List name and contact numbers for known caregivers / representatives who currently or will assist patient after discharge: LALO SHARMA, SPOUSE, * Verbal permission to speak to the caregivers and representatives has been obtained from the patient. Yes * Community resources currently utilized None * Please name any agencies selected above. NONE * Additional services required to return to the preadmission environment? No * Can the patient safely return to the preadmission environment? Yes * Has this patient been hospitalized within the prior 30 days at any hospital? No Coverage Notice Reviewer: [id number] María Hui Notice Issued Date-Time: 01/28/2019 14:15 Notice Type: IM Discharge Notice Notice Delivered To: Patient Relationship to Patient: Press Feeder Broomcorn Name: Delivery Method: HAND - Hand Delivered Calista Days: Prior Verbal Notification: Recipient Understood Notice: Yes Recipient Signature: Yes Med Rec Note Co-signed by Attending: Coverage Notice Comment: Reviewer: [id number] Torri Hui Notice Issued Date-Time: 01/28/2019 14:15 Notice Type: Patient Choice Letter Notice Delivered To: Patient Relationship to Patient: Press Feeder Broomcorn Name: Delivery Method: HAND - Hand Delivered Calista Days: Prior Verbal Notification: Recipient Understood Notice: Yes Recipient Signature: Yes Med Rec Note Co-signed by Attending: Coverage Notice Comment: AZ Ruiz DP export: 01/28/19 2:16 p Patient Name: CONTRERAS SHARMA Page [id number] at 1545 All edits/amendments must be made on the electronic document DICTATION DATE: 01/28/19 154 TITLE SUPERVISOR: THIERRY 01/28/19 1544 RPT#: [id number] DC DATE: STATUS: ADM IN [facility] [address] [place] [address] END OF REPORT
--- NOTE | 2019-01-28 20:45 | NUR ---
EVENING ROUNDS COMPLETED, VSS, AAOX4, RR EVEN, TR INCREASED 02 HF FROM 8 TO 11 LTRS BECAUSE PT O2SAT WAS 83. PT IS IN NO DISTRESS AT THIS TIME. CALL LIGHT WITHIN REACH. WILL CPOC.
[2019-01-29 04:13] VITALS: BP 127/70
[2019-01-29 06:04] LABS: BASOPHILS 0 % (0-2); EOSINOPHILS 0 % (0-7); HEMATOCRIT 32.1 % (42.0-54.0); HEMOGLOBIN 9.4 g/dL (13.5-17.5); IMMATURE GRANULOCYTES 0.1 % (0-5); LYMPHOCYTES 6.6 % (15-50); MCH 22.6 pg (26.0-34.0); MCHC 29.3 g/dL (31.0-37.0); MCV 77.2 fL (80.0-100.0); MEAN PLATELET VOLUME 8.8 fL (7.4-10.4); MONOCYTES 7.3 % (2-11); PLATELET COUNT 222 10x3/uL (130-400); RBC 4.16 10x6/uL (4.20-6.10); WBC 7.1 10x3/uL (4.8-10.8)
[2019-01-29 06:42] LABS: ANION GAP 12.8 mmol/L (8-16); CALCIUM 8.7 mg/dL (8.5-10.1); CARBON DIOXIDE 28.6 mmol/L (21.0-32.0); CREATININE - SERUM 1.5 mg/dL (0.6-1.3); MAGNESIUM - SERUM 2.3 mg/dL (1.8-2.4); PHOSPHOROUS 4.7 mg/dL (2.5-4.9); POTASSIUM - SERUM 4.4 mmol/L (3.5-5.1)
--- NOTE | 2019-01-29 07:20 | NUR ---
PT SITTING UP IN BED. WITH HOB ELEVATED. PT WANTING COFFEE. STRATEGIC ADVISOR GOT PT A CUP OF COFFEE. PT HAS NO FURTHER NEEDS AT THIS TIME. BED LOW. CL IN REACH.
[2019-01-29 08:00] VITALS: BP 114/54
[2019-01-29 12:00] VITALS: BP 120/66
--- NOTE | 2019-01-29 15:00 | NUR ---
PT SITTING IN BED WITH HOB ELEVATED. AT BEDSIDE. BED LOW. CL IN REACH.
[2019-01-29 16:11] VITALS: BP 111/48
--- NOTE | 2019-01-29 19:35 | NUR ---
REPORT RECIEVED AND RONDING COMPLETE. PATIENT SITTINGUP IN BED, PATIENT HAS A LEFT FOREARM RUNNING ABX AT THIS TIME, PIV IS PATENT AND SHOWING NO S/SX OF INFILTRATION OR INFECTION. PATIENT IS ON HIGH FLOW NASAL CANNULA WITH 02 AT 9L. PATIENT IS A&O X4. PAITENT STATES HE HAS NO NEEDS AT THIS TIME. CALL LIGHT WITHIN REACH AND BED IN LOWEST LOCKED POSITION.
[2019-01-29 20:04] VITALS: BP 131/67
[2019-01-29 23:23] VITALS: BP 120/65
--- NOTE | 2019-01-30 03:06 | NUR ---
TELEMNTRY REMOVED, ASKED PATIENT WHY AND HE STATED NO ONE IS WATCHING IT AND IT IS JUST GETTING IN THE WAY. EXPLAINED THERE SOMEONE ALWAYS WATCHING IT AND THATS HOW I KNEW HE WASNT ON IT. HS SAID BULL HE IS NO LONGER INTRESTED IN WEARING IT. NO OTHER NEEDS OR CONCERNS AT THIS TIME. CALL LIGHT WITHIN REACH AND BED IN LOWEST LOCKED POSITION.
[2019-01-30 04:00] VITALS: BP 102/46
[2019-01-30 05:49] LABS: BASOPHILS 0 % (0-2); EOSINOPHILS 0 % (0-7); HEMATOCRIT 32.5 % (42.0-54.0); HEMOGLOBIN 9.4 g/dL (13.5-17.5); IMMATURE GRANULOCYTES 0.2 % (0-5); LYMPHOCYTES 7.9 % (15-50); MCH 22.2 pg (26.0-34.0); MCHC 28.9 g/dL (31.0-37.0); MCV 76.8 fL (80.0-100.0); MONOCYTES 5.9 % (2-11); PLATELET COUNT 205 10x3/uL (130-400); RBC 4.23 10x6/uL (4.20-6.10); RDW 19.7 % (11.5-14.5)
[2019-01-30 06:05] LABS: WBC 4.4 10x3/uL (4.8-10.8)
[2019-01-30 06:41] LABS: ANION GAP 10.8 mmol/L (8-16); CALCIUM 8.6 mg/dL (8.5-10.1); CARBON DIOXIDE 30.6 mmol/L (21.0-32.0); CREATININE - SERUM 1.4 mg/dL (0.6-1.3); MAGNESIUM - SERUM 2.1 mg/dL (1.8-2.4); PHOSPHOROUS 4.7 mg/dL (2.5-4.9); POTASSIUM - SERUM 4.4 mmol/L (3.5-5.1)
[2019-01-30 08:00] VITALS: BP 89/68
--- NOTE | 2019-01-30 08:00 | NUR ---
ASSESSMENT COMPLETED. ALERT AND ORIENTED. PT IS HARD OF HEARING. UP WITH ASSIST. 02 AT 9 L/M PER NC. USES C PAP PRN. REFUSES TO WEAR MONITOR. WILL MONITOR
[2019-01-30 12:00] VITALS: BP 136/70
[2019-01-30 16:00] VITALS: BP 119/64
--- NOTE | 2019-01-30 17:19 | NUR ---
UP TO BR. GAIT STEADY. NO NEEDS VOICED
--- NOTE | 2019-01-30 19:30 | NUR ---
PT SITTING UP IN BED ALERT AND ORIENTED X4 ON 7L HIGHFLOW. RR EVEN AND UNLABORED. BED LOW CALL LIGHT WITHIN REACH WILL CONTINUE TO MONITOR.
[2019-01-30 20:23] VITALS: BP 124/68
--- NOTE | 2019-01-30 20:57 | NUR ---
PT SITTING UP IN BED ALERT AND ORIENTED X4. PT HAS HARSH COUGH. VITALS STABLE RR EVEN AND UNLABORED AT THIS TIME. BED LOW CALL LIGHT WITHIN REACH. WILL CONTINUE TO MONITOR.
[2019-01-31 00:11] VITALS: BP 127/74
--- NOTE | 2019-01-31 00:48 | NUR ---
I have reviewed this patient and I concur with the Shift Assessment completed by the Licensed Practical Nurse today this shift.
--- NOTE | 2019-01-31 03:05 | NUR ---
PT RESTING IN BED WITH EYES CLOSED. RR EVEN AND UNLABORED. NO S/S OF DISTRESS. BED LOW CALL LIGHT WITHIN REACH. WILL CONTINUE TO MONITOR.
[2019-01-31 04:24] VITALS: BP 122/69
[2019-01-31 06:24] LABS: BASOPHILS 0 % (0-2); EOSINOPHILS 0 % (0-7); HEMATOCRIT 35.1 % (42.0-54.0); HEMOGLOBIN 10.2 g/dL (13.5-17.5); IMMATURE GRANULOCYTES 0.7 % (0-5); LYMPHOCYTES 7.4 % (15-50); MCH 22.7 pg (26.0-34.0); MCHC 29.1 g/dL (31.0-37.0); MEAN PLATELET VOLUME 9.2 fL (7.4-10.4); MONOCYTES 7.2 % (2-11); NEUTROPHILS 84.7 % (40-80); PLATELET COUNT 235 10x3/uL (130-400)
[2019-01-31 06:37] LABS: ANION GAP 11.8 mmol/L (8-16); CALCIUM 9.2 mg/dL (8.5-10.1); CARBON DIOXIDE 31.4 mmol/L (21.0-32.0); CREATININE - SERUM 1.3 mg/dL (0.6-1.3); POTASSIUM - SERUM 4.2 mmol/L (3.5-5.1)
[2019-01-31 06:54] LABS: WBC 5.7 10x3/uL (4.8-10.8)
[2019-01-31 07:53] VITALS: BP 119/73
--- NOTE | 2019-01-31 09:37 | NUR ---
PATIENT IS ALERT AND AWAKE. STANDING WT IS 162. HE REPORTS HE HAS LOST WT. HE WANTS A SHOWER. PHYSICAL THERAPY CAME ROUND AND GOT HIS WEIGHT. PHYSICAL THERAPY WANTED TO GET HIM UP, AND SAID THAT THE PAST FEW DAYS HE HAS BEEN ON HOLD, BECAUSE HIS O2 SATURATION DROPS.
[2019-01-31 11:03] VITALS: BP 137/92
--- NOTE | 2019-01-31 11:25 | NUR ---
DR MEZA ROUNDED AND SAID THAT 88% O2 ON EXERTION AND 90% AT REST IS OK.
[2019-01-31 15:37] VITALS: BP 103/65
--- NOTE | 2019-01-31 16:45 | MORECARE ---
CASE MANAGEMENT DISCHARGE SUMMARY PATIENT: CONTRERAS SHARMA UNIT: [id number] ADM DATE: 01/25/19 AGE: 78 : 39 SEX: M ROOM/BED: D.2133 AUTHOR: MELANIE ROMEO PHYSICIAN: REFERRING PHYSICIAN: LUTHER BUI MD DATE OF SERVICE: 01/31/19 Discharge Plan Patient Name: CONTRERAS SHARMA Facility: [facility]:[place] : 1940 Planned Disposition: Home Anticipated Discharge Date: 01/28/19 Discharge Date: Expected LOS: 3 Initial Reviewer: [id number] Initial Review Date: 01/28/2019 Generated: 01/31/19 5:45 pm Comments DCP- Discharge Planning Updated by [email or web address]: Jules Hui on 01/31/19 3:[address] Patient Name: CONTRERAS SHARMA Encounter No: [id number] : 1940 Primary Insurance: MEDICARE A & B Anticipated DC Date: 01-28-2019 Planned Disposition: Home OR INPATIENT REHAB AT [facility] follow-up note: CM RECEIVED CALL FROM [facility] INPATIENT REHAB ASKING IF PT MAY BE INTERESTED IN INPATIENT REHAB SERVICES. CM MET WITH PT IN ROOM, DISCUSSED REHAB OPTIONS, LOCATIONS AND PROVIDERS. PT WILL CONSIDER REHAB AT [facility] STATING THE DOCTORS ARE NOW CHECKING OUT HIS HEART AND HE DOES NOT KNOW WHEN HE MIGHT BE GETTING OUT OF THE HOSPITAL. IMPORTANT MESSAGE FROM [employer] PROVIDED AND EXPLAINED. CM NOTIFIED [facility] INPATIENT REHAB. PT IS CONSIDERING INPATIENT REHAB AT [facility]. IF PHYSICIAN AGREES WITH NEED OF INPATIENT REHAB, PT WILL REQUIRE ORDER FOR INPATIENT REHAB PRESCREENING. HARVEY Ocasio DCP- Discharge Planning Updated by [id number]: Jules Hui on 01/28/19 2:[address] Patient Name: CONTRERAS SHARMA Admission Status: ER Accout number: [id number] Admission Date: 01-25-2019 : 1940 Admission Diagnosis:SHORTNESS OF BREATH Attending: LUTHER BRADEN Current LOS: 3 Anticipated DC Date: 01-28-2019 Planned Disposition: Home Primary Insurance: MEDICARE A & B Discharge Planning Comments: CM MET WITH PT IAND SPOUSE N ROOM TO DISCUSS DISCHARGE PLANNING AND NEEDS. CONTRERAS SHARMA provided verbal consent to discuss current and ongoing needs with/in the presence of: SPOUSE, LALO. PT REPORTS LIVING AT HOME INDEPENDENTLY WITH HIS . PT HAS HOME AND PORTABLE OXYGEN FROM [facility]. PT HAS NO OUTSIDE SERVICES ASSISTING IN THE HOME. CM DISCUSSED AVAILABILITY OF HOME HEALTH, REHAB SERVICES AND MEDICAL EQUIPMENT. PT WANTS TRILOGY FROM [facility], CHOICE SIGNED. REPORTS HIS WILL PICK HIM UP FOR DISCHARGE HOME. IMPORTANT MESSAGE FROM [employer] PROVIDED AND EXPLAINED. CM CALLED [facility], , LEFT MESSAGE FOR MERRY AND PROVIDED REFERRAL INFORMATION. CM FAXED REFERRAL TO [facility], . MERRY WILL PROCESS REFERRAL FOR TRILOGY AND DELIVER TO HOSPITAL ROOM WHEN COMPLETED AND APPROVED. Internal Control Specialist: Jules Hui Appended by Jules Hui on 01/28/2019 15:36 CDT: CM RECEIVED CALL FROM MERRY OF [facility], PT DOES NOT HAVE A QUALIFYING PCO2 OF 45 OR GREATER ON ABG TESTING FOR TRILOGY MACHINE. MERRY ALSO REVIEWED PREVIOUS PFT RESULTS THAT DID NOT HAVE QUALIFYING RESULT FOR TRILOGY. MERRY ASKED FOR NEW AGB TESTING WHILE PT IS ON NASAL CANNULA. DR. GUPTA NOTIFIED. ORDER FOR NEW ABG TESTING OBTAINED. CM TO FAX NEW ABG TESTING TO [facility] AT [phone], WHEN DOCUMENTED. JULES HUI, CASE MANAGEMENT DCPIA - Discharge Planning Initial Assessment Updated by [id number]: Jules Hui on 01/28/19 2:56 pm * Is the patient Alert and Oriented? Yes * How many steps to enter\exit or inside your home? * PCP DR. DUSTIN MCALLISTER * Pharmacy [facility] * Preadmission Environment Home with Family * ADLs Independent * Equipment Oxygen * Other Equipment HOME AND PORTABLE OXYGEN - [facility] * List name and contact numbers for known caregivers / representatives who currently or will assist patient after discharge: LALO SHARMA, SPOUSE, * Verbal permission to speak to the caregivers and representatives has been obtained from the patient. Yes * Community resources currently utilized None * Please name any agencies selected above. NONE * Additional services required to return to the preadmission environment? No * Can the patient safely return to the preadmission environment? Yes * Has this patient been hospitalized within the prior 30 days at any hospital? No Coverage Notice Reviewer: [id number] Hui Notice Issued Date-Time: 01/28/2019 14:15 Notice Type: IM Discharge Notice Notice Delivered To: Patient Relationship to Patient: Electrotype Caster Name: Delivery Method: HAND - Hand Delivered Calista Days: Prior Verbal Notification: Recipient Understood Notice: Yes Recipient Signature: Yes Med Rec Note Co-signed by Attending: Coverage Notice Comment: Reviewer: FRANKLYN Hui Notice Issued Date-Time: 01/28/2019 14:15 Notice Type: Patient Choice Letter Notice Delivered To: Patient Relationship to Patient: Electrotype Caster Name: Delivery Method: HAND - Hand Delivered Calista Days: Prior Verbal Notification: Recipient Understood Notice: Yes Recipient Signature: Yes Med Rec Note Co-signed by Attending: Coverage Notice Comment: [place] Reviewer: FRANKLYN Hui Notice Issued Date-Time: 01/31/2019 15:30 Notice Type: IM Discharge Notice Notice Delivered To: Patient Relationship to Patient: Electrotype Caster Name: Delivery Method: HAND - Hand Delivered Calista Days: Prior Verbal Notification: Recipient Understood Notice: Yes Recipient Signature: Yes Med Rec Note Co-signed by Attending: Coverage Notice Comment: Last DP export: 01/28/19 2:45 p Patient Name: CONTRERAS SHARMA Page 99922 at 1645 All edits/amendments must be made on the electronic document DICTATION DATE: 01/31/191643 LURER: THIERRY 01/31/191643 RPT#: [id number] [place] DATE: STATUS: ADM IN [facility] [address] [place] [address] END OF REPORT
--- NOTE | 2019-01-31 16:56 | MORECARE ---
CASE MANAGEMENT DISCHARGE SUMMARY PATIENT: CONTRERAS SHARMA UNIT: [id number] ADM DATE: 01/25/19 AGE: 78 : 38 SEX: M ROOM/BED: D.2133 AUTHOR: MELANIE ROMEO PHYSICIAN: REFERRING PHYSICIAN: LUTHER BUI MD DATE OF SERVICE: 01/31/19 Discharge Plan Patient Name: CONTRERAS SHARMA Facility: [facility]:[place] : 1940 Planned Disposition: Home Anticipated Discharge Date: 01/28/19 Discharge Date: Expected LOS: 3 Initial Reviewer: [email or web address] Initial Review Date: 01/28/2019 Generated: 01/31/19 5:55 pm Comments DCP- Discharge Planning Updated by [email or web address]: Jules Hui on 01/31/19 3:[address] Patient Name: CONTRERAS SHARMA Encounter No: [id number] : 1940 Primary Insurance: MEDICARE A & B Anticipated DC Date: 01-28-2019 Planned Disposition: Home OR INPATIENT REHAB AT [facility] follow-up note: CM RECEIVED CALL FROM [facility] INPATIENT REHAB ASKING IF PT MAY BE INTERESTED IN INPATIENT REHAB SERVICES. CM MET WITH PT IN ROOM, DISCUSSED REHAB OPTIONS, LOCATIONS AND PROVIDERS. PT WILL CONSIDER REHAB AT [facility] STATING THE DOCTORS ARE NOW CHECKING OUT HIS HEART AND HE DOES NOT KNOW WHEN HE MIGHT BE GETTING OUT OF THE HOSPITAL. IMPORTANT MESSAGE FROM MEDICARE PROVIDED AND EXPLAINED. CM NOTIFIED [facility] INPATIENT REHAB. PT IS NOT QUALIFYING FOR TRILOGY AT THIS TIME. PT IS CONSIDERING INPATIENT REHAB AT [place]. IF PHYSICIAN AGREES WITH NEED OF INPATIENT REHAB, PT WILL REQUIRE ORDER FOR INPATIENT REHAB PRESCREENING. HARVEY Ocasio DCP- Discharge Planning Updated by [id number]: Jules Hui on 01/28/19 2:[address] Patient Name: CONTRERAS SHARMA Admission Status: ER Accout number: [id number] Admission Date: 01-25-2019 : 1940 Admission Diagnosis:SHORTNESS OF BREATH Attending: LUTHER BRADEN Current LOS: 3 Anticipated DC Date: 01-28-2019 Planned Disposition: Home Primary Insurance: MEDICARE A & B Discharge Planning Comments: CM MET WITH PT IAND SPOUSE N ROOM TO DISCUSS DISCHARGE PLANNING AND NEEDS. CONTRERAS SHARMA provided verbal consent to discuss current and ongoing needs with/in the presence of: SPOUSE, LALO. PT REPORTS LIVING AT HOME INDEPENDENTLY WITH HIS . PT HAS HOME AND PORTABLE OXYGEN FROM [facility]. PT HAS NO OUTSIDE SERVICES ASSISTING IN THE HOME. CM DISCUSSED AVAILABILITY OF HOME HEALTH, REHAB SERVICES AND MEDICAL EQUIPMENT. PT WANTS TRILOGY FROM [facility], CHOICE SIGNED. REPORTS HIS WILL PICK HIM UP FOR DISCHARGE HOME. IMPORTANT MESSAGE FROM MEDICARE PROVIDED AND EXPLAINED. MAURA CALLED [employer] (acquired by [employer] in 2014)E, , LEFT MESSAGE FOR MERRY AND PROVIDED REFERRAL INFORMATION. CM FAXED REFERRAL TO [facility] (acquired by [employer] in 2014)E, . MERRY WILL PROCESS REFERRAL FOR TRILOGY AND DELIVER TO HOSPITAL ROOM WHEN COMPLETED AND APPROVED. Sheet Metal Duct Installer: Jules Hui Appended by Jules Hui on 01/28/2019 15:36 CDT: CM RECEIVED CALL FROM MERRY OF [facility], PT DOES NOT HAVE A QUALIFYING PCO2 OF 45 OR GREATER ON ABG TESTING FOR TRILOGY MACHINE. MERRY ALSO REVIEWED PREVIOUS PFT RESULTS THAT DID NOT HAVE QUALIFYING RESULT FOR TRILOGY. MERRY ASKED FOR NEW AGB TESTING WHILE PT IS ON NASAL CANNULA. DR. GUPTA NOTIFIED. ORDER FOR NEW ABG TESTING OBTAINED. CM TO FAX NEW ABG TESTING TO [facility] AT [phone], WHEN DOCUMENTED. JULES HUI, CASE MANAGEMENT DCPIA - Discharge Planning Initial Assessment Updated by [id number]: Jules Hui on 01/28/19 2:56 pm * Is the patient Alert and Oriented? Yes * How many steps to enter\exit or inside your home? * PCP DR. DUSTIN MCALLISTER * Pharmacy [facility] * Preadmission Environment Home with Family * ADLs Independent * Equipment Oxygen * Other Equipment HOME AND PORTABLE OXYGEN - [facility] * List name and contact numbers for known caregivers / representatives who currently or will assist patient after discharge: LALO SHARMA, SPOUSE, * Verbal permission to speak to the caregivers and representatives has been obtained from the patient. Yes * Community resources currently utilized None * Please name any agencies selected above. NONE * Additional services required to return to the preadmission environment? No * Can the patient safely return to the preadmission environment? Yes * Has this patient been hospitalized within the prior 30 days at any hospital? No Coverage Notice Reviewer: FRANKLYN Hui Notice Issued Date-Time: 01/31/2019 15:30 Notice Type: IM Discharge Notice Notice Delivered To: Patient Relationship to Patient: Assistant Designer Name: Delivery Method: HAND - Hand Delivered Calista Days: Prior Verbal Notification: Recipient Understood Notice: Yes Recipient Signature: Yes Med Rec Note Co-signed by Attending: Coverage Notice Comment: Reviewer: FRANKLYN Hui Notice Issued Date-Time: 01/28/2019 14:15 Notice Type: IM Discharge Notice Notice Delivered To: Patient Relationship to Patient: Assistant Designer Name: Delivery Method: HAND - Hand Delivered Calista Days: Prior Verbal Notification: Recipient Understood Notice: Yes Recipient Signature: Yes Med Rec Note Co-signed by Attending: Coverage Notice Comment: Reviewer: FRANKLYN Hui Notice Issued Date-Time: 01/28/2019 14:15 Notice Type: Patient Choice Letter Notice Delivered To: Patient Relationship to Patient: Assistant Designer Name: Delivery Method: HAND - Hand Delivered Calista Days: Prior Verbal Notification: Recipient Understood Notice: Yes Recipient Signature: Yes Med Rec Note Co-signed by Attending: Coverage Notice Comment: [place] Ruiz DP export: 01/31/19 3:45 p Patient Name: CONTRERAS SHARMA Page [id number] at 1656 All edits/amendments must be made on the electronic document DICTATION DATE: 01/31/191654 REAL ESTATE APPRAISER SUPERVISOR: THIERRY 01/31/191654 RPT#: [id number] DE DATE: STATUS: ADM IN [facility] [address] [place] [address] END OF REPORT
[2019-01-31 17:40] VITALS: Ht 170.2 cm; Wt 73.6 kg
--- NOTE | 2019-01-31 18:34 | NUR ---
B/P IS 118/62 AND HR IS 100.
--- NOTE | 2019-01-31 18:43 | NUR ---
GAVE HALF THE DOSE OF DIGOXIN AND B/P IS NOW 96/63 AND HR IS 95 SINUS RHYTHUM. I WILL NOT GIVE THE SECOND HALF.
--- NOTE | 2019-01-31 19:11 | NUR ---
IV REMOVED THAT WAS INFILTRATED. CATH INTACT. NEW IV START IN LEFT FOREARM 22G ONE STICK.
--- NOTE | 2019-01-31 19:26 | NUR ---
AWAKE WITH O2 AT 5L HF PT STATES HE WILL NOT BEING WEARING HIS CPAP LUNGS ARE DEMINISHED SKIN WARM AND DRY BOWEL SOUNDS X4 BED IS LOW AND LOCKED CAQLL LIGHT IS WITH PT
[2019-01-31 20:00] VITALS: BP 117/66
[2019-02-01] VITALS: BP 127/76
--- NOTE | 2019-02-01 04:49 | NUR ---
I have reviewed this patient and I concur with the Shift Assessment completed by the Licensed Practical Nurse today this shift.
[2019-02-01 05:52] LABS: BASOPHILS 0 % (0-2); EOSINOPHILS 0 % (0-7); HEMATOCRIT 35.3 % (42.0-54.0); HEMOGLOBIN 10.3 g/dL (13.5-17.5); IMMATURE GRANULOCYTES 0.7 % (0-5); LYMPHOCYTES 9.2 % (15-50); MCH 22.8 pg (26.0-34.0); MCHC 29.2 g/dL (31.0-37.0); MCV 78.3 fL (80.0-100.0); MEAN PLATELET VOLUME 9.3 fL (7.4-10.4); MONOCYTES 7.9 % (2-11); NEUTROPHILS 82.2 % (40-80); PLATELET COUNT 230 10x3/uL (130-400); RBC 4.51 10x6/uL (4.20-6.10); RDW 19.9 % (11.5-14.5); WBC 5.4 10x3/uL (4.8-10.8)
[2019-02-01 06:20] LABS: ANION GAP 10.9 mmol/L (8-16); CALCIUM 9.2 mg/dL (8.5-10.1); CARBON DIOXIDE 32.9 mmol/L (21.0-32.0); CREATININE - SERUM 1.4 mg/dL (0.6-1.3); POTASSIUM - SERUM 4.8 mmol/L (3.5-5.1)
[2019-02-01 08:00] VITALS: BP 127/77
--- NOTE | 2019-02-01 09:39 | NUR ---
AM MEDS GIVEN AT THIS TIME. PT IN BED,A/O X4, RESP A LITTLE SHALLOW ON 5L HF. LT FA IV PATENT AND SL. MONITOR SHOWING SR WITH RATE OF 68. PT DENIES ANY NEEDS AT THIS TIME. CALL LIGHT IN REACH, NAD NOTED,W ILL CONTINUE TO MONITOR.
[2019-02-01 12:24] VITALS: BP 115/65
--- NOTE | 2019-02-01 13:38 | CN ---
PATIENT NAME:CONTRERAS SHARMA MEDICAL RECORD: [id number] : 38 LOCATION:[facility] D.2133 ADMIT DATE: 01/25/19 ACCOUNT: [id number] CONSULTING PHYSICIAN: STEVE CORBETT MD REFERRING PHYSICIAN: LUTHER BUI MD DATE OF CONSULTATION: 01/31/2019 CARDIOLOGY CONSULTATION DIAGNOSES: 1. Atrial fibrillation with rapid ventricular response. 2. Palpitations. 3. Chronic obstructive pulmonary disease. 4. Bronchitis. 5. Smoking history. 6. Coronary artery disease. 7. Peripheral vascular disease. 8. Hypertension. HISTORY OF PRESENT ILLNESS: Mr. Sharma presents with shortness of breath, dyspnea on exertion, found to have COPD, bronchitis/pneumonia, being treated for this. He went into atrial fibrillation with rapid ventricular response today, heart rates in the 140s, systolic blood pressure around 110-120. He is on Bystolic 2.5 mg a day for hypertension. He is not anything for atrial fibrillation. He has not had a history of atrial fibrillation. He does have a history of coronary artery disease. He is not having any anginal symptomatology. PHYSICAL EXAMINATION: CONSTITUTIONAL/GENERAL APPEARANCE: Well nourished, well developed, appears stated age. EYES: Lids and conjunctivae noninjected. No discharge. No pallor. ENT: Lips within normal limit. No cyanosis. No pallor. NECK: Carotid arteries, bilateral normal upstroke. No bruits. No thrills. No jugular venous pressure or distention. CERVICAL LYMPH NODES: Nontender. Nonenlarged. THYROID: Not enlarged. No nodules. CARDIOVASCULAR: Irregularly irregular, tachycardic with atrial fibrillation. RESPIRATORY: Respiratory effort, unlabored. Normal curvature. No thoracic deformity. No chest wall tenderness. Percussion, resonant. Auscultation, clear. No wheezes, no rales, no rhonchi. ABDOMEN: Soft, nondistended, nontender. No abdominal pain, no vomiting and normal appetite. MUSCULOSKELETAL: No joint tenderness, normal gait, normal tone. SKIN: Warm and dry. OVERALL IMPRESSION: Atrial fibrillation with rapid ventricular response in a patient with COPD and lung disease. Here, he had an echocardiogram, which was overall normal, but it is not surprising. He has the atrial fibrillation. We will give him IV digoxin 0.5 mg times 1 and give him sotalol 120 mg b.i.d. We will see how this does with his atrial fibrillation. TRANSINT:[id number] Voice Confirmation ID: [id number] DOCUMENT ID: [id number] CONSULT REPORT [id number] CONTRERAS SHARMA JEFFREY MD at 1338 CC: [id number] DICTATION DATE: 01/31/19 174 AERIAL GUNNER: 02/01/19 0155 ADM IN [place] [id number] [place] [id number]
[2019-02-01 16:19] VITALS: BP 109/60
--- NOTE | 2019-02-01 17:12 | NUR ---
IRON HUNG AT THIS TIME. PT EATING DINNER, DENIES ANY NEEDS AT THIS TIME. EMPTIED 150CC OF YELLOW URINE OUT OF URINAL. CALL LIGHT IN REACH, BEDSIDE RAILS X2, NAD NOTED.
--- NOTE | 2019-02-01 19:39 | NUR ---
ROUNDING COMPLETE AND REPORT RECIEVED. PATIENT SITTING UP IN BED, PATIENT HAS HIGH FLOW NASAL CANNULA ON AND RECIEVING O2 AT 5L. PATIENT HAS A LEFT FOREARM PIV THAT IS SALINE LOCKED, PIV IS SHOWING NO S/SX OF INFECTION OR INFILTRATION AT THIS TIME. PATIENT STATES ASHWIN EVERYDAU HE IS FEELING BETTER AND BETTER. PATIENT HAS A ABD HERNIA, ABD IS ROUND AND DISTENDED. CHARLYNET ASKED FOR ICECREAM, I RETURNED WITH IT. PATIENT STATES HE HAS NO OTHER NEEDS AT THIS TIME. CALL LIGHT WITHIN REACH AND BED IN LOWEST LOCKED POSITION. PATIENT IS NOT SHOWING ANY S/SX OF DITRESS AT THIS TIME.
[2019-02-01 20:15] VITALS: BP 117/67
[2019-02-02 00:02] VITALS: BP 121/76
[2019-02-02 04:00] VITALS: BP 121/72
--- NOTE | 2019-02-02 04:33 | NUR ---
I have reviewed this patient and I concur with the Shift Assessment completed by the Licensed Practical Nurse today this shift.
[2019-02-02 06:40] LABS: ANION GAP 11.1 mmol/L (8-16); CALCIUM 9.5 mg/dL (8.5-10.1); CARBON DIOXIDE 32.7 mmol/L (21.0-32.0); CREATININE - SERUM 1.3 mg/dL (0.6-1.3)
[2019-02-02 06:49] LABS: BASOPHILS 0 % (0-2); EOSINOPHILS 0 % (0-7); HEMATOCRIT 37.3 % (42.0-54.0); HEMOGLOBIN 10.9 g/dL (13.5-17.5); IMMATURE GRANULOCYTES 0.4 % (0-5); LYMPHOCYTES 9.6 % (15-50); MCH 22.7 pg (26.0-34.0); MCHC 29.2 g/dL (31.0-37.0); MCV 77.5 fL (80.0-100.0); MEAN PLATELET VOLUME 9.5 fL (7.4-10.4); MONOCYTES 6.7 % (2-11); NEUTROPHILS 83.3 % (40-80); PLATELET COUNT 253 10x3/uL (130-400); POTASSIUM - SERUM 3.8 mmol/L (3.5-5.1); RBC 4.81 10x6/uL (4.20-6.10); RDW 19.9 % (11.5-14.5); WBC 5.1 10x3/uL (4.8-10.8)
[2019-02-02 08:45] VITALS: BP 99/63
--- NOTE | 2019-02-02 10:43 | NUR ---
PT UP WALKING WITH PHYSICAL THERAPY.
[2019-02-02 11:45] VITALS: BP 137/79
--- NOTE | 2019-02-02 14:16 | NUR ---
I have reviewed this patient and I concur with the Shift Assessment completed by the Licensed Practical Nurse today this shift.
[2019-02-02 16:37] VITALS: BP 125/77
[2019-02-02 20:00] VITALS: BP 119/68
--- NOTE | 2019-02-02 20:00 | NUR ---
PT A/OX4, BRP AD ELI, O2 @ 5L VIA HFNC, L PIV INTACT AND SL, NO C/O @ THIS TIME
[2019-02-03] VITALS: BP 153/90
[2019-02-03 05:13] LABS: BASOPHILS 0 % (0-2); EOSINOPHILS 0.2 % (0-7); HEMATOCRIT 39.4 % (42.0-54.0); HEMOGLOBIN 11.7 g/dL (13.5-17.5); IMMATURE GRANULOCYTES 0.5 % (0-5); LYMPHOCYTES 17.7 % (15-50); MCH 22.9 pg (26.0-34.0); MCHC 29.7 g/dL (31.0-37.0); MCV 77.3 fL (80.0-100.0); MEAN PLATELET VOLUME 9.2 fL (7.4-10.4); MONOCYTES 12.3 % (2-11); NEUTROPHILS 69.3 % (40-80); PLATELET COUNT 230 10x3/uL (130-400); RDW 19.8 % (11.5-14.5)
[2019-02-03 05:22] LABS: WBC 6.7 10x3/uL (4.8-10.8)
[2019-02-03 05:44] LABS: ANION GAP 10.1 mmol/L (8-16); CALCIUM 9.3 mg/dL (8.5-10.1); CARBON DIOXIDE 33.5 mmol/L (21.0-32.0); CREATININE - SERUM 1.4 mg/dL (0.6-1.3); POTASSIUM - SERUM 3.6 mmol/L (3.5-5.1)
--- NOTE | 2019-02-03 07:35 | NUR ---
REPORT RECIEVED. PT IS SITTING FOWLERS RECIEVING UPDRAFT AT THIS TIME. HE IS WEARING 5L NC. PT HAS A L FA PIV THAT IS SL. BED LOCKED AND IN LOWEST POSITION. CALL LIGHT WITHIN REACH. WILL CTM
[2019-02-03 08:34] VITALS: BP 102/57
[2019-02-03 12:30] VITALS: BP 112/55
--- NOTE | 2019-02-03 14:08 | NUR ---
Nutrition Follow-up: Pt reports good/fair appetite/PO intake. Noted possible d/c tomorrow. Diet: Cardiac PO intake: 66% avg x 7 meals Wt: 162# Last BM: 02/03 Labs reviewed Meds noted: Lasix, Prednisone Continue current diet as tolerated. RD following.
--- NOTE | 2019-02-03 15:22 | NUR ---
PT COMPLAINING FROM PAINS OF BEING CONSTIPATED. CALLED JANNET TO OBTAIN AN ORDER FOR SOMETHING. RECIEVED AN ORDER FOR MAG CITRATE 300MG X1.
[2019-02-03 16:50] VITALS: BP 118/62
--- NOTE | 2019-02-03 19:30 | NUR ---
REPORT RECEIVED, WILL CONTINUE POC. PATIENT IS A/OX4, UP WITH ASSIST. PATIENT SITTING UP AT BEDSIDE, NO S/S OF DISTRESS OBSERVED, RR UNEVEN, SLIGHTLY LABORED ON 5L O2 VIA NC. IV TO LT FA SL, PATENT, DRSG C/D/I. PATIENT DENIES NEEDS AT THIS TIME. CL IN REACH, BED LOCKED AND LOWERED. WILL CTM.
[2019-02-03 20:00] VITALS: BP 108/64
[2019-02-04] VITALS: BP 108/64; BP 128/81
[2019-02-04 04:00] VITALS: BP 117/72
[2019-02-04 06:15] LABS: ANION GAP 9.6 mmol/L (8-16); CARBON DIOXIDE 36.8 mmol/L (21.0-32.0); CREATININE - SERUM 1.4 mg/dL (0.6-1.3); POTASSIUM - SERUM 3.4 mmol/L (3.5-5.1)
[2019-02-04 06:16] LABS: BASOPHILS 0.1 % (0-2); EOSINOPHILS 0 % (0-7); HEMATOCRIT 41.4 % (42.0-54.0); HEMOGLOBIN 11.7 g/dL (13.5-17.5); IMMATURE GRANULOCYTES 0.7 % (0-5); LYMPHOCYTES 14.5 % (15-50); MCH 23.1 pg (26.0-34.0); MCHC 28.3 g/dL (31.0-37.0); MEAN PLATELET VOLUME 9.5 fL (7.4-10.4); MONOCYTES 11.8 % (2-11); NEUTROPHILS 72.9 % (40-80); PLATELET COUNT 230 10x3/uL (130-400); RBC 5.06 10x6/uL (4.20-6.10); RDW 20.6 % (11.5-14.5)
[2019-02-04 06:41] LABS: MCV 81.8 fL (80.0-100.0)
--- NOTE | 2019-02-04 06:50 | NUR ---
I have reviewed this patient and I concur with the Shift Assessment completed by the Licensed Practical Nurse today this shift.
--- NOTE | 2019-02-04 07:30 | NUR ---
REPORT RECIEVED. PT SITTING UP IN BED CURRENTLY GETTING AND UPDRAFT. HE HAS A L FA PIV THAT IS SL. RR EVEN AND SHALLOW. HE IS ON 5L VIA NC. HE IS A & O. BED LOCKED AND IN LOWEST POSITION, CALL LIGHT WITHIN REACH.
[2019-02-04 08:03] VITALS: BP 118/66
--- NOTE | 2019-02-04 11:41 | MORECARE ---
CASE MANAGEMENT DISCHARGE SUMMARY PATIENT: CONTRERAS SHARMA UNIT: [id number] ADM DATE: 01/25/19 AGE: 78 : 39 SEX: M ROOM/BED: D.2133 AUTHOR: MELANIE ROMEO PHYSICIAN: REFERRING PHYSICIAN: LUTHER BUI MD DATE OF SERVICE: 02/04/19 Discharge Plan Patient Name: CONTRERAS SHARMA Facility: [facility]:[place] : 1940 Planned Disposition: Home Anticipated Discharge Date: 01/28/19 Discharge Date: Expected LOS: 3 Initial Reviewer: [email or web address] Initial Review Date: 01/28/2019 Generated: 02/04/19 12:41 pm DCP- Discharge Planning Updated by [id number]: Jules Hui on 01/31/19 3:[address] Patient Name: CONTRERAS SHARMA Encounter No: [id number] : 1940 Primary Insurance: MEDICARE A & B Anticipated DC Date: 01-28-2019 Planned Disposition: Home OR INPATIENT REHAB AT [facility] follow-up note: CM RECEIVED CALL FROM [facility] INPATIENT REHAB ASKING IF PT MAY BE INTERESTED IN INPATIENT REHAB SERVICES. CM MET WITH PT IN ROOM, DISCUSSED REHAB OPTIONS, LOCATIONS AND PROVIDERS. PT WILL CONSIDER REHAB AT [facility] STATING THE DOCTORS ARE NOW CHECKING OUT HIS HEART AND HE DOES NOT KNOW WHEN HE MIGHT BE GETTING OUT OF THE HOSPITAL. IMPORTANT MESSAGE FROM MEDICARE PROVIDED AND EXPLAINED. CM NOTIFIED [facility] INPATIENT REHAB. PT IS NOT QUALIFYING FOR TRILOGY AT THIS TIME. PT IS CONSIDERING INPATIENT REHAB AT [facility]. IF PHYSICIAN AGREES WITH NEED OF INPATIENT REHAB, PT WILL REQUIRE ORDER FOR INPATIENT REHAB PRESCREENING. HARVYE Ocasio DCP- Discharge Planning Updated by [id number]: Jules Hui on 01/28/19 2:[address] Patient Name: CONTRERAS SHARMA Admission Status: ER Accout number: [id number] Admission Date: 01-25-2019 : 1940 Admission Diagnosis:SHORTNESS OF BREATH Attending: LUTHER BRADEN Current LOS: 3 Anticipated DC Date: 01-28-2019 Planned Disposition: Home Primary Insurance: MEDICARE A & B Discharge Planning Comments: CM MET WITH PT IAND SPOUSE N ROOM TO DISCUSS DISCHARGE PLANNING AND NEEDS. CONTRERAS SHARMA provided verbal consent to discuss current and ongoing needs with/in the presence of: SPOUSE, LALO. PT REPORTS LIVING AT HOME INDEPENDENTLY WITH HIS . PT HAS HOME AND PORTABLE OXYGEN FROM [facility]. PT HAS NO OUTSIDE SERVICES ASSISTING IN THE HOME. CM DISCUSSED AVAILABILITY OF HOME HEALTH, REHAB SERVICES AND MEDICAL EQUIPMENT. PT WANTS TRILOGY FROM [facility], CHOICE SIGNED. REPORTS HIS WILL PICK HIM UP FOR DISCHARGE HOME. IMPORTANT MESSAGE FROM MEDICARE PROVIDED AND EXPLAINED. CM CALLED [facility] [employer], , LEFT MESSAGE FOR MERRY AND PROVIDED REFERRAL INFORMATION. CM FAXED REFERRAL TO [facility], . MERRY WILL PROCESS REFERRAL FOR TRILOGY AND DELIVER TO HOSPITAL ROOM WHEN COMPLETED AND APPROVED. Store Consultant: Jules Hui Appended by Jules Hui on 01/28/2019 15:36 CDT: CM RECEIVED CALL FROM MERRY OF [facility], PT DOES NOT HAVE A QUALIFYING PCO2 OF 45 OR GREATER ON ABG TESTING FOR TRILOGY MACHINE. MERRY ALSO REVIEWED PREVIOUS PFT RESULTS THAT DID NOT HAVE QUALIFYING RESULT FOR TRILOGY. MERRY ASKED FOR NEW AGB TESTING WHILE PT IS ON NASAL CANNULA. DR. GUPTA NOTIFIED. ORDER FOR NEW ABG TESTING OBTAINED. CM TO FAX NEW ABG TESTING TO [employer] AT [phone], WHEN DOCUMENTED. JULES HUI, CASE MANAGEMENT DCPIA - Discharge Planning Initial Assessment Updated by [id number]: Jules Hui on 01/28/19 2:56 pm * Is the patient Alert and Oriented? Yes * How many steps to enter\exit or inside your home? * PCP DR. DUSTIN MCALLISTER * Pharmacy [facility] * Preadmission Environment Home with Family * ADLs Independent * Equipment Oxygen * Other Equipment HOME AND PORTABLE OXYGEN - [facility] * List name and contact numbers for known caregivers / representatives who currently or will assist patient after discharge: LALO SHARMA, SPOUSE, * Verbal permission to speak to the caregivers and representatives has been obtained from the patient. Yes * Community resources currently utilized None * Please name any agencies selected above. NONE * Additional services required to return to the preadmission environment? No * Can the patient safely return to the preadmission environment? Yes * Has this patient been hospitalized within the prior 30 days at any hospital? No Coverage Notice Reviewer: [id number] María Hui Notice Issued Date-Time: 01/28/2019 14:15 Notice Type: IM Discharge Notice Notice Delivered To: Patient Relationship to Patient: Patient Service Rep Name: Delivery Method: HAND - Hand Delivered Calista Days: Prior Verbal Notification: Recipient Understood Notice: Yes Recipient Signature: Yes Med Rec Note Co-signed by Attending: Coverage Notice Comment: Reviewer: [email or web address] María Hui Notice Issued Date-Time: 01/28/2019 14:15 Notice Type: Patient Choice Letter Notice Delivered To: Patient Relationship to Patient: Patient Service Rep Name: Delivery Method: HAND - Hand Delivered Calista Days: Prior Verbal Notification: Recipient Understood Notice: Yes Recipient Signature: Yes Med Rec Note Co-signed by Attending: Coverage Notice Comment: [place] Reviewer: [email or web address] Torri Hui Notice Issued Date-Time: 01/31/2019 15:30 Notice Type: IM Discharge Notice Notice Delivered To: Patient Relationship to Patient: Patient Service Rep Name: Delivery Method: HAND - Hand Delivered Calista Days: Prior Verbal Notification: Recipient Understood Notice: Yes Recipient Signature: Yes Med Rec Note Co-signed by Attending: Coverage Notice Comment: Reviewer: [email or web address] Torri Carrillo Notice Issued Date-Time: 02/04/2019 11:35 Notice Type: IM Discharge Notice Notice Delivered To: Patient Relationship to Patient: Patient Service Rep Name: Delivery Method: HAND - Hand Delivered Calista Days: Prior Verbal Notification: Recipient Understood Notice: Yes Recipient Signature: Yes Med Rec Note Co-signed by Attending: Coverage Notice Comment: Last DP export: 01/31/19 3:56 p Patient Name: CONTRERAS SHARMA Page 93552 at 1141 All edits/amendments must be made on the electronic document DICTATION DATE: 02/04/19 1141 HAND FRAME SURGICAL ELASTIC KNITTER: THIERRY 02/04/19 1141 RPT#: [id number] DC DATE: STATUS: ADM IN [facility] [address] [place] [address] END OF REPORT
[2019-02-04 11:55] VITALS: BP 124/70
--- NOTE | 2019-02-04 12:01 | NUR ---
REHAB PRESCREENING CONSULT RECIEVED AND THE CHART HAS BEEN REVIEWED. HE IS A NEW ADMIT AND IS NOT MEDICALLY STABLE. HE HAS NOT HAD A PT OR OT EVAL ORDERED AND WOULD HAVE TO BE WILLING TO PARTICIPATE WITH THE 3 HRS OF THERAPY EVERYDAY 5 DAYS A WEEK TO QUALIFY FOR THE ARU PROGRAM. WILL DISCUSS WITH THE CM NINO STUBBS. MARIAN OTTO RN CLINICAL LIAISON, REHAB
--- NOTE | 2019-02-04 12:10 | NUR ---
Rehab Prescreening Consult recieved and the chart has been reviewed. He has ambulated 250 ft with PT and is independent in the room. He is to high level for the ARU at this time. Discussed with the CM Dawn. Maday Odom RN CL
[2019-02-04 15:55] VITALS: BP 132/67
--- NOTE | 2019-02-04 16:27 | NUR ---
I have reviewed this patient and I concur with the Shift Assessment completed by the Licensed Practical Nurse today this shift.
--- NOTE | 2019-02-04 19:44 | NUR ---
REPORT RECIEVED AND ROUNDING COMPLETE. PATINET SITTING UP IN BED WATCHING FOOTBALL. PATIENT IS RECIEVEING 02 VIA HIGH FLOW NASAL CANNULA AT 5L. PATIENT HAS A LEFT FOREARM PIV THAT IS SALINE LOCKED. PIV IS DISPLAYING NO S/SX OF INFILTRATION OR INFECTION AT THIS TIME. PATIENT IS NOT SHOWING ANY S/SX OF DISTRESS AT THIS TIME. CALL LIGHT WITHIN REACHA ND BED IN LOWEST LOCKED POSITION.
[2019-02-04 20:00] VITALS: BP 100/65
[2019-02-05] VITALS: BP 110/55
--- NOTE | 2019-02-05 02:00 | NUR ---
I have reviewed this patient and I concur with the Shift Assessment completed by the Licensed Practical Nurse today this shift.
--- NOTE | 2019-02-05 03:41 | NUR ---
PATIENT SITTING UP IN BED WATCHING TV. PATIENT STATES HE HAS NO NEEDS AT THIS TIME. CALL LIGHT WITHIN REACH AND BED IN LOWEST POSITION.
[2019-02-05 04:00] VITALS: BP 152/50
--- NOTE | 2019-02-05 07:46 | NUR ---
PT AWAKE AND ORIENTED, NO COMPLAINTS/CONCERNS, ALL QUESTIONS ANSWERED. CL IN REACH, SRX2.
[2019-02-05 08:13] VITALS: BP 112/68
[2019-02-05] MEDS ORDERED: BETAPACE 80 MG80 MG PO (09:48)
[2019-02-05] MEDS ORDERED: ATROVENT 0.02%2.5 ML UPD (09:48)
[2019-02-05] MEDS ORDERED: DALIRESP500 MCG PO (09:49)
[2019-02-05] MEDS ORDERED: LEVOFLOXACIN500 MG PO (09:49)
[2019-02-05] MEDS ORDERED: PROTONIX40 MG PO (09:50)
[2019-02-05] MEDS ORDERED: LASIX40 MG PO (09:50)
[2019-02-05] MEDS ORDERED: PULMICORT0.5 MG/21 UPD (09:50)
[2019-02-05] MEDS ORDERED: K-DUR20 MEQ PO (09:51)
--- NOTE | 2019-02-05 13:42 | NUR ---
[facility]
--- NOTE | 2019-02-07 08:18 | MORECARE ---
CASE MANAGEMENT DISCHARGE SUMMARY PATIENT: CONTRERAS SHARMA UNIT: [id number] ADM DATE: 01/25/19 AGE: 78 : 38 SEX: M ROOM/BED: D.2133 AUTHOR: OUSMANE,DOC PHYSICIAN: REFERRING PHYSICIAN: LUTHER BUI MD DATE OF SERVICE: 02/07/19 Discharge Plan Patient Name: CONTRERAS SHARMA Facility: [facility]:[place] : 1940 Planned Disposition: Home Anticipated Discharge Date: 01/28/19 Discharge Date: 02/05/2019 Expected LOS: 3 Initial Reviewer: [email or web address] Initial Review Date: 01/28/2019 Generated: 02/07/19 9:17 am Comments DCP- Discharge Planning Updated by [email or web address]: Hemalatha Smith on 02/07/19 7:[address] LATE ENTRY 02/05/19 CM RECEIVED REQUEST FOR NEBULIZER WITH DISCHARGED PLANNED FOR THURSDAY, 2018. TC TO [facility] WITH MESSAGE LEFT FOR BAND AID MACHINE OPERATOR. NEBULIZER WAS DELIVERED TO THE PATIENT'S ROOM. CM FAXED THE CLINICAL INFORMATION, MD ORDER AND FACE SHEET TO [facility] THIS AM FOR OFFICE STAFF. DCP- Discharge Planning Updated by [email or web address]: Jules Acosta on 01/31/19 3:[address] Patient Name: CONTRERAS SHARMA Encounter No: [id number] : 1940 Primary Insurance: MEDICARE A & B Anticipated DC Date: 01-28-2019 Planned Disposition: Home OR INPATIENT REHAB AT [facility] DC follow-up note: CM RECEIVED CALL FROM [facility] IN[facility]IENT [facility] ASKING IF PT MAY BE INTERESTED IN INPATIENT REHAB SERVICES. MAURA MET WITH PT IN ROOM, DISCUSSED REHAB OPTIONS, LOCATIONS AND PROVIDERS. PT WILL CONSIDER REHAB AT [facility] STATING THE DOCTORS ARE NOW CHECKING OUT HIS HEART AND HE DOES NOT KNOW WHEN HE MIGHT BE GETTING OUT OF THE HOSPITAL. IMPORTANT MESSAGE FROM MEDICARE PROVIDED AND EXPLAINED. CM NOTIFIED [facility] INPATIENT REHAB. PT IS NOT QUALIFYING FOR TRILOGY AT THIS TIME. PT IS CONSIDERING INPATIENT REHAB AT [facility]. IF PHYSICIAN AGREES WITH NEED OF INPATIENT REHAB, PT WILL REQUIRE ORDER FOR INPATIENT REHAB PRESCREENING. HARVEY Pedraza MANAGEMENT DCP- Discharge Planning Updated by [id number]: Jules Acosta on 01/28/19 2:[address] Patient Name: CONTRERAS SHARMA Admission Status: ER Accout number: [id number] Admission Date: 01-25-2019 : 1940 Admission Diagnosis:SHORTNESS OF BREATH Attending: LUTHER BRADEN Current LOS: 3 Anticipated DC Date: 01-28-2019 Planned Disposition: Home Primary Insurance: MEDICARE A & B Discharge Planning Comments: CM MET WITH PT IAND SPOUSE N ROOM TO DISCUSS DISCHARGE PLANNING AND NEEDS. CONTRERAS SHARMA provided verbal consent to discuss current and ongoing needs with/in the presence of: SPOUSE, LALO. PT REPORTS LIVING AT HOME INDEPENDENTLY WITH HIS . PT HAS HOME AND PORTABLE OXYGEN FROM [facility]. PT HAS NO OUTSIDE SERVICES ASSISTING IN THE HOME. CM DISCUSSED AVAILABILITY OF HOME HEALTH, REHAB SERVICES AND MEDICAL EQUIPMENT. PT WANTS TRILOGY FROM [facility], CHOICE SIGNED. REPORTS HIS WILL PICK HIM UP FOR DISCHARGE HOME. IMPORTANT MESSAGE FROM MEDIC[employer] PROVIDED AND EXPLAINED. CM CALLED [facility], , LEFT MESSAGE FOR MERRY AND PROVIDED REFERRAL INFORMATION. CM FAXED REFERRAL TO [facility], . MERRY WILL PROCESS REFERRAL FOR TRILOGY AND DELIVER TO HOSPITAL ROOM WHEN COMPLETED AND APPROVED. Knitter Helper: Jules Acosta Appended by Jules Acosta on 01/28/2019 15:36 CDT: CM RECEIVED CALL FROM MERRY OF [facility], PT DOES NOT HAVE A QUALIFYING PCO2 OF 45 OR GREATER ON ABG TESTING FOR TRILOGY MACHINE. MERRY ALSO REVIEWED PREVIOUS PFT RESULTS THAT DID NOT HAVE QUALIFYING RESULT FOR TRILOGY. MERRY ASKED FOR NEW AGB TESTING WHILE PT IS ON NASAL CANNULA. DR. GUPTA NOTIFIED. ORDER FOR NEW ABG TESTING OBTAINED. CM TO FAX NEW ABG TESTING TO [facility] AT [phone], WHEN DOCUMENTED. HARVEY PEDRAZA DCPIA - Discharge Planning Initial Assessment Updated by [id number]: Jules Acosta on 01/28/19 2:56 pm * Is the patient Alert and Oriented? Yes * How many steps to enter\exit or inside your home? * PCP DR. DUSTIN MCALLISTER * Pharmacy [facility], [address] * Preadmission Environment Home with Family * ADLs Independent * Equipment Oxygen * Other Equipment HOME AND PORTABLE OXYGEN - [facility] * List name and contact numbers for known caregivers / representatives who currently or will assist patient after discharge: LALO SHARMA, SPOUSE, * Verbal permission to speak to the caregivers and representatives has been obtained from the patient. Yes * Community resources currently utilized None * Please name any agencies selected above. NONE * Additional services required to return to the preadmission environment? No * Can the patient safely return to the preadmission environment? Yes * Has this patient been hospitalized within the prior 30 days at any hospital? No Coverage Notice Reviewer: [id number] Torri Acosta Notice Issued Date-Time: 01/28/2019 14:15 Notice Type: IM Discharge Notice Notice Delivered To: Patient Relationship to Patient: Materials Development Engineer Name: Delivery Method: HAND - Hand Delivered Calista Days: Prior Verbal Notification: Recipient Understood Notice: Yes Recipient Signature: Yes Med Rec Note Co-signed by Attending: Coverage Notice Comment: Reviewer: [id number] María Acosta Notice Issued Date-Time: 01/28/2019 14:15 Notice Type: Patient Choice Letter Notice Delivered To: Patient Relationship to Patient: Materials Development Engineer Name: Delivery Method: HAND - Hand Delivered Calista Days: Prior Verbal Notification: Recipient Understood Notice: Yes Recipient Signature: Yes Med Rec Note Co-signed by Attending: Coverage Notice Comment: [place] Reviewer: [id number] Torri Acosta Notice Issued Date-Time: 01/31/2019 15:30 Notice Type: IM Discharge Notice Notice Delivered To: Patient Relationship to Patient: Materials Development Engineer Name: Delivery Method: HAND - Hand Delivered Calista Days: Prior Verbal Notification: Recipient Understood Notice: Yes Recipient Signature: Yes Med Rec Note Co-signed by Attending: Coverage Notice Comment: Reviewer: [id number] Torri Carrillo Notice Issued Date-Time: 02/04/2019 11:35 Notice Type: IM Discharge Notice Notice Delivered To: Patient Relationship to Patient: Materials Development Engineer Name: Delivery Method: HAND - Hand Delivered Calista Days: Prior Verbal Notification: Recipient Understood Notice: Yes Recipient Signature: Yes Med Rec Note Co-signed by Attending: Coverage Notice Comment: Last DP export: 02/04/19 10:41 a Patient Name: CONTRERAS SHARMA Page [id number] at 0818 All edits/amendments must be made on the electronic document DICTATION DATE: 02/07/19816 INDEPENDENT MARKETING CONSULTANT: THIERRY 02/07/19816 RPT#: [id number] DC DATE:02/05/19 STATUS: DIS IN [facility] [address] [place] [address] END OF REPORT
== END 2019-02-05 13:42 | disposition home or self-care (01) | DRG 177 ==
LOC: D.ER 13:32 → D.M2 21:05
PROVIDERS: Family Medicine; ADMIT Family Medicine; ATTEND Family Medicine
DX: J15.6 Pneumonia due to other Gram-negative bacteria (principal); J96.21 Acute and chronic respiratory failure with hypoxia; S22.32XA Fracture of one rib, left side, initial encounter for closed fracture; S22.31XA Fracture of one rib, right side, initial encounter for closed fracture; E87.1 Hypo-osmolality and hyponatremia; R04.2 Hemoptysis; I11.0 Hypertensive heart disease with heart failure; J13 Pneumonia due to Streptococcus pneumoniae; I50.9 Heart failure, unspecified; J43.9 Emphysema, unspecified; I25.10 Atherosclerotic heart disease of native coronary artery without angina pectoris; K21.9 Gastro-esophageal reflux disease without esophagitis; D50.9 Iron deficiency anemia, unspecified; M19.90 Unspecified osteoarthritis, unspecified site; I71.2 Thoracic aortic aneurysm, without rupture; K44.9 Diaphragmatic hernia without obstruction or gangrene; Z99.81 Dependence on supplemental oxygen; R04.0 Epistaxis; N40.0 Benign prostatic hyperplasia without lower urinary tract symptoms; X58.XXXA Exposure to other specified factors, initial encounter; M85.80 Other specified disorders of bone density and structure, unspecified site; I48.91 Unspecified atrial fibrillation; I73.9 Peripheral vascular disease, unspecified; Z87.891 Personal history of nicotine dependence

== ENCOUNTER 2019-02-17 11:45 | Emergency (ER) | payer MEDICARE, OTHER ==
[~2019-02-17] VITALS: Ht 170.2 cm; Wt 69.1 kg
[~2019-02-17 11:45] MED LIST changes: +ATROVENT 0.02%2.5 ML UPD; +BETAPACE 80 MG80 MG PO; +DALIRESP500 MCG PO; +K-DUR20 MEQ PO; +LASIX40 MG PO; +LEVOFLOXACIN500 MG PO; +PROTONIX40 MG PO; +PULMICORT0.5 MG/21 UPD
[2019-02-17 12:03] VITALS: Ht 170.2 cm; Wt 69.1 kg
[2019-02-17 13:02] LABS: APPEARANCE HAZY (CLEAR); BILIRUBIN NEGATIVE (NEGATIVE); COLOR YELLOW (YELLOW); GLUCOSE NEGATIVE (NEGATIVE); KETONE NEGATIVE (NEGATIVE); NITRITE NEGATIVE (NEGATIVE); PROTEIN TRACE mg/dL (NEGATIVE); SPECIFIC GRAVITY 1.015 (1.005-1.020); UROBILINOGEN NORMAL (NORMAL)
[2019-02-17 13:03] LABS: BACTERIA NONE SEEN /hpf (NEGATIVE); EPITHELIAL CELLS NSEEN /hpf (0-5); WHITE CELLS - URINE 0-5 /hpf (NEGATIVE)
[2019-02-17 13:11] LABS: BASOPHILS 0.2 % (0-2); EOSINOPHILS 4.1 % (0-7); HEMATOCRIT 34.9 % (42.0-54.0); HEMOGLOBIN 10.2 g/dL (13.5-17.5); IMMATURE GRANULOCYTES 0.2 % (0-5); LYMPHOCYTES 13.7 % (15-50); MCH 24.3 pg (26.0-34.0); MCHC 29.2 g/dL (31.0-37.0); MCV 83.1 fL (80.0-100.0); MEAN PLATELET VOLUME 8.5 fL (7.4-10.4); MONOCYTES 7.3 % (2-11); NEUTROPHILS 74.5 % (40-80); PLATELET COUNT 196 10x3/uL (130-400); WBC 4.1 10x3/uL (4.8-10.8)
[2019-02-17 13:27] LABS: ALBUMIN 2.5 g/dL (3.4-5.0); ALKALINE PHOSPHATASE 128 U/L (46-116); ALT (SGPT) 19 U/L (10-68); BILIRUBIN - TOTAL 0.71 mg/dL (0.2-1.3); CALC OSMOLALITY 277 mosm/kg (275-300); CALCIUM 8.9 mg/dL (8.5-10.1); CHLORIDE - SERUM 100 mmol/L (98-107); CREATININE - SERUM 1.2 mg/dL (0.6-1.3); GLUCOSE 112 mg/dL (74-106); POTASSIUM - SERUM 3.7 mmol/L (3.5-5.1); PROTEIN - SERUM 7.5 g/dL (6.4-8.2); SODIUM 138 mmol/L (136-145); UREA NITROGEN 14 mg/dL (7-18); eGFR NON AFRICAN AMERICAN 62 mL/min (90-120)
[2019-02-17 13:30] LABS: AMYLASE - SERUM 51 U/L (25-115); LIPASE 258 U/L (73-393); TROPONIN-I < 0.017 ng/mL (0.000-0.060)
[2019-02-17] MEDS ORDERED: LEVSIN/ANASP0.125 MG PO (15:13)
[2019-02-17] MEDS ORDERED: ZOFRAN ODT4 MG/UDTAB PO (15:13)
[2019-02-17] MEDS ORDERED: GOLYTELY SOLU4000 ML PO (15:22)
[2019-02-17] MEDS ORDERED: ULTRAM50 MG PO (15:22)
[2019-02-17 19:19] VITALS: BP 122/62
== END 2019-02-17 15:52 | disposition home or self-care (01) ==
LOC: D.ER 11:45
PROVIDERS: Family Medicine
DX: R10.9 Unspecified abdominal pain (principal); K59.00 Constipation, unspecified

== ENCOUNTER 2019-10-12 23:47 | Inpatient (IN) | payer MEDICARE, OTHER ==
[~2019-10-12] VITALS: Ht 170.2 cm; Wt 77.1 kg
[~2019-10-12 23:47] MED LIST changes: +GOLYTELY SOLU4000 ML PO; +LEVSIN/ANASP0.125 MG PO; +ULTRAM50 MG PO; +ZOFRAN ODT4 MG/UDTAB PO
[2019-10-13] LABS: HEMATOCRIT 39.5 % (42.0-54.0); LYMPHOCYTES 17.9 % (15-50); MCH 21.6 pg (26.0-34.0); MCHC 27.8 g/dL (31.0-37.0); MCV 77.6 fL (80.0-100.0); MEAN PLATELET VOLUME 8.7 fL (7.4-10.4); NEUTROPHILS 73.2 % (40-80); PLATELET COUNT 289 10x3/uL (130-400); RBC 5.09 10x6/uL (4.20-6.10); WBC 4.2 10x3/uL (4.8-10.8)
[2019-10-13 00:10] LABS: APTT 28.1 SECONDS (22.8-39.4)
[2019-10-13 00:11] LABS: D-DIMER-QUANTITATIVE 0.84 ug/mLFEU (0.20-0.54); INR 0.94 (0.85-1.17); PROTIME 12.6 SECONDS (11.6-15.0)
[2019-10-13 00:32] LABS: ALBUMIN 3.7 g/dL (3.4-5.0); ALKALINE PHOSPHATASE 97 U/L (30-120); ALT (SGPT) 19 U/L (10-68); AMYLASE - SERUM 76 U/L (25-115); BILIRUBIN - TOTAL 0.82 mg/dL (0.2-1.3); CALCIUM 9.3 mg/dL (8.5-10.1); CARBON DIOXIDE 22.7 mmol/L (21.0-32.0); CHLORIDE - SERUM 100 mmol/L (98-107); CKMB 1.7 U/L (0.0-3.6); CREATINE KINASE 55 UL (21-232); CREATININE - SERUM 1.5 mg/dL (0.6-1.3); LIPASE 166 U/L (73-393); POTASSIUM - SERUM 4.3 mmol/L (3.5-5.1); PRO BNP 4069 pg/mL (0-450); PROTEIN - SERUM 8.6 g/dL (6.4-8.2); SODIUM 135 mmol/L (136-145); TROPONIN-I 0.035 ng/mL (0.000-0.060); eGFR NON AFRICAN AMERICAN 48 mL/min (90-120)
[2019-10-13 00:40] LABS: CALC OSMOLALITY 273 mosm/kg (275-300); GLUCOSE 161 mg/dL (74-106); UREA NITROGEN 16 mg/dL (7-18)
--- NOTE | 2019-10-13 01:35 | NUR ---
PT BACK FROM ORDERED CT SCAN AT THIS TIME.
--- NOTE | 2019-10-13 04:00 | NUR ---
ADMITTED TO ROOM ALERT ND ORIENTIATED,REPORTS FEELING MUCH BETTER AND BREATHIGN EASIER, O2 IN USE AT 4 L NC, SEE ASSESSEMENT, CALL FLO EAST
--- NOTE | 2019-10-13 04:55 | NUR ---
STRIPING MACHINE OPERATOR REPORTED 18 BEAT RUN V TACH, WILL MONITOR, DENIES PAIN OR INCREASED SOB,
[2019-10-13 06:00] VITALS: BP 117/48; BMI 26.7
[2019-10-13 06:41] LABS: BASOPHILS 0.4 % (0-2); EOSINOPHILS 2.1 % (0-7); HEMATOCRIT 33.3 % (42.0-54.0); HEMOGLOBIN 9.2 g/dL (13.5-17.5); IMMATURE GRANULOCYTES 0.4 % (0-5); LYMPHOCYTES 19.2 % (15-50); MCH 21.5 pg (26.0-34.0); MCHC 27.6 g/dL (31.0-37.0); MCV 77.8 fL (80.0-100.0); MEAN PLATELET VOLUME 9.1 fL (7.4-10.4); MONOCYTES 13.4 % (2-11); NEUTROPHILS 64.5 % (40-80); PLATELET COUNT 276 10x3/uL (130-400); RBC 4.28 10x6/uL (4.20-6.10); WBC 4.8 10x3/uL (4.8-10.8)
--- NOTE | 2019-10-13 07:00 | NUR ---
ALLISON FARAH NOTIFIED OF ELEVATED TROPONIN, ORDERS RECIEVED FOR CONSULT TO PULMONOLOGY AND CARDIOLOGY NOW
[2019-10-13 07:19] LABS: ALBUMIN 3.2 g/dL (3.4-5.0); ANION GAP 12.3 mmol/L (8-16); BILIRUBIN - TOTAL 0.68 mg/dL (0.2-1.3); CALCIUM 8.8 mg/dL (8.5-10.1); CARBON DIOXIDE 25.7 mmol/L (21.0-32.0); CREATININE - SERUM 1.6 mg/dL (0.6-1.3); PROTEIN - SERUM 7.4 g/dL (6.4-8.2)
[2019-10-13 07:26] LABS: TROPONIN-I 5.858 ng/mL (0.000-0.060)
[2019-10-13 08:00] VITALS: BP 115/93
--- NOTE | 2019-10-13 09:30 | NUR ---
OFF FLOOR TO SURGERY SUITE FOR PROCEDURE AT THIS TIME
[2019-10-13 12:31] VITALS: Ht 170.2 cm; Wt 77.1 kg
[2019-10-13 13:31] VITALS: BP 114/65
[2019-10-13 16:00] VITALS: BP 105/60
--- NOTE | 2019-10-13 16:22 | NUR ---
I have reviewed this patient and I concur with the Shift Assessment completed by the Licensed Practical Nurse today this shift.
[2019-10-13 17:51] LABS: % SATURATION 6 % (15-55); IRON 25 ug/dl (35-150); TOTAL IRON BIND CAPACITY 395 ug/dl (260-445); UNSAT IRON BIND CAPACITY 370 ug/dl (150-375)
[2019-10-13 20:00] VITALS: BP 103/48
--- NOTE | 2019-10-13 20:00 | NUR ---
PATIENT RESTING IN BED WATCHING TV. NO S/S OF ACUTE DISTRESS. NO C/O AT THIS TIME. PATIENT IS ON 5L HIGH FLOW O2 NASAL CANNULA. PATIENT IS ON TELEMETRY. PATIENT HAS A LEFT FOREARM IV, SALINE LOC. IV IS PATENT WITHOUT REDNESS, SWELLING, OR TENDERNESS. PATIENT IS COUGHING SOME, BUT NO SPUTUM IS COMING UP. PATIENT USES URNINAL AND ASSIST TO THE BATHROOM. CALL LIGHT WITHIN REACH. WILL CONTINUE TO MONITOR.
--- NOTE | 2019-10-14 02:12 | NUR ---
I have reviewed this patient and I concur with the Shift Assessment completed by the Licensed Practical Nurse today this shift.
[2019-10-14 07:02] LABS: BASOPHILS 0 % (0-2); EOSINOPHILS 0 % (0-7); HEMOGLOBIN 8.6 g/dL (13.5-17.5); IMMATURE GRANULOCYTES 0.1 % (0-5); LYMPHOCYTES 4.3 % (15-50); MCH 21.2 pg (26.0-34.0); MCHC 26.9 g/dL (31.0-37.0); MONOCYTES 4.3 % (2-11); NEUTROPHILS 91.3 % (40-80); PLATELET COUNT 267 10x3/uL (130-400); RBC 4.05 10x6/uL (4.20-6.10); RDW 19.9 % (11.5-14.5)
[2019-10-14 07:13] LABS: WBC 8.2 10x3/uL (4.8-10.8)
[2019-10-14 07:14] LABS: ALBUMIN 3.4 g/dL (3.4-5.0); ANION GAP 16.1 mmol/L (8-16); BILIRUBIN - TOTAL 0.83 mg/dL (0.2-1.3); CALCIUM 8.7 mg/dL (8.5-10.1); CARBON DIOXIDE 23.6 mmol/L (21.0-32.0); CREATININE - SERUM 1.8 mg/dL (0.6-1.3); MAGNESIUM - SERUM 1.8 mg/dL (1.8-2.4); PHOSPHOROUS 3.8 mg/dL (2.5-4.9); PROTEIN - SERUM 7.6 g/dL (6.4-8.2)
[2019-10-14 07:15] LABS: POTASSIUM - SERUM 4.7 mmol/L (3.5-5.1)
--- NOTE | 2019-10-14 07:23 | NUR ---
HE IS SETTING ON THE SIDE OF THE BED READING THE NEWSPAPER. WEARING 9 L HIGH FLOW O2. THE CALL LIGHT IS WITHIN REACH.
[2019-10-14 08:00] VITALS: BP 122/55
--- NOTE | 2019-10-14 09:39 | OP ---
PATIENT NAME: CONTRERAS SHARMA MEDICAL RECORD: [id number] :[birth year] LOCATION:D[id number] ADMISSION DATE:10/13/19 SURGEON: MICHEAL MEYER MD DATE OF OPERATION: 10/13/2019 PREOPERATIVE DIAGNOSIS: Colonic intussusception. POSTOPERATIVE DIAGNOSIS: Nearly obstructing colonic mass at 40 cm. ANESTHESIA: General. COMPLICATIONS: None. SPECIMENS: A 8 cm x 4 cm x 4 cm colonic mass pathology. Frozen section shows villous adenocarcinoma. Case was contaminated. ESTIMATED BLOOD LOSS: Minimal. OPERATIVE COURSE: After consent was obtained, the patient was taken to the operating room and placed in supine position on the operating table. Next, general anesthesia was given. A timeout was taken to confirm the correct patient and procedure. The patient was then placed in lithotomy position. A colonoscopy was performed without bowel prep. The scope was advanced to 40 cm at which time a large nearly obstructing colon mass was identified. It was connected to a stalk. We were able to get past the lesion and advanced to the cecum. We slowly withdrew the scope from the cecum back to the mass, which was at 40 cm. We were able to use the lasso and ligate the stalk at the colonic mucosa. A basket was used to retrieve the specimen, which was sent for frozen section and permanent pathology. During the procedure, the report came back as villous adenocarcinoma. The stalk was closed with 2 ligaclips. It was also stained with 10 cc of Anu ink in 2 locations. At this time, the colon was decompressed. The scope was removed. At the end of the case, all needle and instrument counts were correct. No complications occurred. The patient was transferred to recovery room in satisfactory condition. TRANSINT:[id number] Voice Confirmation ID: [id number] DOCUMENT ID: [id number] MICHEAL MEYER MD at 0939 CC: [id number] DICTATION DATE: 10/13/19 1204 SENIOR PROJECT ENGINEER: 10/13/19 1759 [place] [address]
[2019-10-14 12:00] VITALS: BP 110/64
--- NOTE | 2019-10-14 12:45 | NUR ---
Nutrition Follow-up: Spoke with patient. He is still NPO but is wanting his diet advanced. POD 1 colonoscopy decompression and biopsy. Plans for sips of clear liquids and popsicles per Dr. Colon notes. Recommend continue to ADAT. RD following.
[2019-10-14 16:00] VITALS: BP 119/60
[2019-10-14 20:00] VITALS: BP 98/55
--- NOTE | 2019-10-15 02:50 | NUR ---
RESTING IN BED WITH NO NEEDS AT THIS TIME IN TO LEFT AC INTACT AND PATEN. CALL LIGHT IN REACH.
[2019-10-15 07:01] LABS: BASOPHILS 0 % (0-2); EOSINOPHILS 0 % (0-7); HEMATOCRIT 28.9 % (42.0-54.0); IMMATURE GRANULOCYTES 0.4 % (0-5); LYMPHOCYTES 7.9 % (15-50); MCH 21.7 pg (26.0-34.0); MCHC 27.7 g/dL (31.0-37.0); MCV 78.3 fL (80.0-100.0); MEAN PLATELET VOLUME 8.5 fL (7.4-10.4); MONOCYTES 6.6 % (2-11); NEUTROPHILS 85.1 % (40-80); PLATELET COUNT 227 10x3/uL (130-400); RBC 3.69 10x6/uL (4.20-6.10)
[2019-10-15 07:09] LABS: WBC 4.7 10x3/uL (4.8-10.8)
[2019-10-15 07:27] LABS: ANION GAP 11.9 mmol/L (8-16); BILIRUBIN - TOTAL 0.62 mg/dL (0.2-1.3); CALCIUM 8.6 mg/dL (8.5-10.1); CARBON DIOXIDE 27.5 mmol/L (21.0-32.0); CREATININE - SERUM 1.7 mg/dL (0.6-1.3); POTASSIUM - SERUM 4.4 mmol/L (3.5-5.1)
[2019-10-15 07:28] LABS: MAGNESIUM - SERUM 2.5 mg/dL (1.8-2.4); PHOSPHOROUS 5.2 mg/dL (2.5-4.9)
[2019-10-15 08:00] VITALS: BP 113/60
--- NOTE | 2019-10-15 08:08 | NUR ---
PT RESTING COMFORTABLY WITH EYES CLOSED, BREATHING EVEN AND UNLABORED UPON ENTERING. AROUSES EASILY TO VOICE. MORNING MEDICATION GIVEN AT THIS TIME, NO DIFFICULTIES. DENIES ANY NEEDS. BED IN LOWEST POSITION, BED RAILS X2, CALL LIGHT WITHIN REACH. WILL CONTINUE TO MONITOR.
[2019-10-15 10:40] VITALS: BP 113/60
--- NOTE | 2019-10-15 11:10 | NUR ---
ADMINISTERED MEDICATIONS VIA IV AND NEW NITRO PATCH PLACED ON RIGHT CHEST. PT IS SITTING UPRIGHT IN BEDSIDE CHAIR, RESTING COMFORTABLY. DENIES ANY NEEDS. WILL CONTINUE TO MONITOR.
--- NOTE | 2019-10-15 12:00 | NUR ---
PT IV DC FROM LEFT AC DUE TO LEAKING. CATHETER TIP INTACT, COVERED SITE WITH GAUZE AND TAPE. RESTARTED IV TO LEFT FOREARM, 20 GAUGE, FLUSHES WELL WITH GOOD BLOOD RETURN. TOLERATED WELL.
[2019-10-15 12:49] VITALS: BP 116/57
--- NOTE | 2019-10-15 13:31 | NUR ---
PT C/O OF UPPER LEFT QUAD PAIN. STATES HE THINKS ITS HIS HEART. VS 121/73 P 118 R 18 94% ON 5LNC. NO SWEATING OR NAUSEA NOTED. COLOR PINK. ALLISON MORFIN APN AWARE.
--- NOTE | 2019-10-15 14:16 | NUR ---
ADMINISTERED PRN MORPHINE FOR 9/10 PAIN IN THE ABDOMEN. SITTING ON BEDSIDE, VERY UNCOMFORTABLE BUT DENIES ANY OTHER NEEDS. WILL REASSES AND CONTINUE TO MONITOR.
[2019-10-15 14:57] LABS: CREATINE KINASE 134 UL (21-232)
[2019-10-15 15:00] LABS: TROPONIN-I 0.694 ng/mL (0.000-0.060)
--- NOTE | 2019-10-15 16:18 | NUR ---
I have reviewed this patient and I concur with the Shift Assessment completed by the Licensed Practical Nurse today this shift.
--- NOTE | 2019-10-15 17:08 | NUR ---
PT REFUSED MEDICATION. EDUCATED PT ON BENEFITS OF IRON, WANTS TO "SKIP IT FOR NOW".
[2019-10-15 17:25] VITALS: BP 116/58
--- NOTE | 2019-10-15 19:39 | NUR ---
PLACED NITRO PATCH TO LEFT CHEST.
[2019-10-15 20:00] VITALS: BP 100/57
[2019-10-16] VITALS: BP 93/44
[2019-10-16 01:39] LABS: BASOPHILS 0 % (0-2); EOSINOPHILS 0 % (0-7); HEMATOCRIT 32.9 % (42.0-54.0); IMMATURE GRANULOCYTES 0.2 % (0-5); LYMPHOCYTES 4.2 % (15-50); MCH 21.5 pg (26.0-34.0); MCHC 27.4 g/dL (31.0-37.0); MCV 78.7 fL (80.0-100.0); MEAN PLATELET VOLUME 8.9 fL (7.4-10.4); MONOCYTES 6.9 % (2-11); NEUTROPHILS 88.7 % (40-80); PLATELET COUNT 259 10x3/uL (130-400); RBC 4.18 10x6/uL (4.20-6.10); RDW 20.1 % (11.5-14.5); WBC 5.5 10x3/uL (4.8-10.8)
--- NOTE | 2019-10-16 02:00 | NUR ---
CURRENT TROPONIN 3.369 - PT DENIES PAIN. RESTING COMFORTABLY. CARDIOLOGY FOLLOWING.
[2019-10-16 02:06] LABS: ALBUMIN 3.1 g/dL (3.4-5.0); ALKALINE PHOSPHATASE 65 U/L (30-120); ALT (SGPT) 24 U/L (10-68); BILIRUBIN - TOTAL 0.63 mg/dL (0.2-1.3); CALC OSMOLALITY 282 mosm/kg (275-300); CALCIUM 8.9 mg/dL (8.5-10.1); CHLORIDE - SERUM 102 mmol/L (98-107); CKMB 7.3 U/L (0.0-3.6); CREATINE KINASE 112 UL (21-232); CREATININE - SERUM 1.4 mg/dL (0.6-1.3); GLUCOSE 134 mg/dL (74-106); MAGNESIUM - SERUM 2.6 mg/dL (1.8-2.4); PHOSPHOROUS 3.3 mg/dL (2.5-4.9); POTASSIUM - SERUM 4.8 mmol/L (3.5-5.1); PROTEIN - SERUM 7.3 g/dL (6.4-8.2); SODIUM 135 mmol/L (136-145); UREA NITROGEN 43 mg/dL (7-18); eGFR NON AFRICAN AMERICAN 52 mL/min (90-120)
[2019-10-16 02:08] LABS: TROPONIN-I 3.369 ng/mL (0.000-0.060)
--- NOTE | 2019-10-16 02:30 | NUR ---
EKG DONE AND SCANNED INTO CHART. LEFT CHEST NITRO PATCH REMOVED AND NEW NITRO PLACED ON RIGHT CHEST. DENIES PAIN. PT RESTING COMFORTABLY. WILL CONTINUE TO MONITOR.
[2019-10-16 04:00] VITALS: BP 100/50
[2019-10-16 08:00] VITALS: BP 115/47
--- NOTE | 2019-10-16 09:24 | NUR ---
HE IS SETTING UP IN THE CHAIR, HAS BEEN WALKING AROUND IN THE ROOM. HIS IV IN THE LEFT ARM IS LEAKING, REMOVED IT. HE DENIES ANY PAIN. THE CALL LIGHT IS WITHIN REACH. HE HAS HAD A BM THIS MORNING. HE IS TOLERATING HIS FULL LIQUID DIET.
[2019-10-16 12:13] VITALS: BP 116/68
[2019-10-16 16:23] VITALS: BP 113/72
[2019-10-16 20:00] VITALS: BP 118/63
[2019-10-17] VITALS: BP 106/58
[2019-10-17 04:00] VITALS: BP 90/39
[2019-10-17 05:07] LABS: BASOPHILS 0 % (0-2); EOSINOPHILS 0.2 % (0-7); HEMATOCRIT 32.1 % (42.0-54.0); HEMOGLOBIN 8.9 g/dL (13.5-17.5); IMMATURE GRANULOCYTES 0.2 % (0-5); LYMPHOCYTES 28.1 % (15-50); MCH 21.5 pg (26.0-34.0); MCHC 27.7 g/dL (31.0-37.0); MCV 77.7 fL (80.0-100.0); MEAN PLATELET VOLUME 8.7 fL (7.4-10.4); MONOCYTES 13.6 % (2-11); NEUTROPHILS 57.9 % (40-80); PLATELET COUNT 249 10x3/uL (130-400); RBC 4.13 10x6/uL (4.20-6.10)
[2019-10-17 05:29] LABS: BILIRUBIN - TOTAL 0.68 mg/dL (0.2-1.3); CALCIUM 8.5 mg/dL (8.5-10.1); CARBON DIOXIDE 27.2 mmol/L (21.0-32.0); CREATININE - SERUM 1.4 mg/dL (0.6-1.3); MAGNESIUM - SERUM 2.3 mg/dL (1.8-2.4); PHOSPHOROUS 3.1 mg/dL (2.5-4.9); POTASSIUM - SERUM 4.2 mmol/L (3.5-5.1); PROTEIN - SERUM 6.6 g/dL (6.4-8.2)
[2019-10-17 08:25] VITALS: BP 122/64
[2019-10-17 12:17] VITALS: BP 121/65
--- NOTE | 2019-10-17 14:41 | NUR ---
Nutrition follow-up: Diet advanced to full liquids with po intake 100% of meals Pt reports he is tolerating full liquids; surgeon has advanced pts diet to as tolerated today Labs reviewed Wt: 170# RDN following.
[2019-10-17 16:59] VITALS: BP 126/50
[2019-10-17 20:38] VITALS: BP 112/51
--- NOTE | 2019-10-17 20:44 | NUR ---
REC'D CHGE OF SHIFT UP LOOKING OUT WINDOW.02 4L NC HIGH FLOW.DENIES ANY RESP. DIFFICULTY DIFFICULTY AT PRESENT TIME.MONITOR SHOWING SINUS RHYTHM. WILL CONTINUE TO MONITOR AND FOLLOW FOR ANY CHGES AND CONTINUE CURRENT PLAN OF CARE
[2019-10-18] VITALS: BP 94/48
[2019-10-18 04:48] VITALS: BP 92/60
[2019-10-18 05:02] LABS: BASOPHILS 0 % (0-2); EOSINOPHILS 0.5 % (0-7); HEMATOCRIT 31.5 % (42.0-54.0); HEMOGLOBIN 8.9 g/dL (13.5-17.5); IMMATURE GRANULOCYTES 0.3 % (0-5); LYMPHOCYTES 36.3 % (15-50); MCH 21.8 pg (26.0-34.0); MCHC 28.3 g/dL (31.0-37.0); MCV 77.2 fL (80.0-100.0); MEAN PLATELET VOLUME 8.7 fL (7.4-10.4); MONOCYTES 15.3 % (2-11); NEUTROPHILS 47.6 % (40-80); PLATELET COUNT 232 10x3/uL (130-400); RBC 4.08 10x6/uL (4.20-6.10); RDW 19.6 % (11.5-14.5)
[2019-10-18 05:27] LABS: WBC 3.7 10x3/uL (4.8-10.8)
[2019-10-18 05:50] LABS: ALBUMIN 2.8 g/dL (3.4-5.0); ANION GAP 8.4 mmol/L (8-16); BILIRUBIN - TOTAL 0.67 mg/dL (0.2-1.3); CALCIUM 8.4 mg/dL (8.5-10.1); CARBON DIOXIDE 29.8 mmol/L (21.0-32.0); CREATININE - SERUM 1.2 mg/dL (0.6-1.3); PHOSPHOROUS 3.4 mg/dL (2.5-4.9); POTASSIUM - SERUM 4.2 mmol/L (3.5-5.1); PROTEIN - SERUM 6.1 g/dL (6.4-8.2)
[2019-10-18 06:00] LABS: TROPONIN-I 0.637 ng/mL (0.000-0.060)
--- NOTE | 2019-10-18 08:00 | NUR ---
PATIENT REQUESTED AND RECEIVED COFFEE, SUGAR, AND CREAMER. SHIFT ASSESMENT COMPLETED. NO CO OF PAIN. NO NEEDS AT THIS TIME. WCTM
[2019-10-18 08:27] VITALS: BP 95/55
--- NOTE | 2019-10-18 11:12 | NUR ---
PATIENT UP IN CHAIR. NO NEEDS AT THIS TIME. WCTM CL IN REACH.
[2019-10-18 12:48] VITALS: BP 110/51
--- NOTE | 2019-10-18 14:31 | MORECARE ---
CASE MANAGEMENT DISCHARGE SUMMARY PATIENT: CONTRERAS SHARMA UNIT: [id number] ADM DATE: 10/13/19 AGE: 79 : 39 SEX: M ROOM/BED: D.2231 AUTHOR: MELANIE ROMEO PHYSICIAN: REFERRING PHYSICIAN: TERESO FRANZ MD DATE OF SERVICE: 10/18/19 Discharge Plan Patient Name: CONTRERAS SHARMA Facility: [facility]:[place] : 1940 Planned Disposition: Home Anticipated Discharge Date: Discharge Date: Expected LOS: Initial Reviewer: [email or web address] Initial Review Date: 10/18/2019 Generated: 10/18/19 3:30 pm Comments DCP- Discharge Planning Updated by [email or web address]: Dawn Carrillo on 10/18/19 1:[address] Patient Name: CONTRERAS SHARMA Admission Status: ER Accout number: [id number] Admission Date: 10-13-2019 : 1940 Admission Diagnosis:UNSPECIFIED ABDOMINAL PAIN Attending: TERESO FRANZ Current LOS: 5 Anticipated DC Date: Planned Disposition: Home Primary Insurance: MEDICARE A & B Discharge Planning Comments: CM met with patient at bedside after explaining CM role and obtaining verbal consent. CM discussed availability / needs of home health, REHAB and medical equipment. PATIENT DENIES ANY DISCHARGE NEEDS. HAS 02 AND NEBS AT HOME WITH [facility]. PLANS TO DC TO HOME WITH SPOUSE WHEN DISCHARGED. Water Well Driller: Dawn Carrillo DCPIA - Discharge Planning Initial Assessment Updated by [email or web address]: Dawn Carrillo on 10/18/19 2:27 pm * Is the patient Alert and Oriented? Yes * PCP MCALLISTER * Pharmacy [facility] * Preadmission Environment Home with Family * ADLs Independent * Other Equipment 02, NEBS WITH [facility] * Additional services required to return to the preadmission environment? No * Can the patient safely return to the preadmission environment? Yes * Has this patient been hospitalized within the prior 30 days at any hospital? No Patient Name: CONTRERAS SHARMA Page 19783 at 1431 All edits/amendments must be made on the electronic document DICTATION DATE: 10/18/19 1430 BARREL BURNER: DM 10/18/19 1430 RPT#: [id number] DC DATE: STATUS: ADM IN [facility] [address] [place] [address] END OF REPORT
[2019-10-18 16:00] VITALS: BP 115/52
[2019-10-18 21:15] VITALS: BP 118/52
--- NOTE | 2019-10-18 23:27 | NUR ---
REC'D WALKING ROUNDS CHGE OF SHIFT SITTING IN BEDSIDE CHAIR.02 4L NC C/O SOME SOB ON MINIMAL ACTIVITY.WILL CONTINUE TO MONITOR FOR ANY CHGES IN RESP. STATUS AND FOLLOW CURRENT PLAN OF CARE.
[2019-10-19 00:32] VITALS: BP 112/59
[2019-10-19 06:22] VITALS: BP 103/53
[2019-10-19 06:58] LABS: BASOPHILS 0 % (0-2); EOSINOPHILS 1.1 % (0-7); HEMATOCRIT 31.6 % (42.0-54.0); HEMOGLOBIN 8.7 g/dL (13.5-17.5); IMMATURE GRANULOCYTES 0.4 % (0-5); LYMPHOCYTES 29.2 % (15-50); MCH 21.8 pg (26.0-34.0); MCHC 27.5 g/dL (31.0-37.0); MEAN PLATELET VOLUME 8.6 fL (7.4-10.4); MONOCYTES 19.4 % (2-11); NEUTROPHILS 49.9 % (40-80); PLATELET COUNT 208 10x3/uL (130-400); RDW 19.7 % (11.5-14.5); WBC 4.5 10x3/uL (4.8-10.8)
[2019-10-19 07:13] LABS: ALBUMIN 2.9 g/dL (3.4-5.0); ANION GAP 7.6 mmol/L (8-16); BILIRUBIN - TOTAL 0.59 mg/dL (0.2-1.3); CALCIUM 8.3 mg/dL (8.5-10.1); CARBON DIOXIDE 28.8 mmol/L (21.0-32.0); CREATININE - SERUM 1.2 mg/dL (0.6-1.3); POTASSIUM - SERUM 4.4 mmol/L (3.5-5.1)
--- NOTE | 2019-10-19 07:31 | NUR ---
UP AT BEDSIDE,WITHOUT DISTRESS.DOOR OPEN
--- NOTE | 2019-10-19 08:15 | NUR ---
REC'D IN WALKING ROUND SITTING ON SIDE OF BED AWAKE AND ALERT. RESP EVEN AND UNLABORED WITH NO DISTRESS NOTED. CAN EXPRESS NEEDS AND WANTS NO C/O NOTED. ASSESSMENT COMPLETED. C/L IN REACH AT BEDSIDE.
[2019-10-19 08:17] VITALS: BP 108/55
[2019-10-19] MEDS ORDERED: ALBUTEROL2.5 MG/3 M INH (10:27)
[2019-10-19] MEDS ORDERED: BROVANA15 MCG/2 M INH (10:27)
[2019-10-19] MEDS ORDERED: K-DUR20 MEQ PO (10:27)
[2019-10-19] MEDS ORDERED: MIRALAX17 GM PO (10:28)
[2019-10-19] MEDS ORDERED: PREDNISONE10 MG PO (10:28)
[2019-10-19] MEDS ORDERED: NITRO BID 2% TOPICAL (10:29)
--- NOTE | 2019-10-19 13:11 | NUR ---
DR. GUPTA HERE MAKING ROUNDS WAS INFORMED TO CANCEL PING [facility]. CALL WAS PLACED TO PHARMACY AND MEDICATION CANCEL.
--- NOTE | 2019-10-19 15:18 | NUR ---
DC HOME WITH ALL PERSONAL BELONGING AND DC INSTRUCTION. STABLE CONDITION UPON DEPARTURE.
--- NOTE | 2019-10-20 08:38 | MORECARE ---
CASE MANAGEMENT DISCHARGE SUMMARY PATIENT: CONTRERAS SHARMA UNIT: [id number] ADM DATE: 10/13/19 AGE: 79 : 39 SEX: M ROOM/BED: D.2231 AUTHOR: MELANIE ROMEO PHYSICIAN: REFERRING PHYSICIAN: TERESO FRANZ MD DATE OF SERVICE: 10/20/19 Discharge Plan Patient Name: CONTRERAS SHARMA Facility: [facility]:[place] : 1940 Planned Disposition: Home Anticipated Discharge Date: Discharge Date: 10/19/2019 Expected LOS: Initial Reviewer: [id number] Initial Review Date: 10/18/2019 Generated: 10/20/19 9:38 am Comments DCP- Discharge Planning Updated by [email or web address]: Dawn Carrillo on 10/18/19 1:[address] Patient Name: CONTRERAS SHARMA Admission Status: ER Accout number: [id number] Admission Date: 10-13-2019 : 1940 Admission Diagnosis:UNSPECIFIED ABDOMINAL PAIN Attending: TERESO FRANZ Current LOS: 5 Anticipated DC Date: Planned Disposition: Home Primary Insurance: MEDICARE A & B Discharge Planning Comments: CM met with patient at bedside after explaining CM role and obtaining verbal consent. CM discussed availability / needs of home health, REHAB and medical equipment. PATIENT DENIES ANY DISCHARGE NEEDS. HAS 02 AND NEBS AT HOME WITH [facility]. PLANS TO DC TO HOME WITH SPOUSE WHEN DISCHARGED. Knifer Up: Dawn Carrillo DCPIA - Discharge Planning Initial Assessment Updated by [email or web address]: Dawn Carrillo on 10/18/19 2:27 pm * Is the patient Alert and Oriented? Yes * PCP MCALLISTER * Pharmacy [facility] * Preadmission Environment Home with Family * ADLs Independent * Other Equipment 02, NEBS WITH [facility] * Additional services required to return to the preadmission environment? No * Can the patient safely return to the preadmission environment? Yes * Has this patient been hospitalized within the prior 30 days at any hospital? No Last DP export: 10/18/19 1:31 pm Patient Name: CONTRERAS SHARMA Page [phone] at 0838 All edits/amendments must be made on the electronic document DICTATION DATE: 10/20/19837 FAMILY DEVELOPMENT EXTENSION SPECIALIST: THIERRY 10/20/19837 RPT#: [id number] DC DATE:10/19/19 STATUS: DIS IN [facility] [address] [place] [address] END OF REPORT
== END 2019-10-19 15:19 | disposition home or self-care (01) | DRG 374 ==
LOC: D.ER 23:47 → D.MS 10-13 02:44
PROVIDERS: Family Medicine; Internal Medicine Hematology & Oncology; Internal Medicine Pulmonary Disease; Surgery; ADMIT Family Medicine; ATTEND Family Medicine
PROC: 0DBN8ZX Excision of Sigmoid Colon, Via Natural or Artificial Opening Endoscopic, Diagnostic (ICD-10-PCS; principal; 2019-10-13 09:00)
DX: C18.9 Malignant neoplasm of colon, unspecified (principal); I21.4 Non-ST elevation (NSTEMI) myocardial infarction; J96.21 Acute and chronic respiratory failure with hypoxia; K56.1 Intussusception; I50.30 Unspecified diastolic (congestive) heart failure; I13.0 Hypertensive heart and chronic kidney disease with heart failure and stage 1 through stage 4 chronic kidney disease, or unspecified chronic kidney disease; I25.10 Atherosclerotic heart disease of native coronary artery without angina pectoris; J43.9 Emphysema, unspecified; D50.9 Iron deficiency anemia, unspecified; K21.9 Gastro-esophageal reflux disease without esophagitis; N18.9 Chronic kidney disease, unspecified

== ENCOUNTER → 2019-11-23 13:19 | Outpatient (CLI) | payer MEDICARE, OTHER ==
[2019-10-30 14:40] VITALS: BMI 26.6
[~2019-11-23 13:19] MED LIST changes: +ALBUTEROL2.5 MG/3 M INH; +BROVANA15 MCG/2 M INH; +MIRALAX17 GM PO; +NITRO BID 2% TOPICAL; +PREDNISONE10 MG PO
== END | disposition home or self-care (01) ==
LOC: D.RAD 08:30
PROVIDERS: ATTEND Emergency Medicine
DX: C18.9 Malignant neoplasm of colon, unspecified (principal)

== ENCOUNTER 2020-07-06 13:15 | Inpatient (IN) | payer MEDICARE, OTHER ==
[~2020-07-06] VITALS: Ht 170.2 cm; Wt 85.1 kg
--- NOTE | ~2020-07-06 | HEMODYNAMI ---
PATIENT:CONTRERAS SHARMA MEDICAL RECORD: [id number] : 38 LOCATION:[place] [address] ADMISSION DATE: 07/06/20 Generatedon:111:47 Patient name: CONTRERAS SHARMA Patient #: [id number] SSN: [id number] : 1940 Date of study: 07/13/2020 Page: Of Hemodynamic Procedure Report Patient Data Patient Demographics Procedure consent was obtained First Name: CONTRERAS Gender: Male Last Name: ZACHARY : 1940 Middle Initial: E Age: 80 year(s) Patient #: [id number] Race: SSN: [id number] Additional ID: [id number] Contact details [address]: [address] [place] [address] [address] State: [place] City: [place] Zip code: [address] Past Medical History Allergies Allergen Reaction Date Comments Reported Other allergy 12/10/2015 Sulfa, SUNDAR Inhibitors, Amlodipine Other allergy 10/14/2016 Sulfa Sulfa drugs 12/23/2016 Other allergy 09/23/2017 sulfa Sulfa drugs 10/21/2017 Other allergy 07/13/2020 SULFA Admission Admission Data Admission Date: 07/06/2020 Admission Time: 16:05 Arrival Date: 07/13/2020 Arrival Time: 0:00 Admit Source: Other Insurance Payor: Medicare Room #: D.2123 [facility] #: [id number] Height (in.): 67 BSA: 1.85 (m2) Height (cm.): 170.18 BMI: 25.37 (kg/m2) Weight (lbs.): 162 Weight (kg.): 73.48 Lab Results Lab Result Date: 07/13/2020 Lab Result Time: 0:00 Biochemistry Name Units Result Min Max BUN mg/dl 50 --(----)-* 7 18 CK-MB ng/ml 34.9 --(----)-* 0 3.6 Creatinine mg/dl 1.7 --(----)-* 0.6 1.3 eGFR ml/min 41 *-(----)-- 90 120 NONAFRICAN Troponin l ng/ml 67.13 --(----)-* 0 0.06 CBC Name Units Result Min Max Hematocrit % 31.4 *-(----)-- 42 54 Hemoglobin g/dl 8.8 *-(----)-- 13.5 17.5 Procedure Procedure Types Cath Procedure Diagnostic Procedure [facility] Coronaries only Sedation Charges Moderate Sedation 10-24 minutes Moderate Sedation 55-69 minutes Procedure Description Procedure Date Procedure Date: 07/13/2020 Procedure Start Time: 10:29 Procedure End Time: 11:44 Procedure Staff Name Function Alexander Lechuga MD Performing Physician Leah Fischer RT Monitor Nimo Bajwa RT Scrub Wilfredo Mace RN Nurse Aleksandra Sullivan RT Medical Screener Procedure Data Cath Procedure Fluoroscopy Diagnostic fluoroscopy Total fluoroscopy Time: time: 17.2 min 17.2 min Diagnostic fluoroscopy Total fluoroscopy dose: 823 dose: 823 mGy mGy Contrast Material Contrast Material Type Amount (ml) Isovue 300 53 Entry Location Entry Primary Successful Side Size Upsize Upsize Entry Closure Cisse ccessful Closure Location (Fr) 1 (Fr) 2 (Fr) Remarks Device Remarks Femoral Right 5 Fr Exoseal artery Radial Right 6 Fr Mechanical artery Short Compression Estimated blood loss: 5 ml Diagnostic catheters Device Type Used For End Catheter Placement MULTIPACK 3DRC 5Fr Multi-vessel catheter Angiography DIAGNOSTIC MPA-2 5Fr Multi-vessel catheter ([id number]) Angiography DIAGNOSTIC [employer] [place] 110cm 5 Multi-vessel Fr catheter ([id number]) Angiography MULTIPACK Pigtail 5 Fr LV Angiography catheter DIAGNOSTIC AR2 MOD 5 Fr Multi-vessel catheter ([id number]) Angiography DIAGNOSTIC AL2 5Fr Multi-vessel catheter ([id number]) Angiography Procedure Complications No complications Procedure Medications Medication Administration Route Dosage Oxygen etCO2 Nasal cannula 4 l/min Lidocaine 2% added to field 20 Heparin Flush Bag added to field 2 bags (1000units/500ml NS) 0.9% NaCl I.V. 100 ml/hr Versed I.V. 1 mg Fentanyl I.V. 50 mcg Dobutamine I.V. drip 5 mcg/kg/min (500mg/250ml D5W) Versed I.V. 1 mg Fentanyl I.V. 50 mcg Nitroglycerin IC/IA I.A. 400 mcg Fentanyl I.V. 50 mcg Heparin Flush Bag added to field 1 bags (1000units/500ml NS) Dobutamine I.V. drip 5 mcg/kg/min (500mg/250ml D5W) Hemodynamics Rest BSA: 1.85 (m2) HGB: 8.8 (g/dl) O2 Consumption: Estimated: 217.91 (ml/min) O2 Con sumption indexed: Estimated:117.79 (ml/min/m) Heart Rate: 80 (bpm) Snapshots Pre Cath Intra NCS Post Cath Vital Signs Time Heart Resp SPO2 etCO2 NIBP Rhythm Pain Sedation Rate (ipm) (%) (mmHg) (mmHg) Status Level (bpm) 10:18:46 81 27 93 0 104/76(90) NSR 0 (11) 10(A) , No pain 10:22:51 79 29 92 0 109/70(89) NSR 0 (11) 10(A) , No pain 10:26:59 80 22 93 12.8 99/65(81) NSR 0 (11) 10(A) , No pain 10:31:05 80 24 92 16.5 77/53(62) NSR 0 (11) 10(A) , No pain 10:35:05 104 20 90 1.5 80/57(63) NSR 0 (11) 9(A) , No pain 10:39:04 82 20 92 1.5 86/61(76) NSR 0 (11) 9(A) , No pain 10:43:06 84 21 93 1.5 90/59(73) NSR 0 (11) 9(A) , No pain 10:47:10 90 20 96 12 100/64(83) NSR 0 (11) 10(A) , No pain 10:51:14 94 25 94 12 107/72(85) NSR 0 (11) 10(A) , No pain 10:55:21 94 19 93 0 104/68(76) NSR 0 (11) 10(A) , No pain 10:59:27 95 18 94 0.7 97/67(78) NSR 0 (11) 10(A) , No pain 11:03:27 90 19 94 9 95/63(81) NSR 0 (11) 10(A) , No pain 11:09:03 86 20 96 9.7 94/69(83) NSR 0 (11) 10(A) , No pain 11:13:06 122 19 97 9.7 108/81(97) NSR 0 (11) 10(A) , No pain 11:17:20 115 17 96 10.5 105/71(89) NSR 0 (11) 10(A) , No pain 11:21:32 111 20 97 9.7 107/76(93) NSR 0 (11) 9(A) , No pain 11:25:44 107 17 96 11.2 106/75(91) NSR 0 (11) 9(A) , No pain 11:29:54 105 16 96 18 114/77(89) NSR 0 (11) 10(A) , No pain 11:34:00 104 18 96 15 110/81(98) NSR 0 (11) 10(A) , No pain 11:38:12 103 20 96 18 114/74(96) NSR 0 (11) 10(A) , No pain 11:42:22 86 19 96 16.5 107/78(89) NSR 0 (11) 10(A) , No pain Medications Time Medication Route Dose Verified Delivered Reason Not es Effectiveness by by 10:15:42 Oxygen etCO2 4 l/min Alexander Villalobos used for Nasal [facility] Juan Carlos Mace RN procedure cannula 10:25:05 0.9% NaCl I.V. 100 ml/hr Alexander Villalobos Per [facility] Juan Carlos novoa MD 10:25:50 Lidocaine 2% added 20ml vial Alexander Munoz for local to [facility] anesthetic field MD WOLFF 10:25:56 Heparin Flush added 2 bags Alexander Munoz used for Bag to [facility] procedure (1000units/500ml field MD WOLFF NS) 10:26:40 Versed I.V. 1 mg Alexander Villalobos for sedation [facility] Mace RN, MD 10:26:47 Fentanyl I.V. 50 mcg Alexander Villalobos for sedation [facility] Mace RN, MD 10:44:37 Dobutamine I.V. 5 Alexander Villalobos Per (500mg/250ml drip mcg/kg/min Ankush Mace RN physician D5W) 11:18:11 Versed I.V. 1 mg Alexander Villalobos for sedation [facility] Mace RN, MD 11:18:15 Fentanyl I.V. 50 mcg Alexander Villalobos for sedation [facility] Juan [facility] Mace RN, MD 11:27:05 Nitroglycerin I.A. 400 mcg Alexander Munoz for to radial IC/IA [facility] vasodilation sheath for MD WOLFF spasm 11:27:37 Fentanyl I.V. 50 mcg Alexander Villalobos for sedation [facility] Juan Carlos Mace RN, MD 11:27:42 Heparin Flush added 1 bags Alexander Munoz used for Bag to [facility] procedure (1000units/500ml field MD WOLFF NS) 11:36:16 Dobutamine I.V. 5 Alexander Villalobos Per inf usion (500mg/250ml drip mcg/kg/min [facility] Mace RN physician discontinued D5W) MD per dr campos Procedure Log Time Note 9:36:34 Informed consent obtained and on chart 9:38:38 Diagnostic Cath Status : Urgent 9:39:49 Lab Result : Troponin l 67.13 ng/ml 9:39:49 Lab Result : Hemoglobin 8.8 g/dl 9:39:49 Lab Result : eGFR NONAFRICAN 41 ml/min 9:39:49 Lab Result : BUN 50 mg/dl 9:39:49 Lab Result : Creatinine 1.7 mg/dl 9:39:49 Lab Result : CK-MB 34.9 ng/ml 9:39:49 Lab Result : Hematocrit 31.4 % 9:39:52 Arrival Date: 07/13/2020 12:00:00 AM 9:39:53 Admit Source: Other 9:39:57 Patient Height : 67 inches 9:40:05 Patient Weight : 162 lbs 9:40:12 Insurance Payor : Medicare 9:40:43 Patient allergic to Other allergySULFA 9:40:51 ACC Patient presents with Non-STEMI CCS Anginal Class 2--Slight limitation of ordinary activity. 9:40:54 Procedure Status Urgent Heart Cath (IP). 9:40:56 Time tracking: Regular hours (M-F 7:00 - 5:00) 9:41:01 Plan of Care:Hemodynamics will remain stable., Cardiac rhythm will remain stable., Comfort level will be maintained., Respiratory function will remain adequate., Patient/ family verbilizes understanding of procedure., Procedure tolerated without complication., Recovers from procedure without complications.. 9:41:16 H&P Date Dictated: 07/06/2020 Within 30 days and on chart.. 9:41:18 Pre-procedure instructions explained to patient. 9:41:18 Pre-op teaching completed and patient verbalized understanding. 9:41:20 Family unavailable. 9:41:22 Patient NPO since Midnight. 9:43:46 Aleksandra Sullivan RT(R) sent for patient. Start room use. 9:52:59 Risk of Mortality: 0.4 9:53:07 Risk of blood transfusion: 20.9 9:53:12 Risk of RUDDY: 9.1 10:02:28 Patient received from Med II to CCL 1 Alert and oriented. Tansferred to table in Supine position. 10:02:30 Warm blankets applied, and nette hugger turned on for patient comfort. 10:02:30 Correct patient and procedure confirmed by team. 10:02:31 ECG and BP/O2 sat monitors applied to patient. 10:10:41 3a) 45-59 Moderately reduced kidney function. 10:10:44 Maximum allowable contrast dose (3.7 X eGFR X 0.75)114 ml. 10:11:17 Sedation plan: IV Moderate Sedation Medication:Versed, Fentanyl 10:15:42 Oxygen 4 l/min etCO2 Nasal cannula was administered by Wilfredo Mace RN; used for procedure; Verbal order read back and verified. 10:17:47 Vital chart was started 10:17:48 Baseline sample Acquired. 10:17:53 Full Disclosure recording started 10:17:56 Is the patient allergic to Iodine/contrast media? No. 10:17:58 Was the patient premedicated? Yes 10:20:55 Is patient on blood thinner?Yes 10:21:20 Patient diabetic? No. 10:22:19 ACC The patient was administered the following blood thiners within the last 24 hours: ACCLovenox 10:22:24 Previous problem with sedation/anesthesia? No ? 10:22:26 Snore? Yes 10:22:27 Sleep apnea? No 10:22:28 Deviated septum? No 10:22:29 Opens mouth fully? Yes 10:22:30 Sticks out tongue? Yes 10:22:31 Airway obstruction? No ? 10:22:34 Dentures? No ? 10:22:38 Pre procedure: right dorsailis pedis pulse 1+ Palpable, but thready & weak; easily obliterated 10:22:40 Pre procedure: left dorsailis pedis pulse 1+ Palpable, but thready & weak; easily obliterated 10:22:43 Patient pain scale 0/10 ?. 10:23:11 IV patent on arrival in left forearm with 0.9% NaCl at O. 10:23:14 Lab results completed and on chart. 10:23:18 Right groin area was prepped with chlora-prep and draped in sterile fashion 10:23:19 Alarms reviewed by R. N. 10:23:20 Sharps counted by scrub and verified by R.N. 10:23:22 Physician arrived 10:23:23 --------ALL STOP TIME OUT------ 10:23:24 Final Timeout: patient, procedure, and site verified with staff and physician. All members of the team are in agreement. 10:23:26 Right groin site verified by team. 10:23:36 Fire Safety Assessment: A--An alcohol-based skin anteseptic being used preoperatively., C--Open oxygen or nitrous oxide is being used., D--An ESU, laser, or fiber-optic light is being used. 10:23:43 Physical assessment completed. ASA score P 3 - A patient with severe systemic disease as per Alexander Lechuag MD. 10:23:50 Use device set Femoral Dx 10:23:51 ACIST Syringe (77388) opened to sterile field. 10:23:52 Bag Decanter (2002) opened to sterile field. 10:23:52 Medline Cath Pack ([id number]) opened to sterile field. 10:23:53 ACIST Hand Control (25763) opened to sterile field. 10:23:54 ACIST Manifold (22913) opened to sterile field. 10:23:54 DIAGNOSTIC Multipack 5Fr catheter set (KL8063) opened to sterile field. 10:23:55 Tegaderm 4 x 4 (1626W) opened to sterile field. 10:23:56 SHEATH 5FR [place] (EBN466) opened to sterile field. 10:23:56 EMERALD Guide Wire (765-826) opened to sterile field. 10:25:05 0.9% NaCl 100 ml/hr I.V. was administered by Wilfredo Mace RN; Per physician; Verbal order read back and verified. 10:25:50 Lidocaine 2% 20ml vial added to field was administered by Alexander Lechuga MD; for local anesthetic; Verbal order read back and verified. 10:25:56 Heparin Flush Bag (1000units/500ml NS) 2 bags added to field was administered by Alexander Lechuga MD; used for procedure; Verbal order read back and verified. 10:26:40 Versed 1 mg I.V. was administered by Wilfredo Mace RN; for sedation; Verbal order read back and verified. 10:26:47 Fentanyl 50 mcg I.V. was administered by Wilfredo Mace RN; for sedation; Verbal order read back and verified. 10:28:57 Procedure started. 10:29:00 Local anesthetic to right femoral artery with Lidocaine 2% by Alexander Lechuga MD.INITIAL ACCESS ONLY 10:30:32 IV Extension Set opened to sterile field. 10:37:34 A 5 Fr sheath was inserted into the Right Femoral artery 10:37:47 GLIDE WIRE ANGLE 260cm (ZD1700) opened to sterile field. 10:40:29 A MULTIPACK 3DRC 5Fr catheter was advanced over the wire and used for Multi-vessel Angiography. 10:40:58 [place] wire used with 3drc to gain access through tortuous iliac 10:41:24 SHEATH 6FR Destination (RSR01) opened to sterile field. 10:41:35 TORQUE DEVICE PLASTIC .038 ( TD01) opened to sterile field. 10:43:35 Catheter removed. unable to cannulate vessel. 10:44:37 Dobutamine (500mg/250ml D5W) 5 mcg/kg/min I.V. drip was administered by Wilfredo Mace RN; Per physician; Verbal order read back and verified. 10:45:34 A DIAGNOSTIC MPA-2 5Fr catheter (210407G) was advanced over the wire and used for Multi-vessel Angiography. 10:50:44 GLIDE WIRE Super Stiff Angled 260cm (EH0838) opened to sterile field. 10:52:10 Catheter removed. unable to cannulate vessel. 10:53:57 Local anesthetic to left femerol artery with Lidocaine 2% by Alexander Lechuga MD.ADDITIONAL ACCESS 11:08:31 difficulty gaining left femoral access; right radial prepped 11:08:39 SHEATH 6FR RAIN ([id number]) opened to sterile field. 11:08:56 Local anesthetic to right radial artery with Lidocaine 2% by Alexander Lechuga MD.ADDITIONAL ACCESS 11:09:00 A 6 Fr Short sheath was inserted into the Right Radial artery 11:10:33 A DIAGNOSTIC [employer] 110cm 5 Fr catheter (515596) was advanced over the wire and used for Multi-vessel Angiography. 11:11:26 glide wire advanced 11:16:17 Catheter removed. unable to cannulate vessel. 11:16:47 GUIDE 5FR EBU 4.0 catheter ([id number]) opened to sterile field. 11:17:57 LCA angiography performed. 11:18:00 Injector settings: Ml/sec: 3, Volume: 6, 11:18:11 Versed 1 mg I.V. was administered by Wilfredo Mace RN; for sedation; Verbal order read back and verified. 11:18:15 Fentanyl 50 mcg I.V. was administered by Wilfredo Mace RN; for sedation; Verbal order read back and verified. 11:18:47 Catheter removed. 11:21:32 A MULTIPACK Pigtail 5 Fr catheter was advanced over the wire and used for LV Angiography. 11:22:44 Catheter removed. 11:25:18 A DIAGNOSTIC AR2 MOD 5 Fr catheter ([id number]) was advanced over the wire and used for Multi-vessel Angiography. 11:25:25 Catheter removed. 11:26:29 Radial artery spasm; difficulty manipulating catheters. Nitro being prepared 11:27:05 Nitroglycerin IC/IA 400 mcg I.A. was administered by Alexander Lechuga MD; for vasodilation; to radial sheath for spasm Verbal order read back and verified. 11:27:37 Fentanyl 50 mcg I.V. was administered by Wilfredo Mace RN; for sedation; Verbal order read back and verified. 11:27:42 Heparin Flush Bag (1000units/500ml NS) 1 bags added to field was administered by Alexander Lechuga MD; used for procedure; Verbal order read back and verified. 11:28:34 A DIAGNOSTIC AL2 5Fr catheter (297338V) was advanced over the wire and used for Multi-vessel Angiography. 11:33:11 Catheter removed. 11:35:19 EXOSEAL 5Fr (EX500) opened to sterile field. 11:35:28 ZEPHYR LARGE TR BAND (655070) opened to sterile field. 11:35:55 Sheath removed intact; hemostasis achieved with Exoseal to the Right Femoral artery. 11:36:16 Dobutamine (500mg/250ml D5W) 5 mcg/kg/min I.V. drip was administered by Wilfredo Mace RN; Per physician; infusion discontinued per dr campos Verbal order read back and verified. 11:36:40 Sheath removed intact; hemostasis achieved with Mechanical Compression to the Right Radial artery. 11:36:42 Procedure ended.(Physican Out) 11:37:05 Fluoroscopy time 17.20 minutes. 11:37:12 Fluoroscopy dose: 823 mGy 11:37:12 Flurop Dose total: 823 11:37:18 Dose Area Product 85098 mGy/cm. 11:37:51 Contrast amount:Isovue 300 53ml. 11:37:53 Maximum allowable dose exceeded? No. 11:37:54 Sharps counted by scrub and verified by R.N. 11:37:56 [place] band inflated with 13cc of air. 11:41:24 FEMSTOP Gold (Q24924) opened to sterile field. 11:41:40 Post right radial artery:stable 11:41:47 Post right femoral artery:bleeding 11:41:52 Femstop placed over the right femoral artery at 160 mmHg. Hemostasis achieved. 11:41:54 Post Procedure Pulses reassessed and unchanged 11:41:57 Post procedure rhythm: unchanged. 11:41:59 Estimated blood loss: 5 ml 11:42:01 Post procedure instruction explained to patient.Patient verbalizes understanding. 11:42:01 Patient needs reinforcement of post procedure teaching. 11:42:35 Procedure type changed to Cath procedure, Diagnostic procedure, LHC, Coronaries only, Sedation Charges, Moderate Sedation 10-24 minutes, Moderate Sedation 55-69 minutes 11:44:11 Procedure and supply charges have been captured, reviewed, submitted and are correct. 11:44:15 Procedure Complication : No complications 11:44:18 Vital chart was stopped 11:44:23 [facility] Findings: YAMILEX- MD will discuss options w/ pt 11:44:25 Operative report dictated upon procedure completion. 11:44:25 See physician's report for complete and final results. 11:44:29 Report given to Med II. 11:44:32 Patient transfered to Med II with Stretcher. 11:44:33 Procedure ended. 11:44:33 Full Disclosure recording stopped 11:44:38 End room use (Document Last) Device Usage Item Name Manufacture Quantity Catalog Hospital Part Current Minimal Lot# / Number Charge Number Stock Stock Serial# Code ACIST Acist 1 34235 578233 819347 185271 20 Syringe Medical (56979) Systems Inc Bag Microtek 1 368004 74855 015822 5 Decanter Medical Inc. () Medline Medline 1 [id number] 422916 88587 634181 5 Cath Pack ([id number]) ACIST Hand Acist 1 40986 073411 458671 534699 5 Control Medical (09087) Systems Inc ACIST Acist 1 10146 208001 882638 547304 5 Manifold Medical (46687) Systems Inc DIAGNOSTIC Cardinal 1 FN3548 835032 21672 431821 30 Multipack Health 5Fr catheter set (DL9748) Tegaderm 4 3M 1 1626W 324511 337049 975162 5 x 4 (1626W) SHEATH 5FR Terumo 1 ZIN649 674848 220816 386668 5 [place] (JCF749) EMERALD Cardinal 1 502-455 582351 143136 525514 5 Guide Wire Health (502-455) IV Hospira 1 47769-89 617938 72751 813759 5 Extension Set GLIDE WIRE Terumo 1 FA5686 353595 978722 019273 5 ANGLE 260cm (DD7439) MULTIPACK Cardinal 1 482520 5 3DRC 5Fr Health catheter SHEATH 6FR Terumo 1 RSR01 816747 70067 097652 5 Destination (RSR01) TORQUE [place] 1 TD01 551498 184299 511358 5 DEVICE Scientific PLASTIC .038 ( TD01) DIAGNOSTIC Cardinal 1 [id number] 153468 062439 198164 5 MPA-2 5Fr Health catheter (306452P) GLIDE WIRE Terumo 1 LK6781 016435 076332 298435 5 Super Stiff Angled 260cm (TY3882) SHEATH 6FR Cardinal 1 5933949 347997 3929471 050240 5 [facility] (1856965) DIAGNOSTIC Terumo 1 40-4273 855979 044616 655244 5 [employer] 110cm 5 Fr catheter (559136) GUIDE 5FR Medtronic 1 [id number] 068701 145698 074949 1 EBU 4.0 catheter (YA6XDY67) MULTIPACK Cardinal 1 031223 5 Pigtail 5 Health Fr catheter DIAGNOSTIC Cardinal 1 [id number] 074979 370904 874140 20 AR2 MOD 5 Health Fr catheter (525952Q) DIAGNOSTIC Cardinal 1 267476L 082691 490152 216230 15 AL2 5Fr Health catheter (007752G) EXOSEAL 5Fr Cardinal 1 EX500 772771 886349 332703 10 (EX500) Health ZEPHYR Cardinal 1 771806 900224 5732686 176673 5 LARGE TR Health BAND (138671) FEMSTOP [facility] [place] 1 K56472 873073 114414 836121 5 Gold (T87108) Signature Audit Trumann Stage Time Signature Unsigned Intra-Procedure 07/13/2020 Leah Fischer 11:46:19 AM RT(R) Intra-Procedure 07/13/2020 Wilfredo Mace RN 11:46:44 AM Intra-Procedure 07/13/2020 Alexander Victor 11:47:07 AM Juan Carlos WOLFF [place] [id number] [place] [address]
--- NOTE | 2020-07-06 13:43 | NUR ---
HYPOTENSION NOTED. CUFF READJUSTED.
--- NOTE | 2020-07-06 13:48 | NUR ---
LAB AT BEDSIDE COLLECTING BLOOD SAMPLE, ASSESSMENT COMPLETE, AWAKE ALERT AND ORIENTED, COVID-19 ANTIGEN SWAB COLLECTED.
--- NOTE | 2020-07-06 13:50 | NUR ---
DR [place] NOTIFIED OF HYPOTENSION. NO NEW ORDERS.
[2020-07-06 13:58] LABS: BASOPHILS 0 % (0-2); EOSINOPHILS 0 % (0-7); HEMATOCRIT 31.7 % (42.0-54.0); HEMOGLOBIN 8.9 g/dL (13.5-17.5); IMMATURE GRANULOCYTES 0.3 % (0-5); LYMPHOCYTE ABS# 0.56 10x3/uL (1.32-3.57); LYMPHOCYTES 18.8 % (15-50); MCH 23.3 pg (26.0-34.0); MCHC 28.1 g/dL (31.0-37.0); MEAN PLATELET VOLUME 9.1 fL (7.4-10.4); MONOCYTES 13.8 % (2-11); NEUTROPHILS 67.1 % (40-80); PLATELET COUNT 178 10x3/uL (130-400); RBC 3.82 10x6/uL (4.20-6.10); RDW 20.4 % (11.5-14.5)
--- NOTE | 2020-07-06 13:58 | NUR ---
RADIOLOGY AT BEDSIDE FOR CXR. RESPIRATORY AT BEDSIDE FOR ABGs.
[2020-07-06 14:07] LABS: CALC OSMOLALITY 290 mosm/kg (275-300); CARBON DIOXIDE 20.9 mmol/L (21.0-32.0); CHLORIDE - SERUM 104 mmol/L (98-107); CREATININE - SERUM 3.1 mg/dL (0.6-1.3); GLUCOSE 118 mg/dL (74-106); POTASSIUM - SERUM 4.2 mmol/L (3.5-5.1); SODIUM 138 mmol/L (136-145); UREA NITROGEN 52 mg/dL (7-18); eGFR NON AFRICAN AMERICAN 21 mL/min (90-120)
[2020-07-06 14:12] LABS: INR 1.35 (0.85-1.17); PROTIME 15.5 SECONDS (11.6-15.0)
[2020-07-06 14:13] LABS: APTT 29.1 SECONDS (22.8-39.4)
[2020-07-06 14:28] LABS: ALBUMIN 3.1 g/dL (3.4-5.0); ALKALINE PHOSPHATASE 102 U/L (30-120); ALT (SGPT) 15 U/L (10-68); BILIRUBIN - TOTAL 1.37 mg/dL (0.2-1.3); CKMB 1.5 U/L (0.0-3.6); CREATINE KINASE 76 UL (21-232); PRO BNP 13324 pg/mL (0-450); PROTEIN - SERUM 7.7 g/dL (6.4-8.2)
[2020-07-06 14:30] VITALS: BP 92/51
--- NOTE | 2020-07-06 14:31 | NUR ---
PATIENT GIVEN WARM BLANKET.
[2020-07-06 14:40] LABS: TROPONIN-I 0.375 ng/mL (0.000-0.060)
--- NOTE | 2020-07-06 14:40 | NUR ---
DR ALBERTS NOTIFIED OF CRITICAL LAB. FORM PLACED ON CHART.
[2020-07-06 15:00] VITALS: BP 95/51
--- NOTE | 2020-07-06 15:28 | NUR ---
PATIENT AWAKE, GIVEN CUP OF WATER.
[2020-07-06 15:30] VITALS: BP 95/50
[2020-07-06 16:00] VITALS: BP 93/61
[2020-07-06 16:20] LABS: CKMB 1.8 U/L (0.0-3.6); CREATINE KINASE 75 UL (21-232)
[2020-07-06 16:22] LABS: TROPONIN-I 0.402 ng/mL (0.000-0.060)
[2020-07-06 16:47] LABS: D-DIMER-QUANTITATIVE 1.05 ug/mLFEU (0.20-0.54)
[2020-07-06 16:51] LABS: SARS-CoV-2 ANTIGEN NEGATIVE- SARS-COV-2 (NEGATIVE)
--- NOTE | 2020-07-06 17:03 | NUR ---
REPORT CALLED TO RAUDEL ON MED SURG FOR ROOM 2123.
[2020-07-06 18:46] VITALS: BP 109/57; BMI 25.4
[2020-07-06 19:18] VITALS: BP 130/67
[2020-07-06 22:59] LABS: CKMB 2.3 U/L (0.0-3.6); CREATINE KINASE 89 UL (21-232)
[2020-07-06 23:00] LABS: TROPONIN-I 0.265 ng/mL (0.000-0.060)
[2020-07-07 00:29] VITALS: BP 103/55
--- NOTE | 2020-07-07 03:59 | NUR ---
PT RESTING, NO S/S OF DISTRESS OBSERVED. DENIES CHEST PAIN BUT C/O OF CHRONIC BACK PAIN. REQUESTING MORPHINE. TRAMADOL PROVIDED EARLIER PER ORDER. NO FURTHER NEEDS EXPRESSED. CL IN REACH. WILL CTM.
[2020-07-07 04:11] LABS: HEMATOCRIT 30.6 % (42.0-54.0); HEMOGLOBIN 8.5 g/dL (13.5-17.5); MCH 22.9 pg (26.0-34.0); MCHC 27.8 g/dL (31.0-37.0); MCV 82.5 fL (80.0-100.0); MEAN PLATELET VOLUME 9.5 fL (7.4-10.4); NEUTROPHIL ABS# 1.47 10x3/uL (1.78-5.38); PLATELET COUNT 177 10x3/uL (130-400); RBC 3.71 10x6/uL (4.20-6.10); RDW 20.3 % (11.5-14.5)
[2020-07-07 04:49] LABS: ALBUMIN 3.1 g/dL (3.4-5.0); ALKALINE PHOSPHATASE 102 U/L (30-120); BILIRUBIN - TOTAL 1.18 mg/dL (0.2-1.3); CALC OSMOLALITY 285 mosm/kg (275-300); CALCIUM 8.9 mg/dL (8.5-10.1); CARBON DIOXIDE 17.2 mmol/L (21.0-32.0); CHLORIDE - SERUM 105 mmol/L (98-107); CKMB 3.5 U/L (0.0-3.6); CREATINE KINASE 123 UL (21-232); CREATININE - SERUM 2.6 mg/dL (0.6-1.3); GLUCOSE 130 mg/dL (74-106); MAGNESIUM - SERUM 2.2 mg/dL (1.8-2.4); PROTEIN - SERUM 7.6 g/dL (6.4-8.2); SODIUM 136 mmol/L (136-145); UREA NITROGEN 45 mg/dL (7-18); eGFR NON AFRICAN AMERICAN 25 mL/min (90-120)
[2020-07-07 04:52] LABS: ALT (SGPT) 22 U/L (10-68); POTASSIUM - SERUM 5.2 mmol/L (3.5-5.1)
[2020-07-07 04:58] LABS: TROPONIN-I 0.595 ng/mL (0.000-0.060)
[2020-07-07 05:13] LABS: WBC 1.9 10x3/uL (4.8-10.8)
[2020-07-07 05:33] VITALS: BP 101/62
[2020-07-07 05:49] LABS: LYMPHOCYTES 16 % (15-50); MONOCYTES 4 % (2-11); NEUTROPHILS 80 % (40-80); PLATELET ESTIMATE NORMAL
[2020-07-07 08:17] VITALS: BP 107/73
[2020-07-07 10:45] VITALS: BP 104/63
[2020-07-07 12:08] VITALS: BMI 25.3
[2020-07-07 12:53] VITALS: Ht 170.2 cm; Wt 85.1 kg
[2020-07-07 14:18] LABS: BILIRUBIN NEGATIVE (NEGATIVE); KETONE NEGATIVE (NEGATIVE); NITRITE NEGATIVE (NEGATIVE); UROBILINOGEN NORMAL mg/dL (< 2)
--- NOTE | 2020-07-07 15:07 | NUR ---
paged Dr. Lenz to inform that US will not perform renal US ordered until patient is out of covid isolation. PUI pending. gave clinic this info and paged. have not recieved call back yet.
[2020-07-07 15:15] VITALS: BP 108/64
[2020-07-07 20:30] VITALS: BP 87/51
[2020-07-08 00:30] VITALS: BP 84/56
--- NOTE | 2020-07-08 01:29 | NUR ---
CHART CHECK PERFORMED NOTED NEW ORDER FOR BICARB GTT. INITATIED GTT AT THIS TIME TO NEW 22G PIV TO LEFT WRIST.
[2020-07-08 04:30] VITALS: BP 79/44
[2020-07-08 05:59] LABS: BASOPHILS 0 % (0-2); EOSINOPHILS 0 % (0-7); HEMATOCRIT 29.2 % (42.0-54.0); HEMOGLOBIN 8.2 g/dL (13.5-17.5); IMMATURE GRANULOCYTES 0.6 % (0-5); LYMPHOCYTE ABS# 0.37 10x3/uL (1.32-3.57); LYMPHOCYTES 20.7 % (15-50); MCHC 28.1 g/dL (31.0-37.0); MCV 81.8 fL (80.0-100.0); MEAN PLATELET VOLUME 8.9 fL (7.4-10.4); MONOCYTES 0.6 % (2-11); NEUTROPHILS 78.1 % (40-80); PLATELET COUNT 145 10x3/uL (130-400); RBC 3.57 10x6/uL (4.20-6.10); RDW 20.2 % (11.5-14.5)
[2020-07-08 06:15] LABS: WBC 1.8 10x3/uL (4.8-10.8)
[2020-07-08 06:20] LABS: ALBUMIN 2.8 g/dL (3.4-5.0); ANION GAP 17.5 mmol/L (8-16); BILIRUBIN - TOTAL 0.51 mg/dL (0.2-1.3); CALCIUM 8.6 mg/dL (8.5-10.1); CARBON DIOXIDE 19.1 mmol/L (21.0-32.0); CREATININE - SERUM 2.3 mg/dL (0.6-1.3); MAGNESIUM - SERUM 2.1 mg/dL (1.8-2.4); POTASSIUM - SERUM 4.6 mmol/L (3.5-5.1); PROTEIN - SERUM 6.9 g/dL (6.4-8.2)
[2020-07-08 06:46] LABS: CKMB 5.6 U/L (0.0-3.6); CREATINE KINASE 159 UL (21-232)
[2020-07-08 06:48] LABS: TROPONIN-I 0.658 ng/mL (0.000-0.060)
--- NOTE | 2020-07-08 07:20 | NUR ---
RECIEVE REPORT. ALERT AND ORIENTED X4. LAYING IN BED. SINUS RYTHM 77 ON TELEMETRY. DENIES ANY NEEDS. CONTINUE PLAN OF CARE AND SAFETY PRECAUTIONS.
[2020-07-08 08:00] VITALS: BP 94/58
[2020-07-08 12:00] VITALS: BP 90/62
--- NOTE | 2020-07-08 12:17 | NUR ---
rehab prescreen: thank you for this eval, this patient has been recentally admitted and still has several labs and testing pending. pt has not been evaluated by therapy yet, will need their eval to deturmine pt rehab need. the pt was put on neuropentic procautions, and is not currently stable. will monitor progress and re-eval at a later date. thank you once again for this eval. aileen baker lpn clinical liasion
[2020-07-08 16:00] VITALS: BP 91/56
[2020-07-08 18:02] LABS: % SATURATION 4 % (15-55); IRON 16 ug/dl (35-150); TOTAL IRON BIND CAPACITY 339 ug/dl (260-445); UNSAT IRON BIND CAPACITY 323 ug/dl (150-375)
[2020-07-08 18:16] LABS: THYROID STIMULATING HORMONE 0.14 uIU/mL (0.36-3.74)
--- NOTE | 2020-07-08 19:10 | NUR ---
REPORT RECEIVED, PT CARE ASSUMED. PT SITTING UP IN BED, AAOX4, WATCHING TV. DENIES ANY NEEDS AT THIS TIME. BED IN LOWEST, SRX2, CL WITHIN REACH. CPOC.
[2020-07-08 19:41] VITALS: BP 90/52
[2020-07-08] MEDS ORDERED: OMEPRAZOLE40 MG PO (22:49)
[2020-07-09 01:19] VITALS: BP 115/72
--- NOTE | 2020-07-09 07:20 | NUR ---
RECIEVE REPORT. ALERT AND ORIENTED X4. SITTING UP ON SIDE OF BED. DENIES ANY NEEDS. O2 @ 7LHF. CONTINUE PLAN OF CARE AND SAFETY PRECAUTIONS.
[2020-07-09 08:00] VITALS: BP 104/65
[2020-07-09 09:35] LABS: % SATURATION 4 % (15-55); IRON 16 ug/dl (35-150); TOTAL IRON BIND CAPACITY 377 ug/dl (260-445); UNSAT IRON BIND CAPACITY 361 ug/dl (150-375)
[2020-07-09 09:42] LABS: ANION GAP 17.9 mmol/L (8-16); BILIRUBIN - TOTAL 0.45 mg/dL (0.2-1.3); CALCIUM 8.7 mg/dL (8.5-10.1); CARBON DIOXIDE 19.6 mmol/L (21.0-32.0); CREATININE - SERUM 1.8 mg/dL (0.6-1.3); MAGNESIUM - SERUM 2.1 mg/dL (1.8-2.4); POTASSIUM - SERUM 4.5 mmol/L (3.5-5.1); PROTEIN - SERUM 7.1 g/dL (6.4-8.2)
[2020-07-09 11:00] VITALS: BP 109/72
[2020-07-09 12:23] LABS: BASOPHILS 0 % (0-2); EOSINOPHILS 0 % (0-7); HEMATOCRIT 30.4 % (42.0-54.0); HEMOGLOBIN 8.5 g/dL (13.5-17.5); IMMATURE GRANULOCYTES 0.3 % (0-5); LYMPHOCYTE ABS# 0.31 10x3/uL (1.32-3.57); LYMPHOCYTES 10.6 % (15-50); MCH 23.1 pg (26.0-34.0); MCV 82.6 fL (80.0-100.0); MEAN PLATELET VOLUME 9.4 fL (7.4-10.4); MONOCYTES 3.4 % (2-11); NEUTROPHIL ABS# 2.51 10x3/uL (1.78-5.38); NEUTROPHILS 85.7 % (40-80); RBC 3.68 10x6/uL (4.20-6.10); RDW 20.2 % (11.5-14.5)
[2020-07-09 12:34] LABS: PLATELET COUNT 180 10x3/uL (130-400); WBC 2.9 10x3/uL (4.8-10.8)
--- NOTE | 2020-07-09 13:42 | NUR ---
ALERT AND ORIENTED X4. SITTING UP IN BED. STOOL COLLECTED TAKEN TO LAB. COVID TEST OBTAINED AND TAKEN TO LAB. DENIES ANY NEEDS. CONTINUE PLAN OF CARE AND SAFETY PRECAUTIONS. 68 SINUS RYTHM ON TELEMETRY.
[2020-07-09 15:00] VITALS: BP 99/57
--- NOTE | 2020-07-09 16:16 | NUR ---
OT NOTE: PT IS AN 80 YO WM WITH DX OF COVID PUI, CKD, PNA, ACUTE EXACERBATION OF COPD, CHF, HTN, AND CAD. PT LIVES [facility] .. 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 PT REMAINS INDEP WITH IN ROOM MOBILITY AND ADLS. NO OT RECOMMENDED AT THIS TIME. THANK YOU FOR REFERAL DAVON WOOD OTR/L EVAL TIME: [id number]
[2020-07-09 18:00] VITALS: BP 93/61
[2020-07-09 23:03] VITALS: BP 98/67
--- NOTE | 2020-07-10 01:15 | NUR ---
RESTING WITH EYES CLOSED, RESPERATIONS EVEN, NO S/S DISTRESS NOTED.
--- NOTE | 2020-07-10 04:04 | NUR ---
I have reviewed this patient and I concur with the Shift Assessment completed by the Licensed Practical Nurse today this shift.
[2020-07-10 07:03] LABS: ALBUMIN 2.8 g/dL (3.4-5.0); BILIRUBIN - TOTAL 0.45 mg/dL (0.2-1.3); CALCIUM 8.5 mg/dL (8.5-10.1); CREATININE - SERUM 1.7 mg/dL (0.6-1.3); MAGNESIUM - SERUM 2.1 mg/dL (1.8-2.4); PROTEIN - SERUM 6.7 g/dL (6.4-8.2)
[2020-07-10 07:18] LABS: BASOPHILS 0 % (0-2); EOSINOPHILS 0 % (0-7); HEMATOCRIT 29.8 % (42.0-54.0); HEMOGLOBIN 8.2 g/dL (13.5-17.5); IMMATURE GRANULOCYTES 0.4 % (0-5); LYMPHOCYTE ABS# 0.26 10x3/uL (1.32-3.57); LYMPHOCYTES 11.6 % (15-50); MCH 22.8 pg (26.0-34.0); MCHC 27.5 g/dL (31.0-37.0); MCV 82.8 fL (80.0-100.0); MONOCYTES 4.4 % (2-11); NEUTROPHIL ABS# 1.88 10x3/uL (1.78-5.38); NEUTROPHILS 83.6 % (40-80); PLATELET COUNT 155 10x3/uL (130-400); RDW 20.3 % (11.5-14.5); WBC 2.3 10x3/uL (4.8-10.8)
--- NOTE | 2020-07-10 07:20 | NUR ---
RECIEVE REPORT. ALERT AND ORIENTED X4. SITTING UP ON SIDE OF BED. RT AT BEDSIDE. DENIES ANY NEEDS. 62 SINUS RYTHM ON TELEMETRY. CONTINUE PLAN OF CARE AND SAFETY PRECAUTIONS.
[2020-07-10 08:00] VITALS: BP 91/60
[2020-07-10 11:31] VITALS: BP 109/68
--- NOTE | 2020-07-10 12:41 | NUR ---
Nutrition Follow-up: Pt in neutropenic isolation. Overall fair PO intake. Nursing reports bloody stools. Diet: Cardiac PO intake: 63% avg x 6 meals (07/08-07/09) No new wt; last wt: 142# (07/07) Last BM: 07/10 Labs noted: BUN 52, Cre 1.7, GFR 41, Glu 145, Alb 2.8 Meds noted: Solumedrol, Humulin, Protonix, Miralax, KDur, zinc sulfate, vit C, vit D, electrolyte protocol -Encourage PO intake and honor food preferences within diet restrictions. -Offer nutrition supplements. -Need new wt. -RD will follow up within 3 days.
[2020-07-10 16:19] VITALS: BP 120/60
[2020-07-10 20:00] VITALS: BP 109/68
--- NOTE | 2020-07-11 01:29 | NUR ---
RESTING WITH EYES CLOSED, RESPERATIONS NON LABORED, NO S/S DISTRESS NOTED. BED LOW, CL IN REACH.
[2020-07-11 04:00] VITALS: BP 105/63
--- NOTE | 2020-07-11 04:30 | NUR ---
I have reviewed this patient and I concur with the Shift Assessment completed by the Licensed Practical Nurse today this shift.
[2020-07-11 05:07] LABS: BASOPHILS 0 % (0-2); EOSINOPHILS 0 % (0-7); HEMATOCRIT 30.1 % (42.0-54.0); HEMOGLOBIN 8.2 g/dL (13.5-17.5); IMMATURE GRANULOCYTES 0.3 % (0-5); LYMPHOCYTE ABS# 0.24 10x3/uL (1.32-3.57); LYMPHOCYTES 7.7 % (15-50); MCH 22.7 pg (26.0-34.0); MCHC 27.2 g/dL (31.0-37.0); MCV 83.4 fL (80.0-100.0); MONOCYTES 4.8 % (2-11); NEUTROPHIL ABS# 2.73 10x3/uL (1.78-5.38); NEUTROPHILS 87.2 % (40-80); PLATELET COUNT 153 10x3/uL (130-400); RBC 3.61 10x6/uL (4.20-6.10); RDW 20.4 % (11.5-14.5)
[2020-07-11 05:14] LABS: WBC 3.1 10x3/uL (4.8-10.8)
[2020-07-11 05:30] LABS: ALBUMIN 2.8 g/dL (3.4-5.0); ANION GAP 14.5 mmol/L (8-16); BILIRUBIN - TOTAL 0.66 mg/dL (0.2-1.3); CALCIUM 8.7 mg/dL (8.5-10.1); CARBON DIOXIDE 22.6 mmol/L (21.0-32.0); CREATININE - SERUM 1.5 mg/dL (0.6-1.3); MAGNESIUM - SERUM 2.1 mg/dL (1.8-2.4); POTASSIUM - SERUM 5.1 mmol/L (3.5-5.1); PROTEIN - SERUM 6.4 g/dL (6.4-8.2)
[2020-07-11 07:52] VITALS: BP 106/64
[2020-07-11 11:48] VITALS: BP 122/71
[2020-07-11 16:03] VITALS: BP 98/61
[2020-07-11 20:00] VITALS: BP 104/66
--- NOTE | 2020-07-11 20:40 | NUR ---
REPORT RECEIVED, WILL CONT POC. PT A&O, UP IN BED C/O OF PAIN BETWEEN SHOULDERS. S/S OF RESP DISTRESS NOTED. LABORED BREATHING, RR 26, SOB, PT GRASPING AT CHEST. NOTIFIED RT. O2 SAT 95%. RT PLACED PT ON BIPAP 40% PER MD CANDY ORDERS. O2 SAT NO 100% ON BIPAP. RR EVEN. PTS HR ELEVATED TO >130. EKG, VITALS, AND STAT TROPONIN DONE. TROPONIN 1.749. EKG ST WITH PAC'S. NOTIFIED ALLISON MORFIN APN WHO VERIFIED EKG RULINGS AND STATED TO CONSULT CARDIOLOGY. SPOKE WITH DAMION WHIPPLE APN. ORDERED TO RESTART SOTALOL AND A ONE TIME INJ OF LOVENOX 1MG/KG SC. BED LOCKED AND LOWERED. CL IN REACH. ASSESSMENT COMPLETED AT THIS TIME. WILL CONT TO MONITOR.
[2020-07-12] VITALS (7 sets, daily range): BP systolic 90–121; BP diastolic 60–81
[2020-07-12 07:11] LABS: HEMATOCRIT 31.4 % (42.0-54.0); HEMOGLOBIN 8.8 g/dL (13.5-17.5); MCH 23.1 pg (26.0-34.0); MCV 82.4 fL (80.0-100.0); MEAN PLATELET VOLUME 9.5 fL (7.4-10.4); PLATELET COUNT 165 10x3/uL (130-400); RBC 3.81 10x6/uL (4.20-6.10); RDW 20.4 % (11.5-14.5)
[2020-07-12 07:28] LABS: WBC 5.1 10x3/uL (4.8-10.8)
[2020-07-12 08:05] LABS: ALBUMIN 2.9 g/dL (3.4-5.0); ANION GAP 15.9 mmol/L (8-16); BILIRUBIN - TOTAL 0.75 mg/dL (0.2-1.3); CALCIUM 9.1 mg/dL (8.5-10.1); CARBON DIOXIDE 21.3 mmol/L (21.0-32.0); CREATININE - SERUM 1.7 mg/dL (0.6-1.3); MAGNESIUM - SERUM 2.3 mg/dL (1.8-2.4); PHOSPHOROUS 3.9 mg/dL (2.5-4.9); POTASSIUM - SERUM 5.2 mmol/L (3.5-5.1); PROTEIN - SERUM 6.7 g/dL (6.4-8.2)
[2020-07-12 09:51] LABS: CKMB 32.1 U/L (0.0-3.6); CREATINE KINASE 397 UL (21-232)
[2020-07-12 10:09] LABS: TROPONIN-I 73.791 ng/mL (0.000-0.060)
[2020-07-12 11:16] LABS: LYMPHOCYTES 6 % (15-50); MONOCYTES 8 % (2-11); NEUTROPHILS 83 % (40-80); PLATELET ESTIMATE NORMAL
--- NOTE | 2020-07-12 12:44 | NUR ---
Nutrition Follow-up: Overall fair PO intake. NPO this AM; elevated troponin. PO intake: 53% avg x 9 meals No new wt; last wt: 162# (07/07) Labs noted: Na 135, K+ 5.2, BUN 50, Cre 1.7, GFR 41, Glu 129, Alb 2.9 Meds noted: Solumedrol, Humulin, Protonix, Miralax, KDur, zinc sulfate, vit C, vit D, electrolyte protocol -Resume diet when medically feasible; encourage PO intake and honor food preferences within diet restrictions. -Need new wt. -RD will follow up within 4-5 days.
[2020-07-12 13:12] LABS: CKMB 34.9 U/L (0.0-3.6); CREATINE KINASE 367 UL (21-232)
--- NOTE | 2020-07-12 14:14 | NUR ---
EKG/TROP CALLED TO [facility]. PT IS NOT HAVING ANY SYMPTOMS AT PRESENT. RESTING QUIETLY IN BED.
[2020-07-12 17:17] LABS: HEMATOCRIT 30.9 % (42.0-54.0); HEMOGLOBIN 8.8 g/dL (13.5-17.5); MCH 23.3 pg (26.0-34.0); MCHC 28.5 g/dL (31.0-37.0); MCV 81.7 fL (80.0-100.0); MEAN PLATELET VOLUME 9.7 fL (7.4-10.4); PLATELET COUNT 148 10x3/uL (130-400); RBC 3.78 10x6/uL (4.20-6.10); RDW 20.4 % (11.5-14.5); WBC 4.6 10x3/uL (4.8-10.8)
[2020-07-12 17:27] LABS: ANION GAP 17.3 mmol/L (8-16); CALCIUM 9.1 mg/dL (8.5-10.1); CARBON DIOXIDE 19.8 mmol/L (21.0-32.0); CHOL - HDL RATIO 4.7 ratio (2.3-4.9); CREATININE - SERUM 1.8 mg/dL (0.6-1.3); POTASSIUM - SERUM 5.1 mmol/L (3.5-5.1)
[2020-07-12 17:32] LABS: CKMB 31.3 U/L (0.0-3.6); CREATINE KINASE 293 UL (21-232)
[2020-07-12 17:33] LABS: TROPONIN-I 43.693 ng/mL (0.000-0.060)
[2020-07-12 17:50] LABS: LYMPHOCYTES 8 % (15-50); MONOCYTES 3 % (2-11); NEUTROPHILS 86 % (40-80); PLATELET ESTIMATE NORMAL
--- NOTE | 2020-07-12 18:10 | NUR ---
2 UNITS INSULIN GIVEN TO LEFT ABDOMEN. FOR GLUCOSE 155
--- NOTE | 2020-07-12 18:48 | NUR ---
X2 ATTEMPTS TO RESTART IV. BOTH BLEW AFTER ACCESS GAINED.
--- NOTE | 2020-07-12 19:08 | NUR ---
SITTING UP IN BED AWAKE, ALERT, ORIENTED. WATCHING TV. CONCERNED ABOUT IV--WILL START A NEW IV FOR THIS PT--REASSURED. NO FURTHER NEEDS VOICED AT THIS TIME. 02 IN PROGRESS/ORDER. NO DISTRESS NOTED.
--- NOTE | 2020-07-12 19:59 | NUR ---
STARTED SECOND IV TO LEFT UPPER ARM W/20GA IV X'S 1 STICK, PT TOLERATED ALL WELL. ICE WATER BROUGHT TO ROOM/REQUEST, NO FURTHER NEEDS VOICED AT THIS TIME.
--- NOTE | 2020-07-12 23:07 | NUR ---
IV TO RIGHT AC REMOVED--CATH INTACT, BANDAGE APPLIED--NO FURTHER NEEDS VOICED.
[2020-07-12 23:45] LABS: CKMB 22.8 U/L (0.0-3.6); CREATINE KINASE 217 UL (21-232)
[2020-07-12 23:47] LABS: TROPONIN-I 28.574 ng/mL (0.000-0.060)
--- NOTE | 2020-07-13 05:34 | NUR ---
LEGAL PRACTICE MANAGER'A IN ROOM BATHING PT AT THIS TIME FOR HEART CATH THIS AM. PT RESTED WELL TONIGHT, LARGE BM NOTED--LEGAL PRACTICE MANAGER'S CLEANED PT--RESP EVEN AND UNLABORED ON RA. NO DISTRESS NOTED.
--- NOTE | 2020-07-13 05:37 | NUR ---
TAFFY CANDY MAKER'S IN ROOM BATHING PT FOR HEART CATH THIS AM--CONSENTS ARE SIGNED AND LOCATED ON PT'S CHART. PT RESTED WELL THOUGHOUT THE NIGHT W/O C/O W/BIPAP IN PLACE--PT NOW HAS / IN PLACE. NO DISTRESS NOTED.
[2020-07-13 07:05] LABS: ALBUMIN 3.2 g/dL (3.4-5.0); BILIRUBIN - TOTAL 1.12 mg/dL (0.2-1.3); CARBON DIOXIDE 19.9 mmol/L (21.0-32.0); CREATININE - SERUM 2.2 mg/dL (0.6-1.3); MAGNESIUM - SERUM 2.6 mg/dL (1.8-2.4); PROTEIN - SERUM 6.8 g/dL (6.4-8.2)
[2020-07-13 07:08] LABS: ANION GAP 19.2 mmol/L (8-16); PHOSPHOROUS 5.8 mg/dL (2.5-4.9)
[2020-07-13 07:11] LABS: POTASSIUM - SERUM 6.1 mmol/L (3.5-5.1)
[2020-07-13 07:35] LABS: HEMATOCRIT 32.8 % (42.0-54.0); HEMOGLOBIN 9.5 g/dL (13.5-17.5); MCH 24.1 pg (26.0-34.0); PLATELET COUNT 148 10x3/uL (130-400); RBC 3.95 10x6/uL (4.20-6.10); RDW 20.7 % (11.5-14.5)
[2020-07-13 07:37] LABS: WBC 6.6 10x3/uL (4.8-10.8)
[2020-07-13 08:21] VITALS: BP 82/72
[2020-07-13 09:11] LABS: INR 1.7 (0.85-1.17); PROTIME 18.5 SECONDS (11.6-15.0)
--- NOTE | 2020-07-13 10:00 | NUR ---
INDUSTRIAL RELATIONS COUNSELOR HERE TO TAKE PT TO PROCEDURE. SECVERAL ATTEMPTS MADE FOR IN IV, UNSUCCESSFUL BY MULTIPLE STAFF. INDUSTRIAL RELATIONS COUNSELOR AWARE & WILL START IN INDUSTRIAL RELATIONS COUNSELOR
[2020-07-13 11:31] LABS: LYMPHOCYTES 18 % (15-50); MONOCYTES 9 % (2-11); NEUTROPHILS 68 % (40-80); PLATELET ESTIMATE NORMAL; ROULEAUX OCC
--- NOTE | 2020-07-13 12:28 | NUR ---
1210-- RECEIVED FROM SED [employer] TEACHER WITH TR BAND TO RIGHT RADIAL & FEMSTOP TO RIGHT FEMORAL GROIN. PPPX2, BLE COOL TO TOUCH W/ DISCOLORIZATION THAT WAS PREVIOUSLY THERE. IV TO LEFT FOREARM 24G. O2 PER HFNC @7L/M. RESTING SUPINE AT PRESENT. NO DISTRESS
[2020-07-13 15:45] VITALS: BP 101/70
--- NOTE | 2020-07-13 19:30 | NUR ---
FEM STOP REMOVED. GAUZE DRESSING APPLIED TO SITE. NO BLEEDING PRESENT. CLIR. DOOR TO ROOM OPEN PER PATIENT REQUEST. BED IN LOWEST POSITION. DENIES ANY OTHER NEEDS OR CONCNERNS.
[2020-07-13 20:00] VITALS: BP 101/65
[2020-07-13 23:27] LABS: ANION GAP 15.5 mmol/L (8-16); CALCIUM 8.1 mg/dL (8.5-10.1); CARBON DIOXIDE 22.6 mmol/L (21.0-32.0); CREATININE - SERUM 2.2 mg/dL (0.6-1.3)
[2020-07-13 23:28] LABS: POTASSIUM - SERUM 5.1 mmol/L (3.5-5.1)
[2020-07-14] VITALS (14 sets, daily range): BP systolic 99–124; BP diastolic 46–99
--- NOTE | 2020-07-14 02:00 | NUR ---
PT AWAKE IN ROOM. NO S/S OF DISTRESS. CLIR, BED IN LOWEST POSITION. DOOR TO ROOM OPEN PER PATIENT REQUEST. WILL CONT TO MONITOR.
[2020-07-14 05:56] LABS: HEMATOCRIT 32.9 % (42.0-54.0); MCH 23.2 pg (26.0-34.0); MCHC 27.4 g/dL (31.0-37.0); MCV 84.8 fL (80.0-100.0); MEAN PLATELET VOLUME 9.2 fL (7.4-10.4); PLATELET COUNT 138 10x3/uL (130-400); RBC 3.88 10x6/uL (4.20-6.10); WBC 7.4 10x3/uL (4.8-10.8)
[2020-07-14 06:36] LABS: INR 1.74 (0.85-1.17); PROTIME 18.8 SECONDS (11.6-15.0)
[2020-07-14 07:00] LABS: ALBUMIN 2.9 g/dL (3.4-5.0); ANION GAP 18.7 mmol/L (8-16); BILIRUBIN - TOTAL 1.2 mg/dL (0.2-1.3); CALCIUM 8.5 mg/dL (8.5-10.1); CARBON DIOXIDE 19.3 mmol/L (21.0-32.0); CREATININE - SERUM 2.1 mg/dL (0.6-1.3); MAGNESIUM - SERUM 2.4 mg/dL (1.8-2.4); PHOSPHOROUS 5.4 mg/dL (2.5-4.9); PROTEIN - SERUM 6.8 g/dL (6.4-8.2)
[2020-07-14 07:09] LABS: TROPONIN-I 9.905 ng/mL (0.000-0.060)
[2020-07-14 07:45] LABS: LYMPHOCYTES 3 % (15-50); NEUTROPHILS 89 % (40-80); PLATELET ESTIMATE NORMAL
--- NOTE | 2020-07-14 12:50 | NUR ---
1240- REC'D TO ICU. ALL MONITORING EQUIPMENT ATTACHED AND ALARMS SET. BIPAP PLACED BY RT.
--- NOTE | 2020-07-14 12:58 | NUR ---
1030-- CALLED TO PT ROOM D/T HAVING TROUBLE BREATHING. RESP LABORED & TACHYPNEA ON 12LHFNC. PLACED ON BIPAP AT 100%. BILAT UPPER/LOWER EXTREMITIES BLUE/PURPLE IN COLOR, COOL TO TOUCH. DENIES ANY PAIN. MARINE GONGORA AT BEDSIDE. WILL CONTINUE TO MONITOR. 1235--REPORT CALLED TO SAVANNA IN ICU (RM [id number]) PT TRANSFERED IN BED. BELONGINGS AT BEDSIDE.
--- NOTE | 2020-07-14 13:23 | NUR ---
DR AMADOR NOTIFIED VIA PHONE OF [facility] CONSULT.
[2020-07-14 19:53] LABS: ALBUMIN 2.7 g/dL (3.4-5.0); ANION GAP 13.4 mmol/L (8-16); BILIRUBIN - TOTAL 1.51 mg/dL (0.2-1.3); CARBON DIOXIDE 23.3 mmol/L (21.0-32.0); CREATININE - SERUM 1.8 mg/dL (0.6-1.3); POTASSIUM - SERUM 4.7 mmol/L (3.5-5.1); PROTEIN - SERUM 6.2 g/dL (6.4-8.2)
[2020-07-15] VITALS (24 sets, daily range): BP systolic 82–123; BP diastolic 50–86
[2020-07-15 05:07] LABS: BASOPHILS 0.2 % (0-2); EOSINOPHILS 0 % (0-7); HEMATOCRIT 30.2 % (42.0-54.0); HEMOGLOBIN 8.3 g/dL (13.5-17.5); IMMATURE GRANULOCYTES 0.7 % (0-5); LYMPHOCYTE ABS# 0.45 10x3/uL (1.32-3.57); LYMPHOCYTES 7.7 % (15-50); MCH 23.3 pg (26.0-34.0); MCHC 27.5 g/dL (31.0-37.0); MCV 84.8 fL (80.0-100.0); MEAN PLATELET VOLUME 9.3 fL (7.4-10.4); MONOCYTES 0.9 % (2-11); NEUTROPHIL ABS# 5.27 10x3/uL (1.78-5.38); NEUTROPHILS 90.5 % (40-80); RBC 3.56 10x6/uL (4.20-6.10); RDW 21.3 % (11.5-14.5); WBC 5.8 10x3/uL (4.8-10.8)
[2020-07-15 05:08] LABS: PLATELET COUNT 96 10x3/uL (130-400)
[2020-07-15 05:51] LABS: ALBUMIN 2.6 g/dL (3.4-5.0); BILIRUBIN - TOTAL 1.58 mg/dL (0.2-1.3); CALCIUM 8.4 mg/dL (8.5-10.1); CARBON DIOXIDE 25.8 mmol/L (21.0-32.0); CREATININE - SERUM 1.8 mg/dL (0.6-1.3); MAGNESIUM - SERUM 2.5 mg/dL (1.8-2.4); PHOSPHOROUS 4.7 mg/dL (2.5-4.9); POTASSIUM - SERUM 4.8 mmol/L (3.5-5.1); PROTEIN - SERUM 5.8 g/dL (6.4-8.2)
--- NOTE | 2020-07-15 15:02 | EC ---
PATIENT:CONTRERAS SHARMA DATE OF SERVICE: 07/06/20 SEX: M MEDICAL RECORD: [id number] DATE OF : 38 LOCATION:[facility] AGE OF PATIENT: 80 ADMISSION DATE: 07/06/20 REFERRING PHYSICIAN: INTERPRETING PHYSICIAN: GENESIS DE LUNA MD ECHOCARDIOGRAM REPORT ECHO CHARGES 4 ECHO COMPLETE Date: 07/13/20 CLINICAL DIAGNOSIS: NSTEMI ECHOCARDIOGRAPHIC MEASUREMENTS (adult normal given) AC root (d.<3.7cm) 3.6 cm LV Septum d (<1.2 cm> 1.4 cm Valve Excursion 1.0 cm LV Septum (systole) 1.5 cm Left Atria (s.<4.0cm> 4.7 cm LVPW d(<1.2cm) 0.9 cm RV (d.<2.3cm) 4.2 cm LVPW (sytole) 1.4 cm LV diastole(<5.6CM) 6.2 cm MV E-F(>70mm/sec) cm LV systole 5.0 cm LVOT Diameter 1.5 cm MV exc.(>10mm) 2.2 cm Est.ejection fraction (50-75%) % DOPPLER: LVIT cm/sec A 83 cm/sec E 90 cm/sec LA cm/sec RVSP 40 mmHg LVOT 57 cm/sec AOP1/2T m/s Asc. Ao 141 cm/sec RVOT 32 cm/sec RA cm/sec PA 50 cm/sec AV Gradient Peak 8.0 mmHg AV Mean 4.2 mmHg AV Area 0.7 cm MV Gradient Peak 5.0 mmHg MV Mean 1.6 mmHg MV Area cm COMMENTS: Pet Walker: Michael CELESTIN Property Appraiser: 5 Dr. De Luna TAPE# Pericardial Effusion N DATE OF SERVICE: CLINICAL INDICATION: Non-STEMI. INTERPRETATION: Technically difficult study, inferior/inferobasal wall hypokinesis with preserved LV contractile function, ejection fraction approximately 45%. Left atrial chamber enlargement. Right atrial chamber enlargement. Right ventricular chamber enlarged with preserved contractile function. Aortic valve is not well visualized. Pulmonic valve not well visualized. Mitral valve appears normal. Moderate mitral regurgitation. ECHOCARDIOGRAM REPORT [id number] CONTRERAS SHARMA Tricuspid valve appears normal. Moderate tricuspid regurgitation. Tricuspid velocity of approximately 2.7 meters per second with PA pressures of approximately 40 mmHg suggestive of mild pulmonary hypertension. No pericardial effusion visualized. IMPRESSION: Inferior basal/inferior wall hypokinesia with preserved contractile function, ejection fraction approximately 45%. Left atrial chamber enlargement. Moderate mitral regurgitation. Right atrial and right ventricular chamber size is enlarged. Moderate tricuspid regurgitation with pulmonary artery pressures approximately 40 mmHg. TRANSINT:[id number] Voice Confirmation ID: [id number] DOCUMENT ID: [id number] GENESIS DE LUNA MD at 1502 CC: [id number] DICTATION DATE: 07/14/20 1245 CLOTHING AND TEXTILES TEACHER: 07/14/20 1347 ADM IN [place] [id number] [place] [id number]
--- NOTE | 2020-07-15 16:54 | NUR ---
OFF AND ON BIPAP ALL DAY. ON HIGH FLOW NC AT 10 LITERS UP TO AN HOUR, SOME TIMES HE STATES HE CAN NOT GET HIS BREATH, SOMETIMES HIS PULSE OX IS DOWN. RIJ CVP 15. LASIX 40 IV GIVEN. HUIZAR CATH PATENT. TAKING PO FLUIDS WELL, LIKES DIET SPRITI AND POPCICLES. WATCHING TV. TALKED WITH ON PHONE. NO PAIN. ABD SOFT BUT ROUND. ANKLES 2 PLUS PITTING EDEMA. RIJ INFUSING WITH NS AT 5 ML AND ABT. DRESSING DRY AND INTACT.
[2020-07-16] VITALS (11 sets, daily range): BP systolic 80–122; BP diastolic 50–86
--- NOTE | 2020-07-16 | NUR ---
Spoke to patient's and gave update. requested that attending physician or pet stylist give her a call.
[2020-07-16 05:15] LABS: APTT 32.1 SECONDS (22.8-39.4)
--- NOTE | 2020-07-16 05:15 | NUR ---
Patient has been frequently repostioned throughout the night. Patient has also become agitated due to not being able to drink water and soda as much as he would like to due to wearing BiPAP . I also explained to the patient that we need to monitor his fluid intake due to his current diagnosis and patient responded, "I don't care". . PRN lasix given for cvp of 15 per order. Will continue to monitor.
--- NOTE | 2020-07-16 05:23 | NUR ---
Patient received bath.
[2020-07-16 05:33] LABS: INR 2.57 (0.85-1.17); PROTIME 25.6 SECONDS (11.6-15.0)
[2020-07-16 05:37] LABS: ALBUMIN 2.6 g/dL (3.4-5.0); ANION GAP 18.8 mmol/L (8-16); BILIRUBIN - TOTAL 2.75 mg/dL (0.2-1.3); CALCIUM 8.2 mg/dL (8.5-10.1); CARBON DIOXIDE 21.3 mmol/L (21.0-32.0); CREATININE - SERUM 2.1 mg/dL (0.6-1.3); MAGNESIUM - SERUM 2.5 mg/dL (1.8-2.4); PHOSPHOROUS 4.8 mg/dL (2.5-4.9); POTASSIUM - SERUM 5.1 mmol/L (3.5-5.1); PROTEIN - SERUM 6.1 g/dL (6.4-8.2)
[2020-07-16 05:38] LABS: HEMATOCRIT 31.3 % (42.0-54.0); HEMOGLOBIN 8.8 g/dL (13.5-17.5); MCH 23.8 pg (26.0-34.0); MCHC 28.1 g/dL (31.0-37.0); MCV 84.8 fL (80.0-100.0); MEAN PLATELET VOLUME 10.3 fL (7.4-10.4); PLATELET COUNT 102 10x3/uL (130-400); RBC 3.69 10x6/uL (4.20-6.10); RDW 21.9 % (11.5-14.5); WBC 6.6 10x3/uL (4.8-10.8)
--- NOTE | 2020-07-16 06:44 | NUR ---
Osmin to Flyer Repairer and she ordered midodrine for BP support.
[2020-07-16 09:08] LABS: ANA REFLEX - DIRECT Negative (Negative)
[2020-07-16 10:08] LABS: EOSINOPHILS 1 % (0-7); LYMPHOCYTES 14 % (15-50); MONOCYTES 9 % (2-11); NEUTROPHILS 75 % (40-80); PLATELET ESTIMATE DECREASED
[2020-07-16 10:09] LABS: ANISOCYTOSIS OCC
--- NOTE | 2020-07-16 10:15 | OP ---
PATIENT NAME: CONTRERAS SHARMA MEDICAL RECORD: [id number] :38 LOCATION:.[facility] D.2315 ADMISSION DATE:07/06/20 SURGEON: LUKASZ RIZO MD DATE OF OPERATION: 07/13/2020 CATHETERIZATION REPORT PROCEDURE: We were able to cannulate right and left femoral artery, so femoral was used secondary to underlying vein graft as well as elevated troponin and concerns for a need for assist device; however, there are marked tortuosity of both iliacs. We were able to track the Glidewire up to the aortic valve; however, we were unable to take even a diagnostic catheter up to the level of past the diaphragm for support. Therefore, we switched to a right radial. We were able to inject the left system; however, again due to tortuosity of the subclavian and innominate, we were unable to torque the catheters appropriately to inject more than the left coronary system. Left coronary system showed patent left main and LAD. Left main stent was patent. The stent in the LAD was patent without progression of [place] disease. Circumflex was totally occluded. 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 Right coronary artery and right saphenous vein graft were not engaged. LV gram was not performed at this point secondary to contrast load. 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 We will check echo for LV function. Further based on clinical course. TRANSINT:[id number] Voice Confirmation ID: [id number] DOCUMENT ID: [id number] LUKASZ RIZO MD at 1015 CC: [id number] DICTATION DATE: 07/13/20 1147 LEAD NUCLEAR MEDICINE TECHNOLOGIST: 07/13/20 1854 ADM IN [facility] [address] [place] [address]
--- NOTE | 2020-07-16 10:28 | NUR ---
APNEA NOTED AT THIS TIME, BRADYCARDIC, ATROPINE GIVEN, CODE BLUE CALLED, SEE CODE BLUE SHEET
--- NOTE | 2020-07-16 10:35 | NUR ---
FAMILY NOTIFIED OF PT STATUS CHANGE BY MICHEAL RUIZ RN
--- NOTE | 2020-07-16 11:00 | NUR ---
FAMILY NOTIFIED OF PT BY MICHEAL RUIZ RN
--- NOTE | 2020-07-16 11:08 | NUR ---
DR. STOCKTON AT BEDSIDE TO PRONOUNCE
--- NOTE | 2020-07-16 11:17 | NUR ---
ISELA NOTIFIED OF PT
--- NOTE | 2020-07-16 11:50 | NUR ---
PEA NOTED, JOYCE BASS CALLED
--- NOTE | 2020-07-16 13:35 | NUR ---
HOME HERE FOR PT
[2020-07-17 11:11] LABS: HEPATITIS C ANTIBODY 0.1 S/CO RAT (0.0-0.9)
[2020-07-18 15:12] LABS: MITOCHONDRIAL ANTIBODY <20.0 Units (0.0-20.0)
[2020-07-19 15:12] LABS: SMOOTH MUSCLE ABS (ACTIN) 21 Units (0-19)
== END 2020-07-16 11:08 ==
LOC: D.ER 13:15 → D.ICU 16:05 → D.EDHOLD 16:05 → D.M2 16:05 → D.ICU 07-14 12:36
PROVIDERS: Family Medicine; Internal Medicine; Internal Medicine Cardiovascular Disease; Internal Medicine Gastroenterology; Internal Medicine Hematology & Oncology; Internal Medicine Interventional Cardiology; Internal Medicine Nephrology; Internal Medicine Pulmonary Disease; ADMIT Emergency Medicine; ATTEND Emergency Medicine
PROC: 5A09457 Assistance with Respiratory Ventilation, 24-96 Consecutive Hours, Continuous Positive Airway Pressure (ICD-10-PCS; 2020-07-12)
PROC: 4A023N7 Measurement of Cardiac Sampling and Pressure, Left Heart, Percutaneous Approach (ICD-10-PCS; 2020-07-13)
PROC: B2111ZZ Fluoroscopy of Multiple Coronary Arteries using Low Osmolar Contrast (ICD-10-PCS; principal; 2020-07-13 10:00)
PROC: 02HV33Z Insertion of Infusion Device into Superior Vena Cava, Percutaneous Approach (ICD-10-PCS; 2020-07-14)
PROC: B548ZZA Ultrasonography of Superior Vena Cava, Guidance (ICD-10-PCS; 2020-07-14)
PROC: 5A12012 Performance of Cardiac Output, Single, Manual (ICD-10-PCS; 2020-07-16)
PROC: 0BH17EZ Insertion of Endotracheal Airway into Trachea, Via Natural or Artificial Opening (ICD-10-PCS; 2020-07-16)
DX: I13.0 Hypertensive heart and chronic kidney disease with heart failure and stage 1 through stage 4 chronic kidney disease, or unspecified chronic kidney disease (principal); J18.9 Pneumonia, unspecified organism; I21.A1 Myocardial infarction type 2; J96.21 Acute and chronic respiratory failure with hypoxia; K72.00 Acute and subacute hepatic failure without coma; I50.33 Acute on chronic diastolic (congestive) heart failure; A41.9 Sepsis, unspecified organism; N17.9 Acute kidney failure, unspecified; N18.30 Chronic kidney disease, stage 3 unspecified; I25.10 Atherosclerotic heart disease of native coronary artery without angina pectoris; D63.1 Anemia in chronic kidney disease; J43.9 Emphysema, unspecified; I08.1 Rheumatic disorders of both mitral and tricuspid valves; Z85.038 Personal history of other malignant neoplasm of large intestine; D69.6 Thrombocytopenia, unspecified; E87.5 Hyperkalemia